=== PATIENT | female | born 1930 | race Caucasian/White ===

== ENCOUNTER → 2016-08-11 | Outpatient (CLI) | payer OTHER ==
--- NOTE | 2016-08-11 11:14 | RAD ---
Examination: CT chest without contrast History: History of chest pain, cough for 3 weeks. Comparison: 08/16/2004 Technique: Axial CT images were performed without contrast. Coronal sagittal reformats performed. PQRS Compliance Statement: One or more of the following individualized dose reduction techniques were utilized for this examination: 1. Automated exposure control 2. Adjustment of the mA and/or kV according to patient size 3. Use of iterative reconstruction technique Findings: The central airways are patent. Trace pericardial effusion identified. Diffuse coronary artery calcifications identified. There is a small 4 mm pulmonary nodule identified in the left upper lobe abutting the pleura. Mild prominent appearing interstitial lung markings identified in the peripheral portion of the bilateral upper lobes and in the lower lobes likely chronic interstitial lung disease. There is mild prominent bronchiectatic changes identified in the right middle lobe, bibasal lungs grossly similar to prior exam. No evidence of pleural effusion or pneumothorax identified. The visualized noncontrasted liver, spleen, adrenals grossly appears unremarkable. Degenerative changes identified in thoracic spine. Impression: 1. Bronchiectatic changes present in the bilateral lungs again identified. Mild prominent appearing bilateral interstitial lung markings in the bilateral lungs likely chronic interstitial changes. 2. 4 mm nodule identified in the left upper lobe of the lung abutting the pleura. Follow-up per Fleischner Society guidelines. 3 Trace pericardial effusion.. 4.Coronary artery calcifications. The Fleischner Society guidelines for followup of an incidentally detected 4 mm or smaller pulmonary nodule are as follows: If the patient is a low risk patient (non-smoker and no known tumor), a 4 mm nodule does not need followup. If the patient has a primary extra thoracic tumor or hematogenous infection, this nodule cannot be ignored as it could represent metastasis or septic embolus. If the patient is a high risk patient (smoker or has an extrathoracic primary), followup chest CT in one year is recommended. If unchanged, no further follow-up is recommended.
== END | disposition home or self-care (01) ==
LOC: CT 10:46
PROVIDERS: ATTEND Physician Assistant Medical
DX: R07.89 Other chest pain (principal); I31.3 Pericardial effusion (noninflammatory); I25.10 Atherosclerotic heart disease of native coronary artery without angina pectoris
CPT/HCPCS: 71250

== ENCOUNTER → 2017-02-06 | Outpatient (CLI) | payer OTHER ==
--- NOTE | 2017-02-06 09:13 | RAD ---
Chest, 2 views, 02/06/2017: History: Chest and back pain, dry cough Comparison is made to a study from 08/08/2016. The heart size is normal. There is calcific plaquing of the aorta. There are prominent interstitial markings in the lungs in an interstitial pattern. There is dominant involvement of the lung bases. The CT study of 08/11/2016 suggests that these findings are due to fibrosis. No new pulmonary infiltrate is seen. There is no evidence of pleural fluid. Moderate spurring is present in the spine. IMPRESSION: 1. Moderate pulmonary fibrosis. 2. No acute cardiopulmonary abnormality is detected.
== END | disposition home or self-care (01) ==
LOC: DXRADRC 08:15
PROVIDERS: ATTEND Physician Assistant Medical
DX: J84.10 Pulmonary fibrosis, unspecified (principal); R07.9 Chest pain, unspecified; I70.0 Atherosclerosis of aorta; M54.9 Dorsalgia, unspecified
CPT/HCPCS: 71020

== ENCOUNTER → 2017-05-02 | Outpatient (CLI) | payer OTHER ==
--- NOTE | 2017-05-02 10:19 | RAD ---
Carotid ultrasound, 05/02/2017: History: Intermittent visual disturbance Duplex evaluation of the carotid arteries in the neck was performed including grayscale, color-flow and spectral Doppler analysis. There is moderate smooth intimal thickening in both common carotid arteries with moderate partially calcified plaque at the left carotid bifurcation. A lesser degree of plaquing is present at the right bifurcation. The peak systolic velocity in the left internal carotid artery is 83 cm/s with an end-diastolic velocity of 18 cm/s. The peak systolic velocity in the right internal carotid artery is 72 cm/s with an end-diastolic velocity of 21 cm/s. The Doppler findings suggest narrowing in the 0-50% diameter range. Anterior grade flow is present in both vertebral arteries in the neck. IMPRESSION: Mild to moderate atherosclerotic plaquing at the carotid bifurcations, left greater than right, with underlying luminal narrowing in the 0-50% diameter range bilaterally. Note: Stenosis calculations for CTA, MRA and conventional angiography are based upon determination of the distal ICA diameter in accordance with the NASCET methodology. Stenosis calculations for Doppler studies are derived from validated velocity criteria which are known to correlate with NASCET methodology of determining stenosis.
== END | disposition home or self-care (01) ==
LOC: US 08:17
PROVIDERS: ATTEND Physician Assistant Medical
DX: H53.9 Unspecified visual disturbance (principal); I65.23 Occlusion and stenosis of bilateral carotid arteries
CPT/HCPCS: 93880

== ENCOUNTER → 2018-07-16 | Outpatient (CLI) | payer OTHER ==
--- NOTE | 2018-07-16 15:46 | RAD ---
Chest, 2 views, 07/16/2018: HISTORY: Cough, acute bronchitis Comparison is made to a study from 02/06/2017. The heart size is within normal limits. There is extensive calcific plaquing of the thoracic aorta. There is moderate interstitial prominence in the lungs with dominant involvement of the lung bases. A similar appearance was present on the previous study. The findings suggest chronic interstitial lung disease/fibrosis. No new pulmonary opacities are seen. There is no evidence of pleural fluid. There is a mild thoracolumbar scoliosis with moderate multilevel degenerative change. IMPRESSION: 1. Unchanged moderate bilateral interstitial opacities most compatible with fibrosis. 2. Extensive aortic atherosclerosis. 3. No new abnormality is detected. Electronically signed by: Angel Acevedo MD (07/16/2018 3:43 PM) [facility]
== END | disposition home or self-care (01) ==
LOC: PMG 11:34
PROVIDERS: ATTEND Family Medicine
DX: J20.9 Acute bronchitis, unspecified (principal); M41.85 Other forms of scoliosis, thoracolumbar region; M47.895 Other spondylosis, thoracolumbar region; I70.0 Atherosclerosis of aorta
CPT/HCPCS: 71046

== ENCOUNTER 2018-08-12 11:04 | Inpatient (IN) | payer OTHER ==
[~2018-08-12] VITALS: Ht 154.9 cm; Wt 51.0 kg
[2018-08-12 11:36] VITALS: BP 132/77
[2018-08-12 12:35] LABS: INFLUENZA A PATIENT NEGATIVE (NEGATIVE); INFLUENZA B PATIENT NEGATIVE (NEGATIVE)
[2018-08-12 13:15] LABS: BASO # 0.1 x10^3/uL (0.0-0.2); BASO % 1 % (0-3); EOS # 0.1 x10^3/uL (0.0-0.7); EOS % 1 % (0-3); HEMATOCRIT 31.3 % (36.0-47.0); HEMOGLOBIN 10.1 g/dL (12.0-15.5); LYMPH # 1.1 x10^3/uL (1.0-4.8); LYMPH % 11 % (24-48); MEAN CORPUSCULAR HEMOGLOBIN 26 pg (25-35); MEAN CORPUSCULAR HGB CONC 32 g/dL (31-37); MEAN CORPUSCULAR VOLUME 79 fL (79-100); MONO # 0.5 x10^3/uL (0.0-1.1); MONO % 5 % (0-9); NEUT # 8.6 x10^3uL (1.8-7.7); NEUT % 83 % (31-73); PLATELET COUNT 489 x10^3/uL (140-400); RED BLOOD COUNT 3.97 x10^6/uL (3.50-5.40); RED CELL DISTRIBUTION WIDTH 17.4 % (11.5-14.5); WHITE BLOOD COUNT 10.4 x10^3/uL (4.0-11.0)
[2018-08-12 13:29] LABS: ALBUMIN 2.4 g/dL (3.4-5.0); ALBUMIN/GLOBULIN RATIO 0.6 (1.0-1.7); CALCIUM 8.7 mg/dL (8.5-10.1); GFR 52.6; POTASSIUM 4.5 mmol/L (3.5-5.1); TOTAL BILIRUBIN 0.4 mg/dL (0.2-1.0); TOTAL PROTEIN 6.5 g/dL (6.4-8.2)
[2018-08-12] MEDS ORDERED: methylPREDNISolone SOD SUCC PF 125 MG/2 ML VIAL. IV ONE (13:30)
[2018-08-12] MEDS: IV NORMAL SALINE 1,000ML 1,000 ML IV SCH (13:54)
[2018-08-12] MEDS ORDERED: IOHEXOL 350 MG/ML 100 ML VIAL. IV ONE (14:00)
[2018-08-12] MEDS ORDERED: CONTRAST GIVEN MC PRN (14:00)
[2018-08-12 15:25] VITALS: BP 99/59
[2018-08-12] MEDS ORDERED: IPRATRPIUM/ALBUTEROL 0.5/2.5MG 3 ML NEBU. NEB SCH ×2 (16:00→20:00)
[2018-08-12] MEDS: IPRATRPIUM/ALBUTEROL 0.5/2.5MG 3 ML NEBU. NEB SCH ×2 (16:14→20:42)
[2018-08-12] MEDS ORDERED: MELO15TA23 PO (17:46)
[2018-08-12] MEDS ORDERED: LEVO50TA5 PO (17:46)
[2018-08-12] MEDS ORDERED: LOSA50TA14 PO (17:46)
[2018-08-12] MEDS ORDERED: CHOL10003 PO (17:46)
[2018-08-12] MEDS ORDERED: PRED5DRO16 EACHEYE (17:46)
[2018-08-12] MEDS ORDERED: HYDR12.58 PO (17:46)
--- NOTE | 2018-08-12 17:48 | RAD ---
Chest CTA History: Shortness of air Technique: After bolus of intravenous contrast, CT imaging was performed of the chest. Multiplanar reconstruction images to include MIP reconstruction images are submitted. Exposure: One or more of the following individualized dose reduction techniques were utilized for this examination: 1. Automated exposure control 2. Adjustment of the mA and/or kV according to patient size 3. Use of iterative reconstruction technique. Comparison: Noncontrast chest CT August 11, 2016 Findings: [ ] There is fairly significant motion degradation especially for the mid to inferior aspect of the exam, significantly limits accurate evaluation for pulmonary embolic disease more inferiorly. No embolism is identified of the main pulmonary arteries or the proximal segmental branches of the upper lobes. There is some scattered atelectasis and reticular density at the lung bases bilaterally, also degree of septal thickening and honeycombing near the lung bases. There is no pneumothorax or pleural pericardial fluid. There is some coronary calcification. Thoracic aortic caliber is within normal limits without intraluminal flap, scattered plaque present. There is probable hepatic steatosis. There is some gas distention of the visualized esophagus. Impression: 1. No central pulmonary embolism is identified although limited evaluation for pulmonary embolic disease as stated especially of the inferior aspects of the pulmonary arteries. There is atelectasis with basilar predominance bilaterally, also degree of reticular density and honeycombing with basilar predominance likely component of interstitial lung disease. 2. There is some coronary calcification. 3. There is probable hepatic steatosis. Electronically signed by: Abhishek Hardin MD (08/12/2018 5:44 PM) [facility]
[2018-08-12] MEDS ORDERED: prednisoLONE ACETATE 1% OPHTH SUSPENSION 5ML BOTTLE. OU PRN (19:00)
--- NOTE | 2018-08-12 19:06 | HP ---
ADMIT DATE: 08/12/2018 An 88-year-old female seen at the [facility], came in with increased shortness of breath, difficulty breathing. The patient was admitted to the hospital for further evaluation and treatment of her acute exacerbation of COPD as well as the possibility of pneumonia as well. The patient is having difficulty with breathing, very short of breath. Denied chest pain, denied any nausea, vomiting, melena, hematochezia, hematemesis. CLARI KENYON MD DR: LUIS ALFREDO/kulwinder JOB#: [id number] / [id number]
[2018-08-12 19:09] VITALS: BP 95/59
[2018-08-12] MEDS: methylPREDNISolone SOD SUCC PF 40 MG/ML VIAL. IV SCH (21:00)
[2018-08-12 23:12] VITALS: BP 95/66
[2018-08-13 05:14] VITALS: BP 113/64
[2018-08-13] MEDS: IPRATRPIUM/ALBUTEROL 0.5/2.5MG 3 ML NEBU. NEB SCH ×4 (05:38→20:32)
[2018-08-13] MEDS: IV NORMAL SALINE 1,000ML 1,000 ML IV SCH ×2 (05:49→16:53)
[2018-08-13] MEDS: LEVOTHYROXINE 50 MCG TABLET PO SCH (05:49)
[2018-08-13 06:39] LABS: BASO % 0 % (0-3); EOS % 0 % (0-3); HEMATOCRIT 30.6 % (36.0-47.0); HEMOGLOBIN 9.9 g/dL (12.0-15.5); LYMPH # 1.3 x10^3/uL (1.0-4.8); LYMPH % 12 % (24-48); MEAN CORPUSCULAR HEMOGLOBIN 26 pg (25-35); MEAN CORPUSCULAR HGB CONC 32 g/dL (31-37); MEAN CORPUSCULAR VOLUME 79 fL (79-100); MONO # 0.1 x10^3/uL (0.0-1.1); MONO % 1 % (0-9); NEUT # 8.9 x10^3uL (1.8-7.7); NEUT % 86 % (31-73); PLATELET COUNT 450 x10^3/uL (140-400); RED BLOOD COUNT 3.88 x10^6/uL (3.50-5.40); RED CELL DISTRIBUTION WIDTH 17.3 % (11.5-14.5); WHITE BLOOD COUNT 10.3 x10^3/uL (4.0-11.0)
[2018-08-13 06:48] LABS: CALCIUM 8.7 mg/dL (8.5-10.1); CREATININE 1.1 mg/dL (0.6-1.0); GFR 47.1; POTASSIUM 4.3 mmol/L (3.5-5.1)
[2018-08-13 07:15] LABS: BACTERIA,URINE 0 /HPF (0-FEW); BILIRUBIN,URINE NEG (NEG); CLARITY,URINE CLEAR; COLOR,URINE YELLOW; GLUCOSE,URINE 250 mg/dL (NEG); NITRITE,URINE NEG (NEG); SQUAMOUS EPITHELIAL CELL,UR OCC /LPF; UROBILINOGEN,URINE 0.2 mg/dL (0.2 mg/dL)
[2018-08-13] MEDS: CHOLECALCIFEROL (VITAMIN D3) 1,000 UNIT TABLET PO SCH (08:47)
[2018-08-13] MEDS: hydroCHLOROthiazide 12.5 MG CAPSULE PO SCH (08:47)
[2018-08-13] MEDS: methylPREDNISolone SOD SUCC PF 40 MG/ML VIAL. IV SCH ×3 (08:47→23:28)
[2018-08-13] MEDS: MELOXICAM 15 MG TABLET. PO SCH (08:47)
[2018-08-13] MEDS: LOSARTAN 50 MG TABLET. PO SCH (08:48)
[2018-08-13 10:46] VITALS: BP 104/63
[2018-08-13] MEDS ORDERED: PIP/TAZO PER PHARMACY MC PRN (15:00)
[2018-08-13 15:30] VITALS: BP 101/53
[2018-08-13] MEDS ORDERED: VANCOMYCIN 1.25 GM in IV NORMAL SALINE 250ML 250 ML IV ONE (16:00)
[2018-08-13] MEDS: VANCOMYCIN PER PHARMACY MC PRN (16:01)
--- NOTE | 2018-08-13 16:19 | HP ---
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 She has also had cough with scanty sputum. She has also had fever and has had lab work, which showed that she has elevated D-dimer. Her influenza A and B were negative and she underwent CT angio of the chest that showed no evidence of pulmonary embolism, but she has atelectasis with basilar predominance bilaterally, also degree of reticular density accompanied with basilar predominance, likely component of interstitial lung disease. There is some coronary calcification and was admitted for probably healthcare-associated pneumonia, possible overlying and underlying pulmonary fibrosis. She was continued on her medication as well as IV antibiotic and IV steroids. PAST MEDICAL HISTORY: Significant for hypertension, hyperlipidemia, hypothyroidism and she has also glaucoma. PAST SURGICAL HISTORY: Significant for left ankle fracture, status post open reduction and internal fixation. ALLERGIES: She has no known drug allergies. MEDICATIONS: She is currently on losartan potassium 50 mg once a day, Meloxicam 15 mg daily, hydrochlorothiazide 12.5 mg daily, prednisolone acetate 1 drop to both eyes 4 times a day, levothyroxine sodium 50 mcg daily, Colecalciferol vitamin D3 1000 International unit once a day. FAMILY HISTORY: She has 2 sisters and 2 brothers, all younger than her. She has one of the sister is a nun, the other one is and has 10 children and both lives in [place]. She has 2 brothers, both lives in [place], one has coronary artery disease and the younger one has diabetes. Her father at age of 90. Mother at age of 69. 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 SOCIAL HISTORY: She does not smoke and does not like alcohol. REVIEW OF SYSTEMS: The patient denied any blurring of vision, cataract, glaucoma or macular degeneration. Denied any earache, tinnitus or sensorineural deafness. Denied any nosebleeds, stuffy nose or postnasal drip. Denied any sore throat, sore tongue, toothache, hoarseness of voice or difficulty swallowing. Denied any nausea, vomiting, diarrhea or constipation. Denied any hematemesis, melena or hematochezia. Denied any dysuria, frequency or hematuria. She did complain of shortness of breath, cough with scanty sputum. PHYSICAL EXAMINATION: GENERAL: On arrival to the Emergency Room, she apparently was slightly tachypneic, pale, but no jaundice, cyanosis, or thyromegaly. No jugular venous distention. No limb edema. VITAL SIGNS: Her heart rate was 120, blood pressure was 132/77, temperature was 97.2, respiratory rate was 20, and oxygen saturation was 99%. HEAD, EYES, EARS, NOSE AND THROAT: Showed normocephalic, atraumatic. NECK: Supple. HEART: Showed normal first and second heart sounds. No gallop or murmur. CHEST: Shows central trachea, equal bilateral expansion, air entry, vesicular breath sounds, with crepitation, mostly on the right side posteriorly. I could not appreciate any crepitation. ABDOMEN: Slightly distended, soft and nontender. NEUROLOGIC: She was awake, alert, responding appropriately. Her cranial nerves are intact. EXTREMITIES: She moves extremities without difficulty. LABORATORY DATA: Her lab work on admission showed a white cell count of 10,400, hemoglobin 10, hematocrit 31, MCV 79 and platelet count of 489,000 with normal manual differential. Her D-dimer was 2.99. Her chemistry showed a serum sodium 134, potassium 4.5, chloride 101, bicarbonate 25, anion gap of 8, BUN 23, creatinine 1, estimated GFR was 52 mL per minute. Her glucose 104, calcium was 8.7, lactic acid was 1.5. Total bilirubin, AST, ALT, alkaline phosphatase were normal. Total protein was 6.5, albumin was 2.4. Her urinalysis was negative for nitrite and leukocyte esterase. There were 3-5 rbc's, 1-4 wbc's, and no bacteria. Her nasal screen for MRSA by PCR was negative and her influenza A and B were negative. She did have a CT angio of the chest, which showed that the patient has no central pulmonary embolism. She has atelectasis with basilar predominance bilaterally, also degree of reticular density accompanied with basilar predominance, likely component of interstitial lung disease, some coronary calcification and probably hepatic steatosis. PLAN: My plan is to continue with all her medication. I will change her IV antibiotic. Increase her steroids to 3 times a day. I will start her on vancomycin and Zosyn and discontinue her ceftriaxone and decide further management accordingly. DYLAN BENÍTEZ MD DR: PURA/kulwinder JOB#: [id number] / [id number]
[2018-08-13 19:30] VITALS: BP 106/65
[2018-08-13] MEDS: PIPERACILLIN/TAZOBACTAM 2.25 GM in IV NORMAL SALINE 50ML 50 ML IV SCH ×2 (19:30→23:28)
[2018-08-13] MEDS: MONTELUKAST 10 MG TABLET. PO SCH (20:14)
[2018-08-13] MEDS: LACTOBACILLUS RHAMNOSUS GG 1 CAPSULE. PO SCH (20:15)
[2018-08-13 22:18] VITALS: BP 116/63
--- NOTE | 2018-08-13 23:57 | PN ---
DATE: 08/13/2018 SUBJECTIVE: The patient is resting slightly propped up in bed, clearly short of breath. She is unable to finish sentence, complaining of cough, shortness of breath. PHYSICAL EXAMINATION: GENERAL: When I examined her, she looked pale, but no jaundice, cyanosis, or thyromegaly. No jugular venous distension. No lower limb edema. VITAL SIGNS: Her heart rate was 105, blood pressure was 104/63, temperature was 98.2, respiratory rate was 18 and oxygen saturation was 98% on room air. HEAD, EYES, EARS, NOSE AND THROAT: Showed normocephalic, atraumatic. NECK: Supple. CARDIAC: Normal first and second heart sounds. No gallop, rub or murmur. CHEST: Showed central trachea, equal bilateral expansion, air entry, vesicular sounds with crepitation mostly on the right side posteriorly. I could not appreciate any rhonchi. ABDOMEN: Scaphoid, soft, nontender. NEUROLOGIC: She is awake, alert, responding appropriately. All cranial nerves are intact. She moves extremities without difficulty. LABORATORY DATA: Her white cell count was 10,000, hemoglobin 10, hematocrit 30, MCV 79 and platelet count of 450,000. Her chemistry showed a serum sodium 136, potassium 4.3, chloride 103, bicarbonate 22, anion gap of 11, BUN 23, creatinine 1.1. Estimated GFR was 47 mL and blood glucose 185, calcium was 8.7. ASSESSMENT: 1. Healthcare-associated pneumonia, questionable underlying interstitial lung disease. 2. Hypertension. 3. Hyperlipidemia. 4. Hypothyroidism. PLAN: To continue with IV antibiotics. I changed her antibiotic to vancomycin and Zosyn. I increased her steroids to be taken every 8 hours. I added Mucinex and Singulair. DYLAN BENÍTEZ MD DR: PURA/kulwinder JOB#: [id number] / [id number]
[2018-08-14] MEDS: IPRATRPIUM/ALBUTEROL 0.5/2.5MG 3 ML NEBU. NEB SCH ×4 (05:20→20:51)
[2018-08-14] MEDS: PIPERACILLIN/TAZOBACTAM 2.25 GM in IV NORMAL SALINE 50ML 50 ML IV SCH ×3 (05:32→19:07)
[2018-08-14] MEDS: LEVOTHYROXINE 50 MCG TABLET PO SCH (05:32)
[2018-08-14] MEDS: IV NORMAL SALINE 1,000ML 1,000 ML IV SCH ×2 (05:37→20:38)
[2018-08-14 05:48] VITALS: BP 117/63
[2018-08-14] MEDS: MELOXICAM 15 MG TABLET. PO SCH ×2 (09:00→09:06)
[2018-08-14] MEDS: CHOLECALCIFEROL (VITAMIN D3) 1,000 UNIT TABLET PO SCH (09:05)
[2018-08-14] MEDS: LOSARTAN 50 MG TABLET. PO SCH (09:05)
[2018-08-14] MEDS: hydroCHLOROthiazide 12.5 MG CAPSULE PO SCH (09:05)
[2018-08-14] MEDS: methylPREDNISolone SOD SUCC PF 40 MG/ML VIAL. IV SCH ×2 (09:05→17:16)
[2018-08-14] MEDS: LACTOBACILLUS RHAMNOSUS GG 1 CAPSULE. PO SCH ×2 (09:05→20:36)
[2018-08-14 10:35] VITALS: BP 124/68
[2018-08-14 15:08] VITALS: BP 97/59
[2018-08-14] MEDS ORDERED: VANCOMYCIN 750 MG in IV NORMAL SALINE 250ML 250 ML IV SCH (16:00)
[2018-08-14 19:03] VITALS: BP 117/60
[2018-08-14] MEDS: MONTELUKAST 10 MG TABLET. PO SCH (20:36)
[2018-08-14] MEDS ORDERED: ACETAMINOPHEN 325 MG TABLET PO PRN (21:15)
--- NOTE | 2018-08-14 21:17 | PN ---
DATE: 08/14/2018 SUBJECTIVE: The patient is sitting comfortably in her chair, in no apparent distress. She has been up and about, walking with a walker, maintaining adequate saturations of 99% on room air. On questioning her, she stated that she is feeling much better, less short of breath. No chest tightness. PHYSICAL EXAMINATION: GENERAL: When I examined her, she looked well and was clearly in no apparent respiratory distress. No pallor, jaundice, cyanosis or thyromegaly. No jugular venous distension. She is pale, no jaundice, cyanosis, or thyromegaly. No jugular venous distension. No lower limb edema. VITAL SIGNS: Her heart rate was 82, blood pressure was ____, temperature was 97.6, respiratory rate was 18 and oxygen saturation was 99% on room air. HEAD, EYES, EARS, NOSE AND THROAT: Showed normocephalic, atraumatic. NECK: Supple. HEART: Showed normal first and second heart sounds with no gallop, rub or murmur. CHEST: Showed central trachea. She has equal bilateral chest expansion, air entry, vesicular breath sounds with crepitation mostly in the right side posteriorly. I could not appreciate any rhonchi. ABDOMEN: Scaphoid, soft, nontender. NEUROLOGIC: She is awake, alert, responding appropriately. All her cranial nerves are intact. She moves extremities without difficulty. She ambulates with a walker. Her intake over the last 24 hours was 900 and output was 400. LABORATORY DATA: As of this morning showed that her serum sodium was 136, potassium 4.3, chloride 103, bicarbonate 22, anion gap 11, BUN 23, creatinine 1.1. Her white cell count was 10,000, hemoglobin 10, hematocrit 30, MCV 79 and platelet count 450,000. ASSESSMENT: 1. Healthcare-associated pneumonia, question of possible underlying interstitial lung disease and responding well to IV antibiotic. 2. Hypertension. 3. Hyperlipidemia. 4. Hypothyroidism. PLAN: To continue with vancomycin and Zosyn. Continue with the Mucinex and Singulair. Continue with oxygen supplementation as needed. Continue with IV steroids and all other medication. I will evaluate her again tomorrow, and if she remains stable, she can be discharged back to continue on oral antibiotic in a tapering course of steroids. DYLAN BENÍTEZ MD DR: PURA/kulwinder JOB#: [id number] / [id number]
[2018-08-14 23:02] VITALS: BP 110/61
[2018-08-15] MEDS: PIPERACILLIN/TAZOBACTAM 2.25 GM in IV NORMAL SALINE 50ML 50 ML IV SCH ×3 (00:25→13:52)
[2018-08-15] MEDS: methylPREDNISolone SOD SUCC PF 40 MG/ML VIAL. IV SCH ×2 (00:26→08:33)
[2018-08-15 05:03] VITALS: BP 130/74
[2018-08-15] MEDS: IPRATRPIUM/ALBUTEROL 0.5/2.5MG 3 ML NEBU. NEB SCH ×2 (05:03→10:45)
[2018-08-15] MEDS: LEVOTHYROXINE 50 MCG TABLET PO SCH (05:45)
[2018-08-15 06:04] LABS: BASO % 0 % (0-3); EOS % 0 % (0-3); HEMATOCRIT 30.2 % (36.0-47.0); HEMOGLOBIN 9.4 g/dL (12.0-15.5); LYMPH # 1.2 x10^3/uL (1.0-4.8); LYMPH % 9 % (24-48); MEAN CORPUSCULAR HEMOGLOBIN 25 pg (25-35); MEAN CORPUSCULAR HGB CONC 31 g/dL (31-37); MEAN CORPUSCULAR VOLUME 80 fL (79-100); MONO # 0.2 x10^3/uL (0.0-1.1); MONO % 2 % (0-9); NEUT # 11.5 x10^3uL (1.8-7.7); NEUT % 89 % (31-73); PLATELET COUNT 425 x10^3/uL (140-400); RED CELL DISTRIBUTION WIDTH 17.6 % (11.5-14.5); WHITE BLOOD COUNT 12.9 x10^3/uL (4.0-11.0)
[2018-08-15 06:15] LABS: CALCIUM 8.7 mg/dL (8.5-10.1); CREATININE 1.1 mg/dL (0.6-1.0); GFR 47.1; POTASSIUM 4.2 mmol/L (3.5-5.1)
[2018-08-15] MEDS: LACTOBACILLUS RHAMNOSUS GG 1 CAPSULE. PO SCH (08:33)
[2018-08-15] MEDS: MELOXICAM 15 MG TABLET. PO SCH ×2 (08:34→08:46)
[2018-08-15] MEDS: LOSARTAN 50 MG TABLET. PO SCH (08:34)
[2018-08-15] MEDS: hydroCHLOROthiazide 12.5 MG CAPSULE PO SCH (08:34)
[2018-08-15] MEDS: CHOLECALCIFEROL (VITAMIN D3) 1,000 UNIT TABLET PO SCH (08:34)
[2018-08-15 10:41] VITALS: BP 113/61
[2018-08-15 14:52] VITALS: BP 113/67
[2018-08-15] MEDS ORDERED: AMOX1TAB58 PO (15:17)
[2018-08-15 15:53] LABS: VANC TR 14.1 mcg/mL (10.0-20.0)
[2018-08-15] MEDS: VANCOMYCIN PER PHARMACY MC PRN (16:25)
--- NOTE | 2018-08-15 16:41 | DS ---
DATE OF DISCHARGE: 08/15/2018 HOSPITAL COURSE: The patient is sitting comfortably in her chair, in no apparent distress. Definitely much better. She is not tachypneic. She is able to finish sentence without difficulty. She is not using any accessory muscles and has been up and about, maintaining her oxygen saturation at 96% on room air. OBJECTIVE: GENERAL: When I examined her this afternoon, she looked well and was clearly in no apparent respiratory distress, pale, but no jaundice, cyanosis, or thyromegaly. No jugular venous distention. No limb edema. VITAL SIGNS: Her heart rate was 78, blood pressure 113/67, temperature was 98.1, respiratory rate 20, and oxygen saturation was 96%. HEAD, EYES, EARS, NOSE AND THROAT: Showed normocephalic, atraumatic. NECK: Supple. HEART: Showed normal first and second heart sounds with no gallop, rub or murmur. CHEST: Showed central trachea, equal bilateral expansion, air entry, vesicular sounds with crepitation mostly in the right side posteriorly. I could not appreciate any rhonchi. ABDOMEN: Distended and nontender. NEUROLOGIC: She is awake, alert, responding appropriately. All cranial nerves are intact. She moves extremities without difficulty. She ambulates with a walker. Her intake was 2200, output was 1125. LABORATORY DATA: Her lab work this morning showed a white cell count 12,900, hemoglobin 9, hematocrit 30, MCV 80 and platelet count of 425,000. Her chemistry showed a serum sodium 141, potassium 4.2, chloride 108, bicarbonate 20, anion gap of 13, BUN 25, creatinine was 1.1. Estimated GFR was 47 mL per minute. Her glucose 184, calcium was 8.7. ASSESSMENT: 1. Healthcare-associated pneumonia with possible underlying interstitial lung disease. The patient is responding very well to the antibiotic. However, her blood culture is so far negative and the patient was switched to Augmentin 500/125 twice a day for most of 7 more days. 2. Hypertension. 3. Hyperlipidemia. 4. Hypothyroidism. 5. Protein-calorie malnutrition with serum albumin is only 2.4 g/dL. The patient also blood sugar was high after we put her on steroids. I recommended that she should follow with her primary care physician to check her blood sugar. DYLAN BENÍTEZ MD DR: PURA/kulwinder JOB#: [id number] / [id number]
[2018-08-16] MEDS ORDERED: predniSONE 20 MG TABLET PO SCH (09:00)
== END 2018-08-15 16:21 | disposition home or self-care (01) | DRG 193 ==
LOC: 1 SOUTH 11:04
PROVIDERS: ADMIT Internal Medicine; ATTEND Internal Medicine
DX: J18.9 Pneumonia, unspecified organism (principal); E43 Unspecified severe protein-calorie malnutrition; J44.1 Chronic obstructive pulmonary disease with (acute) exacerbation; J98.11 Atelectasis; J44.0 Chronic obstructive pulmonary disease with (acute) lower respiratory infection; Y95 Nosocomial condition; I10 Essential (primary) hypertension; E78.5 Hyperlipidemia, unspecified; E03.9 Hypothyroidism, unspecified; H40.9 Unspecified glaucoma; I25.10 Atherosclerotic heart disease of native coronary artery without angina pectoris; Z82.49 Family history of ischemic heart disease and other diseases of the circulatory system; Z83.3 Family history of diabetes mellitus; Z87.81 Personal history of (healed) traumatic fracture; Z68.21 Body mass index [BMI] 21.0-21.9, adult
CPT/HCPCS: 36415; 71275; 80048; 80053; 80202; 81001; 83605; 85025; 85379; 87086; 87641; 87804; 94640; J0696; J2543; J2920; J2930; J3370; J7050; J7620; Q9967; 97110; 97116; 97535; J7030

== ENCOUNTER → 2018-10-10 | Outpatient (CLI) | payer OTHER ==
[~2018-10-10] MED LIST: AMOX1TAB58 PO; CHOL10003 PO; HYDR12.58 PO; LEVO50TA5 PO; LOSA50TA14 PO; MELO15TA23 PO; PRED5DRO16 EACHEYE
--- NOTE | 2018-10-10 11:04 | RAD ---
CT head without contrast dated 10/10/2018. No comparison available. Clinical data indication: Headaches. TECHNIQUE: Contiguous axial imaging the head was performed from skull base to vertex. No contrast administered. One or more of the following individualized dose reduction techniques were utilized for this examination: 1. Automated exposure control 2. Adjustment of the mA and/or kV according to patient size 3. Use of iterative reconstruction technique FINDINGS: Ventricles and sulci are mildly prominent for age. No midline shift or mass effect. Brain parenchyma is of normal attenuation. No hemorrhage or extra-axial collection. There is minimal mucosal thickening of the posterior ethmoid air cells on the left. The visualized paranasal sinuses and mastoid air cells are otherwise clear. No apparent calvarial abnormality. Atherosclerotic calcific patient of the parasellar carotid arteries. IMPRESSION: 1. No evidence of acute intracranial hemorrhage or mass. 2. Mild atrophy for age. Electronically signed by: Serge Perez MD (10/10/2018 11:00 AM) [id number]
== END | disposition home or self-care (01) ==
LOC: CT 10:33
PROVIDERS: ATTEND Physician Assistant Medical
DX: G31.9 Degenerative disease of nervous system, unspecified (principal); I70.8 Atherosclerosis of other arteries
CPT/HCPCS: 70450

== ENCOUNTER → 2018-12-19 | Outpatient (CLI) | payer OTHER ==
[~2018-12-19] MED LIST changes: +AZIT250T6 PO; +DULO30CA2 PO; +FERR325T14 PO; +FURO-69 PO; +HYDR200T5 PO; +IOHEXOL 240 MG/ML 50ML VIAL. ONE
[2018-12-19] MEDS: IOHEXOL 300 MG/ML 75 ML VIAL. IV ONE (09:50)
--- NOTE | 2018-12-19 11:20 | RAD ---
Examination: CT CHEST ABD PELVIS W/CONTRAST History: Weight loss, anemia Comparison/Correlation: CTA of the chest 08/12/2018, CT chest without contrast 08/11/2016, a 22,013 CT abdomen and pelvis with contrast Findings: Axial images of the chest, abdomen, and pelvis were obtained following IV and oral contrast. Sagittal and coronal reformatted images were provided. Axial images of chest, abdomen, and pelvis were obtained following IV contrast. Sagittal and coronal reformatted images were provided. Small nodule involving the anterior left mid thoracic region is unchanged with 08/11/2016. Fibrotic findings with honeycombing of the lung bases bilaterally are present. Few bullae involving lung caal noted. No enlarged thoracic lymph nodes. Atherosclerotic calcific involvement of the thoracic aorta is noted. Central pulmonary arterial vasculature is unremarkable. Calcified granuloma involving the posterior left mid thoracic region. Right humeral head anchor suture is present. Liver, spleen, pancreas, adrenal glands, and kidneys are unremarkable. Moderate quantity of stool is noted within the distal colon. Diverticulosis is present without acute inflammation. No inflammatory findings about the cecum. Gallbladder fossa is unremarkable. No ascites or pelvic free fluid. No enlarged abdominal or pelvic lymph nodes. Calcific involvement of the abdominal aorta is notable. Exaggerated lordosis of lumbar spine noted. Dextroconvex scoliosis of the low thoracic and lumbar spine is evident. Sacralization of L5 noted. Severe disc space narrowing involving the low thoracic spine and from T12 to L2 is present. Retrolisthesis of L1 in relation L2 is mild. Impression: Fibrosis and honeycombing of the lung bases of concern for usual interstitial pneumonia/idiopathic pulmonary fibrosis. No suspicious pulmonary nodule or infiltrate. Diverticulosis. PQRS Compliance Statement: One or more of the following individualized dose reduction techniques were utilized for this examination: 1. Automated exposure control 2. Adjustment of the mA and/or kV according to patient size 3. Use of iterative reconstruction technique Electronically signed by: Sotero Aguilar MD (12/19/2018 11:17 AM) [id number]
== END | disposition home or self-care (01) ==
LOC: CT 08:33
PROVIDERS: ATTEND Internal Medicine Hematology & Oncology
DX: K57.30 Diverticulosis of large intestine without perforation or abscess without bleeding (principal); J84.10 Pulmonary fibrosis, unspecified; M41.85 Other forms of scoliosis, thoracolumbar region; M48.05 Spinal stenosis, thoracolumbar region
CPT/HCPCS: 71260; 74177; Q9967

== ENCOUNTER 2018-12-22 08:05 | Inpatient (IN) | payer OTHER ==
[~2018-12-22] VITALS: Ht 154.9 cm; Wt 46.8 kg
[~2018-12-22 08:05] MED LIST changes: -AZIT250T6 PO; -DULO30CA2 PO; -FERR325T14 PO; -FURO-69 PO; -HYDR200T5 PO; -IOHEXOL 240 MG/ML 50ML VIAL. ONE
--- NOTE | 2018-12-22 08:23 | EKG ---
[address] [address] Test Date: 2018-12-22 Test Time: 08:22:04 Pat Name: JAYE MOROCHO Department: Room: Gender: F Rehab Care Assistant: : [id number] Requested By: SHELLY LIN Order Number: [id number] Reading MD: Measurements Intervals [place] Rate: 94 P: 9 FL: 144 QRS: -13 QRSD: 74 T: 6 QT: 332 QTc: 415 Interpretive Statements SINUS RHYTHM LEFTWARD AXIS NO SPECIFIC ECG ABNORMALITIES RI6.01 No previous ECG available for comparison
--- NOTE | 2018-12-22 08:35 | PHYS DOC ---
Adult General Chief Complaint Chief Complaint: chest pain HPI HPI 88-year-old female presents with chest pain. The patient states that it started last evening and was mild. At this time it has increased significantly. She rates it as moderate to severe. It is worse with deep breathing. Her anterior chest is also tender to palpation. The patient denies any trauma. She feels short of breath, pain is her primary concern. She denies diaphoresis. The patient is being treated by the [facility] for iron deficient anemia. She denies fever or chills. Review of Systems Review of Systems Constitutional: Denies fever or chills [] Eyes: Denies change in visual acuity, redness, or eye pain [] HENT: Denies nasal congestion or sore throat [] Respiratory: Denies cough or shortness of breath [] Cardiovascular: No additional information not addressed in HPI [] GI: Denies abdominal pain, nausea, vomiting, bloody stools or diarrhea [] : Denies dysuria or hematuria [] Musculoskeletal: Denies back pain or joint pain [] Integument: Denies rash or skin lesions [] Neurologic: Denies headache, focal weakness or sensory changes [] Endocrine: Denies polyuria or polydipsia [] All other systems were reviewed and found to be within normal limits, except as documented in this note. Allergies Allergies Allergies Coded Allergies Type Severity Reaction Last Updated Verified No Known Drug Allergies 08/12/18 No Physical Exam Physical Exam Constitutional: Well developed, well nourished, no acute distress, non-toxic appearance. [] HENT: Normocephalic, atraumatic, bilateral external ears normal, oropharynx moist, no oral exudates, nose normal. [] Eyes: PERRLA, EOMI, conjunctiva normal, no discharge. [] Neck: Normal range of motion, no tenderness, supple, no stridor. [] Cardiovascular:Heart rate regular rhythm, no murmur [] Lungs & Thorax: Bilateral breath sounds clear to auscultation. Central chest tender to palpation. [] Abdomen: Bowel sounds normal, soft, no tenderness, no masses, no pulsatile masses. [] Skin: Warm, dry, no erythema, no rash. [] Back: No tenderness, no CVA tenderness. [] Extremities: No tenderness, no cyanosis, no clubbing, ROM intact, no edema. [] Neurologic: Alert and oriented X 3, normal motor function, normal sensory function, no focal deficits noted. [] Psychologic: Affect normal, judgement normal, mood normal. [] EKG EKG Sinus rhythm, rate 94, normal axis, no ST elevations or depressions.[] Radiology/Procedures Radiology/Procedures [] Impressions: AP chest. HISTORY: Chest pain AP view was taken of the chest. Patient's taken a poor inspiration. There is pulmonary fibrosis in the lung bases similar to the prior study. The heart is within normal limits in size. There is atherosclerotic change in the aorta without an aneurysm. There are no confluent infiltrates. There is no pleural effusion. IMPRESSION: 1. Pulmonary fibrosis without change. 2. No new infiltrates. Electronically signed by: Mandeep Pike MD (12/22/2018 8:36 AM) [facility] DICTATED AND SIGNED BY: MANDEEP PIKE MD DATE: 12/22/18 0836 CC: SHELLY LIN DO; JOSUÉ ACUNA MD ~ Course & Med Decision Making Course & Med Decision Making Pertinent Labs and Imaging studies reviewed. (See chart for details) The patient's x-ray continues to show pulmonary fibrosis, but no acute changes. EKG is unremarkable. Troponin is negative. Labs are significant for an elevated proBNP of over 2000. I will give her 20 mg of Lasix IV. Patient also appears to be intravascularly depleted with an elevated creatinine of 1.6. Her history shows a normal of 1.1. I will give her 500 mL bolus of normal saline. I spoke to Dr. Alcala about the patient and he has accepted her for admission. [] Dragon Disclaimer Dragon Disclaimer This electronic medical record was generated, in whole or in part, using a voice recognition dictation system. Departure Departure: Impression: Primary Impression: Chest pain Additional Impressions: CHF (congestive heart failure) Elevated serum creatinine Disposition: ADMITTED INPATIENT Admitting Physician: Gina Alcala Condition: STABLE Referrals: JOSUÉ ACUNA MD (PCP) Problem Qualifiers SHELLY LIN DO Dec 22, 2018 08:35
--- NOTE | 2018-12-22 08:39 | RAD ---
AP chest. HISTORY: Chest pain AP view was taken of the chest. Patient's taken a poor inspiration. There is pulmonary fibrosis in the lung bases similar to the prior study. The heart is within normal limits in size. There is atherosclerotic change in the aorta without an aneurysm. There are no confluent infiltrates. There is no pleural effusion. IMPRESSION: 1. Pulmonary fibrosis without change. 2. No new infiltrates. Electronically signed by: Mandeep Pike MD (12/22/2018 8:36 AM) [facility]
[2018-12-22 09:01] LABS: BASO # 0.1 x10^3/uL (0.0-0.2); BASO % 1 % (0-3); EOS % 0 % (0-3); HEMATOCRIT 29.4 % (36.0-47.0); HEMOGLOBIN 9.1 g/dL (12.0-15.5); LYMPH # 1.2 x10^3/uL (1.0-4.8); LYMPH % 12 % (24-48); MEAN CORPUSCULAR HEMOGLOBIN 24 pg (25-35); MEAN CORPUSCULAR HGB CONC 31 g/dL (31-37); MEAN CORPUSCULAR VOLUME 76 fL (79-100); MONO # 0.9 x10^3/uL (0.0-1.1); MONO % 9 % (0-9); NEUT # 7.6 x10^3uL (1.8-7.7); NEUT % 78 % (31-73); PLATELET COUNT 527 x10^3/uL (140-400); RED BLOOD COUNT 3.88 x10^6/uL (3.50-5.40); WHITE BLOOD COUNT 9.8 x10^3/uL (4.0-11.0)
[2018-12-22 09:19] LABS: ALBUMIN 2.5 g/dL (3.4-5.0); ALBUMIN/GLOBULIN RATIO 0.6 (1.0-1.7); CALCIUM 8.6 mg/dL (8.5-10.1); CREATININE 1.6 mg/dL (0.6-1.0); GFR 30.6; POTASSIUM 4.4 mmol/L (3.5-5.1); TOTAL BILIRUBIN 0.4 mg/dL (0.2-1.0); TOTAL PROTEIN 6.7 g/dL (6.4-8.2)
[2018-12-22] MEDS ORDERED: AZIT250T6 PO (09:30)
[2018-12-22] MEDS ORDERED: DULO30CA2 PO (09:30)
[2018-12-22] MEDS ORDERED: FERR325T14 PO (09:30)
[2018-12-22] MEDS ORDERED: HYDR200T5 PO (09:30)
[2018-12-22] MEDS ORDERED: FUROSEMIDE 40 MG/4 ML VIAL IVP ONE (09:30)
[2018-12-22] MEDS ORDERED: ONDANSETRON PF 4 MG/2 ML VIAL. IV PRN (09:45)
[2018-12-22] MEDS ORDERED: IV NORMAL SALINE 500ML 500 ML IV ONE (09:45)
[2018-12-22] MEDS ORDERED: FURO-69 PO (10:31)
--- NOTE | 2018-12-22 10:58 | NUR ---
PATIENT ARRIVED TO UNIT VIA EMS. PATIENT IS ACCOMPANIED BY [facility] AND FAMILY. PATIENT IS ORIENTED TO UNIT. PATIENT IS OFFERED BATHROOM. PATIENTS VS OBTAINED AND ARE STABLE. PATIENT IS VISITING IN ROOM WITH FAMILY AT THIS TIME.
[2018-12-22 11:03] VITALS: BP 113/69
[2018-12-22] MEDS ORDERED: prednisoLONE ACETATE 1% OPHTH SUSPENSION 5ML BOTTLE. OU PRN (12:15)
[2018-12-22] MEDS: IV NORMAL SALINE 1,000ML 1,000 ML IV SCH (12:15)
--- NOTE | 2018-12-22 13:31 | NUR ---
DR BENÍTEZ NOTIFIED OF ELEVATED D-DIMER. NO NEW ORDERS RECEIVED.
[2018-12-22 15:23] VITALS: BP 93/57
--- NOTE | 2018-12-22 15:53 | HP ---
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 Apparently, she was awakened because of that. She rates her pain as about 8/10 in severity and made worse by movement and taking a deep breath. She denied any fall or trauma, denied any nausea or vomiting, denied any diaphoresis. Did complain shortness of breath. The pain is easily reducible. She has marked tenderness of her sternum, none on the either side of the sternum. She apparently has had a CT scan of the chest with oral and IV contrast recently done and ordered by Dr. Grider ____ for anemia and weight loss. At that time, the CT scan showed that the patient has fibrosis and honeycombing of the lung bases with concern for usual interstitial pneumonitis, idiopathic pulmonary fibrosis. This was done on 12/19/2018 using both oral and IV contrast. At that time, her GFR was 41. Unfortunately, her kidney function has worsened and her creatinine has risen from 1 to 1.6, likely due to contrast-induced nephropathy. The patient was investigated in the Emergency Room, was found to have that her first set of cardiac enzyme was normal, less than 0.017. Her BNP was elevated at 2332. She apparently was treated with 20 mg of IV Lasix and was given 500 mL of normal saline and was admitted for further evaluation and treatment. PAST MEDICAL HISTORY: Significant for hypertension, hyperlipidemia, hypothyroidism. She also is known to have glaucoma and idiopathic pulmonary fibrosis. PAST SURGICAL HISTORY: Significant for left ankle fracture, status post open reduction and internal fixation in 2014. ALLERGIES: She has no known drug allergies. MEDICATIONS: She is currently on following medications: She is on hydroxychloroquine sulfate 200 mg daily, ferrous sulfate 325 mg twice a day, losartan potassium 50 mg daily, meloxicam 15 mg tablet once a day, duloxetine 30 mg daily, furosemide 20 mg twice a day, prednisolone acetate 1 drop to both eyes 4 times a day and levothyroxine sodium 50 mcg daily and cholecalciferol 1000 International Units once a day. FAMILY HISTORY: She has 2 sisters and 2 brothers, all younger than her. One of her sisters is a nun, the other one is and has ____ both live in [place]. She has 2 brothers, both live in [place]; one has coronary artery disease and the younger one has diabetes. Her father at age of 90. Mother at the age of 69. 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 SOCIAL HISTORY: Does not smoke and does not like alcohol. REVIEW OF SYSTEMS: The patient denied any blurring of vision, cataract, glaucoma or macular degeneration. Denied any earache, tinnitus or sensorineural deafness. Denied any nosebleeds, stuffy nose or postnasal drip. Denied any sore throat, sore tongue, toothache, hoarseness of voice or difficulty swallowing. Denied any nausea, vomiting, diarrhea or constipation. Denied any hematemesis, melena or hematochezia. Denied any dysuria, frequency or hematuria. Did complain of chest pain, mostly central, reproducible by palpating the sternum. She also complained of shortness of breath and apparently she has rapid shallow breathing. Taking a deep breath aggravates her chest pain, which is also aggravated by movement. PHYSICAL EXAMINATION: GENERAL: When I examined her this morning, she was resting, slightly propped up in bed, in no apparent respiratory distress. She was pale, somewhat cachectic, but no jaundice, cyanosis or thyromegaly. No jugular venous distension. No limb edema. VITAL SIGNS: Her heart rate was 98, blood pressure was 100/51, temperature was 98, respiratory rate was 18 and oxygen saturation was 96% on room air. HEAD, EYES, EARS, NOSE AND THROAT: Showed normocephalic, atraumatic. NECK: Supple. HEART: Showed normal first and second heart sounds with no gallop, rub or murmur. CHEST: Clear to auscultation. No crepitation or rhonchi. ABDOMEN: There is marked tenderness on palpating her sternum. Abdomen was scaphoid, soft, nontender. No guarding or rigidity. No organomegaly. All hernial orifices intact. Bowel sounds normal. NEUROLOGIC: She was awake, alert, responding appropriately. All cranial nerves intact. EXTREMITIES: She moves extremities without difficulty. LABORATORY DATA: Showed serum sodium 135, potassium 4.4, chloride 98, bicarbonate 27, anion gap of 10, BUN 33, creatinine was 1.6, estimated GFR was 30 mL per minute. Her glucose 125, calcium was 8.6. Total bilirubin, AST, ALT, alkaline phosphatase were normal. Troponin was less than 0.017. Her beta natriuretic peptide was 2332. Total protein was 6.7, albumin 2.5. Her white cell count was 9800, hemoglobin 9.1, hematocrit 29, MCV 76 and platelet count of 527,000 with normal manual differential. She has had an EKG, which showed that she was in sinus rhythm with a heart rate of 94 with normal axis, no ST segment elevation or depression. Her chest x-ray showed pulmonary fibrosis without change. No new infiltrate. ASSESSMENT AND PLAN: The patient was basically admitted with chest pain that is localized to the sternum, reproducible by palpating the sternum; I am not sure about, she has probably acute on chronic kidney injury. Her creatinine was 1.11 and GFR of 41 mL on December 19. At that time, she had received oral and IV contrast. Today's creatinine is up to 1.6. She is also on multiple nephrotoxic medications that she continues to take including her losartan as well as meloxicam and furosemide. My plan is to hold these medications for now. I will start her on IV fluid. I am not convinced that this is cardiac, seem to be musculoskeletal and ____ it is readily reproducible. I will do 2 more sets of cardiac enzyme. We have already consulted the chief school finance officer. I will start her also on IV fluid. I think she is dehydrated and start her also on something for pain and also add perhaps Lidoderm patches to assist with pain in her sternum. DYLAN BENÍTEZ MD DR: PURA/kulwinder JOB#: [id number] / [id number]
[2018-12-22 20:12] VITALS: BP 96/59
[2018-12-22] MEDS: PATCH REMOVAL. MC SCH (21:00)
[2018-12-22] MEDS: DULoxetine HCL 30 MG CAPSULE.DR PO SCH (21:11)
[2018-12-22] MEDS: FERROUS SULFATE 325 MG TABLET. PO SCH (21:11)
[2018-12-22 23:00] VITALS: BP 88/49
[2018-12-23] VITALS (16 sets, daily range): BP systolic 73–105; BP diastolic 40–54
[2018-12-23] MEDS ORDERED: dilTIAZem 25 MG/5 ML VIAL IVP ONE ×2 (00:39→01:30)
[2018-12-23] MEDS ORDERED: DIGOXIN IV 500 MCG/2 ML AMPUL. ONE (01:10)
--- NOTE | 2018-12-23 01:15 | NUR ---
Pt HR increased to 120s to 170s. Dr. Alcala notified. Orders given for Cardizem 5mg bolus followed by drip. Blood pressure 88/47. 5mg [address] given. Dr. Alcala ordered Digitalis 500 mg; given as ordered. Pt bed positioned in Trendelenburg. Blood pressure increased to 97/53. Will continue to monitor. Pt will be transferred to ICU.
[2018-12-23 01:19] LABS: COLOR,URINE YELLOW
[2018-12-23 01:20] LABS: BACTERIA,URINE MOD /HPF (0-FEW); BILIRUBIN,URINE NEG (NEG); CLARITY,URINE HAZY; GLUCOSE,URINE NEG (NEG); NITRITE,URINE NEG (NEG); UROBILINOGEN,URINE 0.2 mg/dL (0.2 mg/dL)
[2018-12-23 01:21] LABS: AMORPHOUS SEDIMENT,UR PRESENT /HPF; GRANULAR CASTS,URINE FEW /HPF; HYALINE CASTS, URINE FEW /HPF; SQUAMOUS EPITHELIAL CELL,UR MOD /LPF
[2018-12-23 01:22] LABS: WAXY CASTS,URINE OCC /HPF
[2018-12-23] MEDS ORDERED: DIGOXIN IV 500 MCG/2 ML AMPUL. IV ONE (01:30)
[2018-12-23] MEDS ORDERED: dilTIAZem VIAL 125 MG in IV DEXTROSE 5% 100 ML IV PRN (01:30)
[2018-12-23] MEDS: IV NORMAL SALINE 1,000ML 1,000 ML IV SCH ×3 (01:35→21:54)
--- NOTE | 2018-12-23 01:35 | NUR ---
Pt received from [facility] at this time. Tele monitor shows Afib with a rate varying in the 110's-130's. BP 87/54 at this time. Pt received Cardizem 5mg IVP and Digoxin 500mcg IVP prior to arrival to the unit. prior to medications, Heart rate was initially ranging from 140's-170s, improved since medication administration. Holding initiation of cardizem gtt at this time due to low BPS. Pt denies any pain at this time. Positioned to comfort in bed. Will monitor pt closely.
--- NOTE | 2018-12-23 04:00 | NUR ---
At approx 0330 pt converted to NSR/ST, HR-100's. Pts BP remains low see vital records, but pt asymptomatic and states she is feeling better. Will monitor pt closely.
[2018-12-23] MEDS: LEVOTHYROXINE 50 MCG TABLET PO SCH (06:00)
[2018-12-23 06:33] LABS: HEMATOCRIT 28.2 % (36.0-47.0); HEMOGLOBIN 8.8 g/dL (12.0-15.5); RED BLOOD COUNT 3.69 x10^6/uL (3.50-5.40); RED CELL DISTRIBUTION WIDTH 17.9 % (11.5-14.5); WHITE BLOOD COUNT 9.9 x10^3/uL (4.0-11.0)
[2018-12-23 06:43] LABS: ALBUMIN 1.9 g/dL (3.4-5.0); ALBUMIN/GLOBULIN RATIO 0.4 (1.0-1.7); CALCIUM 8.1 mg/dL (8.5-10.1); CREATININE 1.2 mg/dL (0.6-1.0); GFR 42.6; POTASSIUM 3.9 mmol/L (3.5-5.1); TOTAL BILIRUBIN 0.3 mg/dL (0.2-1.0); TOTAL PROTEIN 6.2 g/dL (6.4-8.2)
[2018-12-23] MEDS: LIDOCAINE (700MG/PATCH) PATCH. TD SCH (08:35)
[2018-12-23] MEDS: CHOLECALCIFEROL (VITAMIN D3) 1,000 UNIT TABLET PO SCH (08:35)
[2018-12-23] MEDS: FERROUS SULFATE 325 MG TABLET. PO SCH ×2 (08:35→13:16)
--- NOTE | 2018-12-23 08:43 | NUR ---
NURSING NOTE CONSULT CARDIOLOGY CONSULT CALLED TO ROSA MARIA PRUETT AT 0840. MYRIAM MUSA
[2018-12-23] MEDS: HYDROXYCHLOROQUINE 200 MG TABLET PO SCH (09:00)
[2018-12-23] MEDS ORDERED: IRON SUCROSE COMPLEX 200 MG in IV NORMAL SALINE 100ML 100 ML IV ONE ×2 (12:00→21:00)
--- NOTE | 2018-12-23 15:42 | CARD ---
MR#: [id number] Date of Study: 12/23/2018 Ordering Physician: DYLAN BENÍTEZ, Referring Physician: Yvette ESPINOSA: Valerie Evans RDCS APPROVED REPORT EXAM: Two-dimensional and M-mode echocardiogram with Doppler and color Doppler. Other Information Quality : Good INDICATION Atrial Fibrillation with RVR 2D DIMENSIONS RVDd2.5 (2.9-3.5cm)Left Atrium(2D)3.0 (1.6-4.0cm) IVSd0.7 (0.7-1.1cm)Aortic Root(2D)2.4 (2.0-3.7cm) LVDd3.5 (3.9-5.9cm)PWd0.7 (0.7-1.1cm) LVDs2.1 (2.5-4.0cm)FS (%) 30.0 % SV36.8 mlLVEF(%)60.0 (>50%) Aortic Valve AoV Peak Abhijeet.127.3cm/sAoV VTI21.4cm AO Peak GR.6.5mmHgAO Mean GR.4mmHg AMBER (VTI)1.80cm2 Mitral Valve MV E Ndwrjibs570.7cm/sMV DECEL MQES301wu MV A Cprcwmow27.4cm/sE/A Ratio1.1 Tricuspid Valve TR P. Xansirrh273ly/sRAP [id number] TR Peak Gr.14ceZzVXJC01iaNi LEFT VENTRICLE The left ventricle is normal size. There is normal left ventricular wall thickness. The left ventricu lar systolic function is normal and the ejection fraction is within normal range. The Ejection Fracti on is 55-60%. There is normal LV segmental wall motion. Transmitral Doppler flow pattern is Grade I-a bnormal relaxation pattern. RIGHT VENTRICLE The right ventricle is normal size. The right ventricular systolic function is normal. ATRIA The left atrium size is normal. The right atrium size is normal. The interatrial septum is intact wit h no evidence for an atrial septal defect or patent foramen ovale as noted on 2-D or Doppler imaging. AORTIC VALVE The aortic valve is calcified but opens well. Doppler and Color Flow revealed trace aortic regurgitat ion. There is no significant aortic valvular stenosis. MITRAL VALVE The mitral valve is calcified but opens well. Mitral annular calcification is mild to moderate. There is no evidence of mitral valve prolapse. There is no mitral valve stenosis. Doppler and Color-flow r evealed trace to mild mitral regurgitation. TRICUSPID VALVE The tricuspid valve is normal in structure and function. Doppler and Color Flow revealed mild tricusp id regurgitation. The PA pressure was estimated at 35 mmHg. There is no tricuspid valve stenosis. PULMONIC VALVE The pulmonic valve is not well visualized. Doppler and Color Flow revealed no pulmonic valvular regur gitation. There is no pulmonic valvular stenosis. GREAT VESSELS The aortic root is normal in size. The ascending aorta is normal in size. The IVC is normal in size a nd collapses >50% with inspiration. PERICARDIAL EFFUSION There is no evidence of significant pericardial effusion. Critical Notification Critical Value: No <Conclusion> The left ventricle is normal size. The left ventricular systolic function is normal and the ejection fraction is within normal range. The Ejection Fraction is 55-60%. There is no significant aortic valvular stenosis. Doppler and Color Flow revealed trace aortic regurgitation. Doppler and Color-flow revealed trace to mild mitral regurgitation. Doppler and Color Flow revealed mild tricuspid regurgitation. The PA pressure was estimated at 35 mmHg. Signed by : Hakan Hanley MD Electronically Approved : 12/23/2018 15:42:20
--- NOTE | 2018-12-23 15:57 | NUR ---
Patient doing well today, denies having chest pain so far this shift. States she is feeling much better but is still very tired and weak. PT/OT ordered. Dr Alcala here to see patient, order for 250cc bolus due to bp being on the lower side. Also on Venofer but will be started tonight and will have Iron pill held. Awaiting for cardiology to see patient, echo pending.
--- NOTE | 2018-12-23 17:30 | PDOC2 ---
CONSULT Date of Admission DATE: 12/23/18 TIME: 17:24 Reason for Consult: Chest pain Referring Physician: Dr. Alcala Chief Complaint Chest pain Source: Chart review, Patient Problem List Problems Medical Problems: (1) Chest pain Status: Acute (2) CHF (congestive heart failure) Status: Acute (3) Elevated serum creatinine Status: Acute History of Present Illness The patient is an 88-year-old female who presented to the emergency room with e pisodes of chest discomfort. The patient's discomfort increased with deep inspiration. It is also reproducible by palpation of the chest. The patient has a history of idiopathic pulmonary fibrosis. EKG showed no significant changes. However overnight the patient went into atrial fibrillation. She was originally treated with cardizem which dropped her BP. She was then treated with 0.5 mg of IV digoxin and converted to sinus several hours after that. Chest x-ray showed no significant changes. An echocardiogram today shows an ejection fraction of 55-60% with mild mitral regurgitation and mild tricuspid regurgitation with a PA by mouth 35 mmHg. The patient's history is significant for hypertension and hyperlipidemia. She is followed for anemia through [facility]. BNP is elevated at 2332. Cardiovascular: HTN, hyperipidemia Pulmonary: Other Heme/Onc: Other (aggressive anemia) Past Surgical History: Other (left ankle fracture repair) Family History: Coronary Artery Disease, Diabetes Smoke: No ALCOHOL: none Current Medications Current Medications Furosemide (Lasix) 20 mg 1X ONCE IVP Last administered on 12/22/18at 09:41; Start 12/22/18 at 09:30; Stop 12/22/18 at 09:31; Status DC Sodium Chloride 500 ml @ 0 mls/hr 1X ONCE IV Last administered on 12/22/18at 09:39; Start 12/22/18 at 09:45; Stop 12/22/18 at 09:46; Status DC Ondansetron HCl (Zofran) 4 mg PRN Q4HRS PRN IV NAUSEA/VOMITING; Start 12/22/18 at 09:45; Stop 12/23/18 at 09:44; Status DC Fentanyl Citrate (Fentanyl 2ml Vial) 50 mcg PRN Q2HR PRN IV PAIN; Start 12/22/18 at 09:45; Stop 12/23/18 at 09:44; Status DC Vitamin D (Vitamin D3) 1,000 unit DAILY PO Last administered on 12/23/18at 08:35; Start 12/23/18 at 09:00 Ferrous Sulfate (Feosol) 325 mg BID PO Last administered on 12/23/18 08:35; Start 12/22/18 at 21:00 Prednisolone Acetate (Pred Forte) 1 drop PRN QID PRN OU DRY EYE; Start 12/22/18 at 12:15 Duloxetine HCl (Cymbalta) 30 mg QHS PO Last administered on 12/22/18at 21:11; Start 12/22/18 at 21:00 Hydroxychloroquine Sulfate (Plaquenil) 200 mg DAILY PO ; Start 12/23/18 at 09:00 Levothyroxine Sodium (Synthroid) 50 mcg DAILY06 PO Last administered on 12/23/18at 06:00; Start 12/23/18 at 06:00 Sodium Chloride 1,000 ml @ 75 mls/hr [id number] IV Last administered on 12/22/18at 12:15; Start 12/22/18 at 12:15 Lidocaine (Lidoderm) 1 patch DAILY TD Last administered on 12/23/18 08:35; Start 12/23/18 at 09:00 Miscellaneous (Lidoderm Patch Removal) 1 ea QHS MC Last administered on 12/22/18 21:00; Start 12/22/18 at 21:00 Diltiazem HCl (Cardizem Iv Push) 25 mg STK-MED ONCE IVP ; Start 12/23/18 at 00:39; Stop 12/23/18 at 00:40; Status DC Digoxin (Lanoxin) 500 mcg STK-MED ONCE .ROUTE ; Start 12/23/18 at 01:10; Stop 12/23/18 at 01:11; Status DC Digoxin (Lanoxin) 500 mcg 1X ONCE IV Last administered on 12/23/18at 01:24; Start 12/23/18 at 01:30; Stop 12/23/18 at 01:31; Status DC Diltiazem HCl (Cardizem Iv Push) 5 mg 1X ONCE IVP Last administered on 12/23/18at 01:25; Start 12/23/18 at 01:30; Stop 12/23/18 at 01:31; Status DC Diltiazem HCl 125 mg/Dextrose 125 ml @ 5 mls/hr CONT PRN IV SEE I/O RECORD; Start 12/23/18 at 01:30 Iron Sucrose 200 mg/Sodium Chloride 110 ml @ 110 mls/hr 1X ONCE IV ; Start 12/23/18 at 12:00; Stop 12/23/18 at 12:59; Status DC Iron Sucrose 200 mg/Sodium Chloride 110 ml @ 110 mls/hr 1X ONCE IV ; Start 12/23/18 at 21:00; Stop 12/23/18 at 21:59 Active Scripts Active Reported Lasix (Furosemide) 20 Mg Tablet 20 Mg PO BID Cymbalta (Duloxetine Hcl) 30 Mg Capsule.dr 1 Cap PO HS Ferrous Sulfate 325 Mg Tablet 1 Tab PO BID Hydroxychloroquine Sulfate 200 Mg Tablet 1 Tab PO DAILY Vitamin D3 (Cholecalciferol (Vitamin D3)) 1,000 Unit Tablet 1 Tab PO DAILY Prednisolone Acetate 5 Ml Drops.susp 1 Drop EACHEYE QID PRN Losartan Potassium 50 Mg Tablet 50 Mg PO DAILY Meloxicam 15 Mg Tablet 15 Mg PO DAILY Levothyroxine Sodium 50 Mcg Tablet 1 Tab PO DAILY06 Allergies: Coded Allergies: No Known Drug Allergies (Unverified , 08/12/18) Respiratory: YES: SOB with excertion Cardiovascular: yes: Chest Pain General: mild distress HEENT: Atraumatic Lungs: Other (highly decreased breath sounds) Heart: Regular rate Abdomen: Normal bowel sounds VITALS Vital Signs Date Time Temp Pulse Resp B/P (MAP) Pulse Ox O2 Delivery O2 Flow Rate FiO2 12/23/18 15:55 96 21 97/42 (60) 95 Room Air 12/23/18 11:32 97.2 12/23/18 05:36 2.0 Labs Laboratory Tests Test 12/22/18 08:41 12/22/18 12:35 12/22/18 15:38 12/22/18 23:55 White Blood Count 9.8 x10^3/uL (4.0-11.0) Red Blood Count 3.88 x10^6/uL (3.50-5.40) Hemoglobin 9.1 g/dL (12.0-15.5) Hematocrit 29.4 % (36.0-47.0) Mean Corpuscular Volume 76 fL (79-100) Mean Corpuscular Hemoglobin 24 pg (25-35) Mean Corpuscular Hemoglobin Concent 31 g/dL (31-37) Red Cell Distribution Width 18.0 % (11.5-14.5) Platelet Count 527 x10^3/uL (140-400) Neutrophils (%) (Auto) 78 % (31-73) Lymphocytes (%) (Auto) 12 % (24-48) Monocytes (%) (Auto) 9 % (0-9) Eosinophils (%) (Auto) 0 % (0-3) Basophils (%) (Auto) 1 % (0-3) Neutrophils # (Auto) 7.6 x10^3uL (1.8-7.7) Lymphocytes # (Auto) 1.2 x10^3/uL (1.0-4.8) Monocytes # (Auto) 0.9 x10^3/uL (0.0-1.1) Eosinophils # (Auto) 0.0 x10^3/uL (0.0-0.7) Basophils # (Auto) 0.1 x10^3/uL (0.0-0.2) Sodium Level 135 mmol/L (136-145) Potassium Level 4.4 mmol/L (3.5-5.1) Chloride Level 98 mmol/L (98-107) Carbon Dioxide Level 27 mmol/L (21-32) Anion Gap 10 (6-14) Blood Urea Nitrogen 33 mg/dL (7-20) Creatinine 1.6 mg/dL (0.6-1.0) Estimated GFR (Cockcroft-Gault) 30.6 BUN/Creatinine Ratio 21 (6-20) Glucose Level 125 mg/dL (70-99) Calcium Level 8.6 mg/dL (8.5-10.1) Total Bilirubin 0.4 mg/dL (0.2-1.0) Aspartate Amino Transf (AST/SGOT) 14 U/L (15-37) Alanine Aminotransferase (ALT/SGPT) 9 U/L (14-59) Alkaline Phosphatase 98 U/L (46-116) Troponin I Quantitative < 0.017 ng/mL (0-0.055) < 0.017 ng/mL (0-0.055) < 0.017 ng/mL (0-0.055) YY-[id number]-Type Natriuretic Peptide 2332 pg/mL (0-449) Total Protein 6.7 g/dL (6.4-8.2) Albumin 2.5 g/dL (3.4-5.0) Albumin/Globulin Ratio 0.6 (1.0-1.7) D-Dimer (Leatha) 2.43 mg/L (0.00-0.50) Urine Collection Type Unknown Urine Color Yellow Urine Clarity Hazy Urine pH 7.0 Urine Specific [place] 1.010 Urine Protein 30 mg/dl (NEG-TRACE) Urine Glucose (UA) Neg mg/dL (NEG) Urine Ketones (Stick) Neg mg/dL (NEG) Urine Blood Small (NEG) Urine Nitrite Neg (NEG) Urine Bilirubin Neg (NEG) Urine Urobilinogen Dipstick 0.2 mg/dL (0.2 mg/dL) Urine Leukocyte Esterase Neg (NEG) Urine RBC 11-20 /HPF (0-2) Urine WBC 11-20 /HPF (0-4) Urine Squamous Epithelial Cells Mod /LPF Urine Amorphous Sediment Present /HPF Urine Bacteria Mod /HPF (0-FEW) Urine Hyaline Casts Few /HPF Urine Granular Casts Few /HPF Urine Waxy Casts Occ /HPF Test 12/23/18 05:35 White Blood Count 9.9 x10^3/uL (4.0-11.0) Red Blood Count 3.69 x10^6/uL (3.50-5.40) Hemoglobin 8.8 g/dL (12.0-15.5) Hematocrit 28.2 % (36.0-47.0) Mean Corpuscular Volume 76 fL (79-100) Mean Corpuscular Hemoglobin 24 pg (25-35) Mean Corpuscular Hemoglobin Concent 31 g/dL (31-37) Red Cell Distribution Width 17.9 % (11.5-14.5) Platelet Count 520 x10^3/uL (140-400) Sodium Level 138 mmol/L (136-145) Potassium Level 3.9 mmol/L (3.5-5.1) Chloride Level 104 mmol/L (98-107) Carbon Dioxide Level 27 mmol/L (21-32) Anion Gap 7 (6-14) Blood Urea Nitrogen 23 mg/dL (7-20) Creatinine 1.2 mg/dL (0.6-1.0) Estimated GFR (Cockcroft-Gault) 42.6 BUN/Creatinine Ratio 19 (6-20) Glucose Level 104 mg/dL (70-99) Calcium Level 8.1 mg/dL (8.5-10.1) Iron Level 50 ug/dL (50-170) Total Iron Binding Capacity 173 ug/dL (250-450) Iron Saturation 29 % (15-34) Ferritin 931 ng/mL (8-252) Total Bilirubin 0.3 mg/dL (0.2-1.0) Aspartate Amino Transf (AST/SGOT) 13 U/L (15-37) Alanine Aminotransferase (ALT/SGPT) 8 U/L (14-59) Alkaline Phosphatase 79 U/L (46-116) Total Protein 6.2 g/dL (6.4-8.2) Albumin 1.9 g/dL (3.4-5.0) Albumin/Globulin Ratio 0.4 (1.0-1.7) Images Chest x-ray shows pulmonary fibrosis. No acute changes Assessment/Plan 1. Chest pain. As noted above pain is reproducible. EKG shows no ischemic changes. Troponins are normal. Echocardiogram shows normal LV systolic function. We'll continue medical treatment. 2. Diastolic heart failure. Normal LV systolic function but elevated BNP at 2332. Would continue mild diuresis. Continue to monitor elevated creatinine. 3. Atrial fibrillation. Treatment as above and has converted to sinus. Would continue present treatment. Due to renal insufficiency and IPF she is a borderline candidate for digoxin and beta blockers. We may need to start cardizem po tomorrow but will initially monitor overnight. Not a good candidate for long-term anticoagulation at this time due to ongoing work up for anemia. 4. Anemia. Hemoglobin and hematocrit of 8.8 and 28.2. Followed by [facility] hematology. 5. Chronic renal insufficiency. Monitoring creatinine. Thank you for allowing us to participate in the care of your patient. LEANNE RAYMOND MD Dec 23, 2018 17:30
[2018-12-23] MEDS: PATCH REMOVAL. MC SCH (21:00)
[2018-12-23] MEDS: DULoxetine HCL 30 MG CAPSULE.DR PO SCH (21:54)
[2018-12-24 03:00] VITALS: BP 109/50
--- NOTE | 2018-12-24 04:22 | PN ---
DATE: 12/23/2018 SUBJECTIVE: The patient is resting, slightly propped up in bed, in no apparent distress. Her chest pain is much improved. Unfortunately, she went into atrial fibrillation with rapid ventricular response, started on Cardizem drip that caused marked hypertension. She did receive IV fluid and we treated her with IV digoxin and she is converted to sinus rhythm and she is now resting slightly propped up in bed, in no apparent distress, pale, but no jaundice, cyanosis, or thyromegaly. No jugular venous distension. No limb edema. OBJECTIVE: VITAL SIGNS: Her heart rate is 100, blood pressure was 83/54, temperature was 98, respiratory rate was 22 and oxygen saturation was 95% on room air. HEAD, EYES, EARS, NOSE AND THROAT: Normocephalic, atraumatic. NECK: Supple. HEART: Showed normal first and second heart sounds with no gallop, rub or murmur. CHEST: Clear to auscultation. No crepitation or rhonchi. ABDOMEN: Scaphoid, soft, nontender. NEUROLOGIC: She is awake, alert, responding appropriately. All cranial nerves intact. She moves extremities without difficulty. She ambulates without assistance or assistive devices. Her intake over the last 24 hours was incompletely recorded. LABORATORY DATA: Her lab work this morning showed a white cell count 9900, hemoglobin 8.8, hematocrit 28, MCV 76 and platelet count of 120,000. Her chemistry showed a serum sodium 138, potassium 3.9, chloride 104, bicarbonate 27, anion gap of 7, BUN 23, creatinine 1.2, estimated GFR was 42 mL per minute. Her glucose was 104, calcium was 8.1. Total protein was 6.2, albumin was 1.9. ASSESSMENT: 1. Chest pain. She has 3 sets of cardiac enzymes that ruled out myocardial infarction. There is marked tenderness of her sternum for which we started her on Lidoderm patch. 2. Acute on chronic kidney injury. Her creatinine has risen from 1 to 1.6, probably multifactorial including contrast-induced nephropathy. She has had CT scan of the chest with oral and IV contrast. On 12/19/2018, she was continued also on losartan, meloxicam and Lasix. Kidney function is improving, in fact that her creatinine down to 1.2. 3. New onset atrial fibrillation with rapid ventricular response. She has received Cardizem that caused marked hypotension; however, she was given IV bolus fluid and 500 mcg digoxin IV and that has controlled her heart rate. In fact, she has converted to sinus rhythm this morning. Other medical problems include hypertension, hyperlipidemia, hypothyroidism, glaucoma and ____ pulmonary fibrosis. We have consulted the Cardiology team and an echocardiogram was ordered. Her blood pressure continues to be on the low side, we will give her a bolus of 250 mL normal saline. PLAN: Continue with IV fluid and we will repeat all her lab work. Her MCV was low at 76 indicating she probably has iron deficiency anemia. She is already on meloxicam that might be the reason, I will check her serum iron, TIBC, and serum ferritin. DYLAN BENÍTEZ MD DR: PURA/kulwinder JOB#: [id number] / [id number]
[2018-12-24] MEDS: LEVOTHYROXINE 50 MCG TABLET PO SCH (05:31)
[2018-12-24 06:00] VITALS: BP 96/47
[2018-12-24 06:16] LABS: HEMATOCRIT 28.1 % (36.0-47.0); HEMOGLOBIN 8.8 g/dL (12.0-15.5); RED BLOOD COUNT 3.66 x10^6/uL (3.50-5.40); RED CELL DISTRIBUTION WIDTH 18.3 % (11.5-14.5); WHITE BLOOD COUNT 11.4 x10^3/uL (4.0-11.0)
[2018-12-24 06:21] LABS: CALCIUM 8.3 mg/dL (8.5-10.1); GFR 52.6; POTASSIUM 3.7 mmol/L (3.5-5.1)
[2018-12-24] MEDS: HYDROXYCHLOROQUINE 200 MG TABLET PO SCH (07:46)
[2018-12-24] MEDS: FERROUS SULFATE 325 MG TABLET. PO SCH ×2 (07:46→20:36)
[2018-12-24] MEDS: LIDOCAINE (700MG/PATCH) PATCH. TD SCH (07:47)
[2018-12-24] MEDS: CHOLECALCIFEROL (VITAMIN D3) 1,000 UNIT TABLET PO SCH (07:48)
[2018-12-24 11:19] VITALS: BP 95/61
[2018-12-24] MEDS ORDERED: IRON SUCROSE COMPLEX 500 MG in IV NORMAL SALINE 250ML 250 ML IV ONE (14:00)
[2018-12-24 15:45] VITALS: BP 98/61
[2018-12-24] MEDS: DRONABINOL 2.5 MG CAPSULE PO SCH (16:37)
[2018-12-24] MEDS: IV NORMAL SALINE 1,000ML 1,000 ML IV SCH (17:35)
[2018-12-24 19:10] VITALS: BP 104/58
[2018-12-24] MEDS: PATCH REMOVAL. MC SCH (20:36)
[2018-12-24] MEDS: DULoxetine HCL 30 MG CAPSULE.DR PO SCH (20:36)
[2018-12-24 23:25] VITALS: BP 98/61
--- NOTE | 2018-12-25 04:28 | PN ---
DATE: PROGRESS NOTE SUBJECTIVE: The patient is resting slightly propped up in bed, in no apparent respiratory distress. She continued to complain of chest pain. She also complained of anorexia and poor appetite. She remained in sinus rhythm; however, Cardizem has caused marked hypertension and apparently she is a borderline candidate for digoxin and beta-blockers. She is not obviously a candidate for anticoagulation given the investigation of anemia. The physical therapist said that she was able to walk, but is unsteady and recommended more physical therapy. So, the patient will be kept for another 24 hours. PHYSICAL EXAMINATION: GENERAL: When I examined her this afternoon, she looked pale, seemed cachectic, but no jaundice, cyanosis, or thyromegaly. No jugular venous distension. No limb edema. VITAL SIGNS: Her heart rate was 97, blood pressure was 95/61, temperature was 97.8, respiratory rate was 17, and oxygen saturation was 96%. HEAD, EYES, EARS, NOSE AND THROAT: Normocephalic, atraumatic. NECK: Supple. HEART: Showed normal first and second heart sounds with no gallop, rub or murmur. CHEST: Clear to auscultation. No crepitation or rhonchi. ABDOMEN: Scaphoid, soft, nontender. NEUROLOGIC: She was awake, alert, responding appropriately. All cranial nerves intact. She moves extremities without difficulty. She is able to walk, but somewhat unsteady. Her intake was 650 and output was 200. LABORATORY DATA: Her lab work this morning showed a white cell count of 11,400, hemoglobin 8.8, hematocrit 28, MCV 77 and platelet count of 526,000. Her chemistry showed a serum sodium 137, potassium 3.7, chloride 105, bicarbonate 25, anion gap of 7, BUN 16, creatinine 1. Estimated GFR was 52 mL per minute. She had a glucose of 115, calcium was 8.3. Serum iron 50, TIBC was low at 173, iron saturation was 29, serum ferritin was 931 mcg/mL. ASSESSMENT AND PLAN: 1. Chest pain for which she had 3 sets of cardiac enzymes that ruled out myocardial infarction. Chest pain is reproducible. EKG showed no ischemic changes and echocardiogram showed that she has normal left ventricular systolic function, diastolic congestive heart failure. The patient has normal left ventricular systolic function, but elevated BNP. 2. Atrial fibrillation. The patient was converted to sinus rhythm. 3. Anemia. The hemoglobin is 8.8, hematocrit 28. 4. Chronic renal insufficiency, stable. In fact, she has probably contrast-induced nephropathy that has resolved. 5. Anorexia and poor oral intake for which we started her on Marinol. I will continue with IV Venofer. Meanwhile, continue with PT, OT and hopefully discharge her back home tomorrow. DYLAN BENÍTZE MD DR: PURA/kulwinder JOB#: [id number] / [id number]
[2018-12-25] MEDS: IV NORMAL SALINE 1,000ML 1,000 ML IV SCH (05:55)
[2018-12-25] MEDS: LEVOTHYROXINE 50 MCG TABLET PO SCH (05:55)
[2018-12-25 06:10] VITALS: BP 116/71
[2018-12-25 06:35] LABS: CALCIUM 8.4 mg/dL (8.5-10.1); CREATININE 0.9 mg/dL (0.6-1.0); GFR 59.4; POTASSIUM 3.9 mmol/L (3.5-5.1)
--- NOTE | 2018-12-25 08:30 | PDOC ---
SEBLE CHRISTIE [employer]ER 12/25/18 0830: CARDIO Progress Notes Date & Time Date of Service DATE: 12/25/18 TIME: 08:28 Time of Evaluation 08:28 Subjective Notes feeling better. 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 Intake and Output 12/25/18 06:59 Intake Total 1997 ml Output Total 300 ml Balance 1697 ml Intake Oral 1200 ml IV Total 797 ml Output Urine Total 300 ml # Voids 2 Laboratory Labs Laboratory Tests Test 12/23/18 09:00 12/24/18 05:35 12/25/18 05:59 Nasal Screen MRSA (PCR) Negative (Negative) White Blood Count 11.4 x10^3/uL (4.0-11.0) Red Blood Count 3.66 x10^6/uL (3.50-5.40) Hemoglobin 8.8 g/dL (12.0-15.5) Hematocrit 28.1 % (36.0-47.0) Mean Corpuscular Volume 77 fL (79-100) Mean Corpuscular Hemoglobin 24 pg (25-35) Mean Corpuscular Hemoglobin Concent 31 g/dL (31-37) Red Cell Distribution Width 18.3 % (11.5-14.5) Platelet Count 526 x10^3/uL (140-400) Sodium Level 137 mmol/L (136-145) 135 mmol/L (136-145) Potassium Level 3.7 mmol/L (3.5-5.1) 3.9 mmol/L (3.5-5.1) Chloride Level 105 mmol/L (98-107) 102 mmol/L (98-107) Carbon Dioxide Level 25 mmol/L (21-32) 26 mmol/L (21-32) Anion Gap 7 (6-14) 7 (6-14) Blood Urea Nitrogen 16 mg/dL (7-20) 12 mg/dL (7-20) Creatinine 1.0 mg/dL (0.6-1.0) 0.9 mg/dL (0.6-1.0) Estimated GFR (Cockcroft-Gault) 52.6 59.4 Glucose Level 115 mg/dL (70-99) 112 mg/dL (70-99) Calcium Level 8.3 mg/dL (8.5-10.1) 8.4 mg/dL (8.5-10.1) Physical Exams HEENT: Neck Supple W Full Motion Chest: Symmetric Lungs: Clear to Auscultation Heart: S1S2, RRR Abdomen: Soft N/T Extremities: No Edema Neurology: alert, follow commands Assessment Assessment 1. Chest pain, atypical. AMI ruled out. EKG without acute changes. Reproducible. Echo with preserved with LV systolic function 2. Mild acute on chronic diastolic HF; clinically compensated 3. AFIB; converted back to SR and has been maintaining Cardizem gtt initiated, but held due to hypotension following Cardizem IVP. Poor candidate for OAC due to anemia. 4. Anemia; hgb stable at 8.8 5. KIMBERLY on CKDl improved. Recommendations Will add low-dose metoprolol for rate control Add ASA for stroke prevention TSH level Consider outpatient event monitor LINDA MOTLEY MD 12/25/18 1541: CARDIO Progress Notes Plan Plan Pt. seen and examined. Agree with above LAY OUT TECHNICIAN note. SEBLE CHRISTIE APRN Dec 25, 2018 08:30 LINDA MOTLEY MD Dec 25, 2018 15:41
[2018-12-25] MEDS ORDERED: ASPIRIN ENTERIC COATED 81 MG TABLET.DR. PO SCH (09:00)
[2018-12-25] MEDS: METOPROLOL TART IMMED RELEASE 25 MG TABLET PO SCH ×2 (09:37→20:00)
[2018-12-25] MEDS: CHOLECALCIFEROL (VITAMIN D3) 1,000 UNIT TABLET PO SCH (09:37)
[2018-12-25] MEDS: FERROUS SULFATE 325 MG TABLET. PO SCH ×2 (09:37→20:00)
[2018-12-25] MEDS: HYDROXYCHLOROQUINE 200 MG TABLET PO SCH (09:37)
[2018-12-25] MEDS: BENZONATATE PO SCH ×2 (10:38→20:01)
[2018-12-25] MEDS ORDERED: BENZ-8 PO (10:40)
[2018-12-25 11:50] VITALS: BP 96/57
[2018-12-25] MEDS ORDERED: IRON SUCROSE COMPLEX 200 MG in IV NORMAL SALINE 100ML 100 ML IV ONE (12:00)
[2018-12-25] MEDS: LIDOCAINE (700MG/PATCH) PATCH. TD SCH (12:00)
[2018-12-25] MEDS: DRONABINOL 2.5 MG CAPSULE PO SCH ×2 (12:35→16:46)
[2018-12-25 15:28] VITALS: BP 93/52
[2018-12-25 19:39] VITALS: BP 117/66
[2018-12-25] MEDS: PATCH REMOVAL. MC SCH (19:40)
--- NOTE | 2018-12-25 19:58 | PN ---
DATE: SUBJECTIVE: The patient is sitting in her chair comfortably in no apparent distress. On questioning her, she continued to complain of being weak, tired. She did not feel that she is ready to go home today and she was seen by the credit representative and was started on a low dose metoprolol 12.5 mg twice a day, although her blood pressure is very soft. PHYSICAL EXAMINATION: GENERAL: When I examined her this morning, she was pale. No jaundice, cyanosis or thyromegaly. No jugular venous distention. No limb edema. VITAL SIGNS: Her heart rate was 104, blood pressure was 99/60, temperature was 97.5, respiratory rate was 20 and oxygen saturation was 96% on room air. HEAD, EYES, EARS, NOSE AND THROAT: Showed normocephalic, atraumatic. NECK: Supple. HEART: Showed normal first and second heart sounds with no gallop, rub or murmur. CHEST: Clear to auscultation. No crepitation or rhonchi. ABDOMEN: Scaphoid, soft, nontender. NEUROLOGIC: She is awake, alert, responding appropriately. All cranial nerves intact. She moves extremities without difficulty. She ambulates with a walker. Her intake over the last 24 hours was 810, output was incompletely recorded. LABORATORY DATA: As of yesterday, her white cell count was 11,400, hemoglobin 8.8, hematocrit 28, MCV 77, platelet count 526,000. Her chemistry showed a serum sodium 135, potassium 3.9, chloride 102, bicarbonate 26, anion gap of 7, BUN 12, creatinine was 0.9, estimated GFR was 59 mL per minute. Her glucose was 112, calcium was 8.4. ASSESSMENT AND PLAN: 1. Chest pain for which she had 3 sets of cardiac enzymes that ruled out myocardial infarction, chest pain is reproducible. EKG showed no ischemic changes. An echocardiogram showed she has normal left ventricular systolic function. 2. Diastolic congestive heart failure. The patient has normal left ventricular systolic function, but elevated BNP. 3. Atrial fibrillation, rate controlled. 4. Anemia with hemoglobin of 8.8, hematocrit 28. She has microcytic hypochromic anemia. 5. Acute kidney injury, likely due to contrast-induced nephropathy, has resolved. In fact, her serum creatinine came down from 1.6-0.9. The patient was seen by the Cardiology team and was started on a low dose metoprolol to control the heart rate. She is not a candidate for anticoagulation. 6. She has anorexia and poor oral intake for which we started her on Marinol. 7. Generalized debility and weakness for which we will continue with PT/OT. I am hoping to discharge her back home tomorrow. DYLAN BENÍTEZ MD DR: PURA/kulwinder JOB#: [id number] / [id number]
[2018-12-25] MEDS: DULoxetine HCL 30 MG CAPSULE.DR PO SCH (20:00)
[2018-12-25] MEDS ORDERED: ACETAMINOPHEN 325 MG TABLET PO ONE (22:28)
[2018-12-25] MEDS ORDERED: ACETAMINOPHEN 325 MG TABLET PO PRN (22:30)
[2018-12-25 22:38] VITALS: BP 95/57
[2018-12-26] MEDS: LEVOTHYROXINE 50 MCG TABLET PO SCH (05:00)
[2018-12-26 05:22] VITALS: BP 90/54
[2018-12-26 06:17] LABS: CALCIUM 8.2 mg/dL (8.5-10.1); CREATININE 1.1 mg/dL (0.6-1.0); GFR 47.1; POTASSIUM 3.7 mmol/L (3.5-5.1)
[2018-12-26 06:52] LABS: HEMATOCRIT 31.4 % (36.0-47.0); HEMOGLOBIN 9.6 g/dL (12.0-15.5); RED BLOOD COUNT 3.91 x10^6/uL (3.50-5.40); RED CELL DISTRIBUTION WIDTH 18.9 % (11.5-14.5); WHITE BLOOD COUNT 15.4 x10^3/uL (4.0-11.0)
[2018-12-26 07:00] VITALS: BP 117/66
[2018-12-26] MEDS: METOPROLOL TART IMMED RELEASE 25 MG TABLET PO SCH (09:00)
[2018-12-26] MEDS: LIDOCAINE (700MG/PATCH) PATCH. TD SCH (09:00)
[2018-12-26] MEDS: BENZONATATE PO SCH (09:04)
[2018-12-26] MEDS: FERROUS SULFATE 325 MG TABLET. PO SCH (09:05)
[2018-12-26] MEDS: CHOLECALCIFEROL (VITAMIN D3) 1,000 UNIT TABLET PO SCH (09:05)
[2018-12-26] MEDS: HYDROXYCHLOROQUINE 200 MG TABLET PO SCH (09:05)
[2018-12-26 09:10] VITALS: BP 95/58
--- NOTE | 2018-12-26 11:18 | RAD ---
CHEST PA LATERAL History: Cough Comparison: December 22, 2018; older exam 07/16/2018 Findings: 2 views of the chest are submitted. There is interstitial opacity at lung bases bilaterally as seen on older exam. There is some interspersed patchy airspace opacity at lung bases bilaterally somewhat greater than previous exams. There is no pneumothorax. There is no significant dependent pleural fluid. Cardiac silhouette is stable. There is atherosclerotic calcification of the somewhat tortuous thoracic aorta. There is multilevel thoracic and lumbar degenerative disc disease. Impression: 1. There is degree of chronic interstitial lung disease as seen on previous exam although somewhat increased bibasilar opacity likely superimposed atelectasis and/or infiltrate. Electronically signed by: Abhishek Hardin MD (12/26/2018 11:15 AM) [id number]
[2018-12-26 11:22] VITALS: BP 94/57
[2018-12-26] MEDS: DRONABINOL 2.5 MG CAPSULE PO SCH ×2 (12:08→16:58)
--- NOTE | 2018-12-26 13:30 | NUR ---
Dr. Alcala rounded on pt, ordered Digoxin 500mcg IVP to replace PO Metoprolol which will be dc'd d/t pt's BPs. Dr. Alcala also ordered 6 minute walk to determine whether pt has need for O2 after discharge. WCTM. Libby Kimbrough RN
[2018-12-26] MEDS ORDERED: DIGOXIN IV 500 MCG/2 ML AMPUL. IV ONE (13:45)
[2018-12-26 14:03] VITALS: BP 91/51
[2018-12-26] MEDS ORDERED: DIGO125T17 PO (16:21)
[2018-12-26 17:08] VITALS: BP 105/64
--- NOTE | 2018-12-26 17:28 | NUR ---
Pt discharged to home to be followed by home health services. PIV removed and all belongings verified with pt, to include clothing and Tessalon Perles in the med room. Pt not in pain at discharge, 6 minute walk completed and RT determined no need for supplemental oxygen, VSS. Dr. Alcala wrote orders for Digoxin 0.125mcg PO ONCE daily and Marinol 2.5mg PO BID. Prescriptions given to pt, cardiac diet and high iron diet reviewed with pt, instructions provided in Maldivian and Yakut. This RN escorted pt to [facility] driven by fellow taty in a WC. Libby Kimbrough RN
--- NOTE | 2018-12-27 02:00 | DS ---
DATE OF DISCHARGE: 12/26/2018 HISTORY OF PRESENT ILLNESS: The patient is an 88-year-old female patient who was admitted with a complaint of chest pain that is atypical, reproducible, mostly central, marked tenderness in her sternum. She has had 3 sets of cardiac enzymes that ruled out myocardial infarction. She did have an echocardiogram done, which showed that her left ventricular size is normal. Left ventricular systolic function is normal, ejection fraction is within normal range. Ejection fraction is 55-60%. There is no significant aortic valvular stenosis. Doppler and color flow showed trace aortic regurgitation, trace to mild mitral regurgitation, mild tricuspid regurgitation and her pulmonary artery pressure was estimated at 35 mmHg. While in the hospital, she went into atrial fibrillation with rapid ventricular response for which we tried initially Cardizem drip but the patient became markedly hypotensive and required multiple boluses of IV fluid. We tried also metoprolol 25 mg twice a day, however, the patient continued to be hypotensive. In fact, her metoprolol was cut down to 12.5 mg twice a day and the patient continued to be hypotensive with borderline blood pressure and therefore she was given a loading dose of digoxin and was discharged back home on a small dose of digoxin 125 mcg once a day. She also has marked anorexia and poor appetite. We started her on Marinol 2.5 mg twice a day and was discharged home to continue to follow up with her primary care physician and we did also a 6-minute walk as she is known to have idiopathic pulmonary fibrosis and she did not require any oxygen. PHYSICAL EXAMINATION: GENERAL: On examining her, before on the day of discharge, she was pale, somewhat cachectic, but no jaundice, cyanosis or thyromegaly. No jugular venous distention. No limb edema. VITAL SIGNS: Her heart rate was 100, blood pressure was 91/51, temperature was 98, respiratory rate was 16, and oxygen saturation was 96%. HEAD, EYES, EARS, NOSE AND THROAT: Showed normocephalic, atraumatic. NECK: Supple. HEART: Showed normal first and second heart sounds with no gallop, rub or murmur. CHEST: Clear to auscultation. No crepitation or rhonchi. ABDOMEN: Distended, soft, nontender. No guarding or rigidity. No organomegaly. All hernial orifice intact. Bowel sounds normal. NEUROLOGIC: She was awake, alert, responding appropriately. She was able to ambulate with a walker. LABORATORY DATA: Her lab work this morning showed a serum sodium 134, potassium 3.7, chloride 100, bicarbonate 27, anion gap of 7, BUN 16, creatinine 1.1, estimated GFR was 47 mL per minute. Her glucose was 100, calcium was 8.2. Her TSH was 4.44. She has microcytic hypochromic anemia and she has received a total of 1000 mg of Venofer intravenously. DISCHARGE MEDICATIONS: She was discharged back home to continue on Tylenol 650 mg every 4 hours as needed, ergocalciferol 1000 international unit once a day, dronabinol 2.5 mg twice a day, duloxetine for Cymbalta 30 mg at bedtime, ferrous sulfate 325 mg twice a day, hydroxychloroquine 200 mg daily. She was discharged also on levothyroxine 50 mcg once a day. Lidoderm patch 1 applied topically once a day on for 12 hours and off for 12 hours. She was also discharged on digoxin 125 mcg once a day. FINAL DISCHARGE DIAGNOSES: 1. Chest pain, atypical. She has 3 sets of cardiac enzymes that ruled out myocardial infarction. The pain is musculoskeletal as it is easily reducible. Her echocardiogram showed that has normal left ventricular systolic function. 2. Atrial fibrillation, rate controlled, not a candidate for anticoagulation given anemia with hemoglobin of 8.8, hematocrit 28 for which she received a total of 1000 mg of iron in the form of Venofer. 3. Acute kidney injury, likely due to contrast-induced nephropathy has resolved. Her creatinine came down from 1.6 to 0.9. 4. Anorexia and poor oral intake for which we started her on Marinol. 5. Generalized debility and weakness for which she will be discharged home with home health to continue with physical and occupational therapy. DYLAN BENÍTEZ MD DR: PURA/kulwinder JOB#: [id number] / [id number]
== END 2018-12-26 17:30 | disposition home or self-care (01) | DRG 682 ==
LOC: ER 08:05 → UNDOADMIN 09:33 → ICU 09:33 → 1 SOUTH 10:21 → ICU 12-23 01:36 → 1 SOUTH 12-24 07:19
PROVIDERS: ADMIT Internal Medicine; ATTEND Internal Medicine
DX: N17.9 Acute kidney failure, unspecified (principal); I50.33 Acute on chronic diastolic (congestive) heart failure; I13.0 Hypertensive heart and chronic kidney disease with heart failure and stage 1 through stage 4 chronic kidney disease, or unspecified chronic kidney disease; R07.89 Other chest pain; M94.0 Chondrocostal junction syndrome [Tietze]; D64.9 Anemia, unspecified; I48.91 Unspecified atrial fibrillation; N18.9 Chronic kidney disease, unspecified; J84.112 Idiopathic pulmonary fibrosis; H40.9 Unspecified glaucoma; I95.9 Hypotension, unspecified; D50.9 Iron deficiency anemia, unspecified; N14.1 Nephropathy induced by other drugs, medicaments and biological substances; T50.8X5A Adverse effect of diagnostic agents, initial encounter; E78.5 Hyperlipidemia, unspecified; Z83.3 Family history of diabetes mellitus; Z82.49 Family history of ischemic heart disease and other diseases of the circulatory system
CPT/HCPCS: 36415; 71045; 71046; 71260; 74177; 80048; 80053; 81001; 82728; 83540; 83550; 83880; 84443; 84484; 85025; 85027; 85379; 87086; 87641; 93005; 93306; 94618; 96361; 96374; J1160; J1756; J1940; J3490; J7040; J7050; Q0167; Q9967; 97110; 97116; 97535; 99285-25; J7030

== ENCOUNTER → 2019-11-12 | Outpatient (CLI) | payer OTHER ==
[~2019-11-12] MED LIST changes: +AZIT250T6 PO; +BENZ-8 PO; +CEVI30CA11 PO; +DIGO125T17 PO; +DULO30CA2 PO; +FERR325T14 PO; +FURO-69 PO; +HYDR200T5 PO
== END | disposition home or self-care (01) ==
LOC: LAB 09:15
PROVIDERS: ATTEND Registered Nurse
DX: Z11.59 Encounter for screening for other viral diseases (principal)
CPT/HCPCS: C9803; U0003; 87426

== ENCOUNTER → 2019-11-14 | Day surgery (SDC) | payer OTHER ==
[~2019-11-14] MED LIST changes: +IPRATRPIUM/ALBUTEROL 0.5/2.5MG 3 ML NEBU. NEB PRN; +IV RINGERS SOLUTION,LACTATED 1,000 ML IV SCH; +PROPOFOL 10,000 MCG/ML (20ML) VIAL IV ONE
[2019-11-14 13:10] VITALS: BP 144/64
--- NOTE | 2019-11-18 15:07 | PATHOLOGY ---
[facility] Accession Number: [id number] . 01 Material submitted: . PART A: stomach - BX ANTRUM-GASTRITIS PART B: colon - BX ASCENDING COLON POLYP. Modifiers: ascending . 01 Clinical history: . None provided . 02 Diagnosis: A. Gastric biopsies, antrum: - Mild chronic and focal slight acute gastritis. . B. Colon biopsies, ascending colon polyps: - Tubular adenomas. - Hyperplastic mucosal-associated lymphoid aggregate. (JPM:[facility] 11/18/2019) [facility] 11/18/2019 0843 Local . 02 Comment: Sections of the gastric antral biopsy show congestion, and mild chronic and focal slight acute inflammation. A properly controlled immunoperoxidase stain for Helicobacter is negative for Helicobacter organisms. . Sections of the ascending colon biopsy reveal tubular adenomas and a hyperplastic mucosal-associated lymphoid aggregate. There is no high-grade dysplasia or evidence of malignancy. (JPM:[facility] 11/18/2019) . Special stain performed: Immunoperoxidase for Helicobacter on A1. . 02 Electronically signed: . Jose Alfredo Rader MD, Pathologist NPI- [id number] . 01 Gross description: . A. The specimen is received in formalin, labeled "Yulia Olmas, antrum gastritis". Received are two segments of pale yee soft tissue ranging in size from 0.3 to 0.4 cm in maximum dimensions. The specimen is submitted entirely in cassette A1. . B. The specimen is received in formalin, labeled "Yulia Olmas, ascending polyp". Received are three segments of pale yee soft tissue ranging in size from 0.3 to 0.4 cm in maximum dimensions. The specimen is submitted entirely in cassette B1. (CAA; 11/17/2019) QAC/QAC 11/17/2019 1615 Local . 02 Pathologist provided ICD-10: K29.00, K29.50, D12.2 . 02 CPT . 786977, 839407, Q25274 Specimen Comment: A courtesy copy of this report has been sent to [phone], [phone] Specimen Comment: [id number] Specimen Comment: Report sent to / DR ACUNA Specimen Comment: A duplicate report has been generated due to demographic updates. Performed at: 01 [facility] [address] [facility] [address], [place] [id number] MD Lenard Bardales MD Phone: [phone] Performed at: 02 [facility] [address] [place], [place] [id number] MD Jose Alfredo Rader MD Phone: [phone]
== END | disposition home or self-care (01) ==
LOC: SURG 10:34
PROVIDERS: ATTEND Internal Medicine Gastroenterology
DX: D50.0 Iron deficiency anemia secondary to blood loss (chronic) (principal); K64.0 First degree hemorrhoids; K29.50 Unspecified chronic gastritis without bleeding; D12.2 Benign neoplasm of ascending colon; K57.30 Diverticulosis of large intestine without perforation or abscess without bleeding; K21.0 Gastro-esophageal reflux disease with esophagitis; K31.811 Angiodysplasia of stomach and duodenum with bleeding; E03.9 Hypothyroidism, unspecified; R63.0 Anorexia; Z79.899 Other long term (current) drug therapy; Z98.890 Other specified postprocedural states; Z72.0 Tobacco use
CPT/HCPCS: 43239; 45380; J2704; J7120

== ENCOUNTER 2019-12-05 14:09 | Emergency (ER) | payer OTHER ==
[~2019-12-05] VITALS: Ht 154.9 cm; Wt 49.9 kg
[~2019-12-05 14:09] MED LIST changes: -IPRATRPIUM/ALBUTEROL 0.5/2.5MG 3 ML NEBU. NEB PRN; -IV RINGERS SOLUTION,LACTATED 1,000 ML IV SCH; -PROPOFOL 10,000 MCG/ML (20ML) VIAL IV ONE
--- NOTE | 2019-12-05 14:25 | EKG ---
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
[2019-12-05] MEDS ORDERED: IOHEXOL 240 MG/ML 50ML VIAL. ONE (14:30)
[2019-12-05] MEDS ORDERED: IOHEXOL 300 MG/ML 75 ML VIAL. IV ONE (14:30)
[2019-12-05] MEDS ORDERED: IOHEXOL 240 MG/ML 50ML VIAL. PO ONE (14:30)
[2019-12-05 15:00] LABS: CALCIUM 9.3 mg/dL (8.5-10.1); CREATININE 2.7 mg/dL (0.6-1.0); GFR 16.7; POTASSIUM 5.1 mmol/L (3.5-5.1)
[2019-12-05 15:03] LABS: BASO % 1 % (0-3); EOS # 0.1 x10^3/uL (0.0-0.7); EOS % 1 % (0-3); HEMATOCRIT 32.8 % (36.0-47.0); HEMOGLOBIN 11.1 g/dL (12.0-15.5); LYMPH # 1.4 x10^3/uL (1.0-4.8); LYMPH % 17 % (24-48); MEAN CORPUSCULAR HEMOGLOBIN 32 pg (25-35); MEAN CORPUSCULAR HGB CONC 34 g/dL (31-37); MEAN CORPUSCULAR VOLUME 93 fL (79-100); MONO # 0.5 x10^3/uL (0.0-1.1); MONO % 6 % (0-9); NEUT # 6.5 x10^3uL (1.8-7.7); NEUT % 77 % (31-73); PLATELET COUNT 294 x10^3/uL (140-400); RED BLOOD COUNT 3.51 x10^6/uL (3.50-5.40); RED CELL DISTRIBUTION WIDTH 14.8 % (11.5-14.5); WHITE BLOOD COUNT 8.5 x10^3/uL (4.0-11.0)
[2019-12-05 15:06] LABS: ALBUMIN 3.3 g/dL (3.4-5.0); ALBUMIN/GLOBULIN RATIO 0.8 (1.0-1.7); TOTAL BILIRUBIN 0.3 mg/dL (0.2-1.0); TOTAL PROTEIN 7.6 g/dL (6.4-8.2)
--- NOTE | 2019-12-05 15:10 | RAD ---
EXAM: CHEST ONE VIEW. HISTORY: Epigastric pain. COMPARISON: 12/26/2018. FINDINGS: A frontal view of the chest is obtained. Interstitial opacities in both lung bases are chronic, consistent with interstitial lung disease. Lung volumes are relatively small. No superimposed infiltrate is seen. There is no pneumothorax or clear pleural effusion. The heart is not enlarged. There are atherosclerotic calcifications of the aorta. Changes of right rotator cuff repair are noted. IMPRESSION: 1. Stable appearing interstitial lung disease with fibrosis in the bases. Electronically signed by: Jennifer Farmer MD (12/05/2019 3:07 PM) [id number]
[2019-12-05] MEDS ORDERED: IV NORMAL SALINE 1,000ML 1,000 ML IV ONE (15:30)
--- NOTE | 2019-12-05 16:25 | RAD ---
CT abdomen and pelvis with oral contrast only History: Abdominal pain Technique: CT imaging was performed of the abdomen and pelvis. No intravenous contrast was given. Oral contrast was given. Multiplanar images are reviewed. Exposure: One or more of the following individualized dose reduction techniques were utilized for this examination: 1. Automated exposure control 2. Adjustment of the mA and/or kV according to patient size 3. Use of iterative reconstruction technique. Comparison: December 19, 2018 Findings: There is severe coronary calcification. There is emphysema and fibrotic change with areas of honeycombing of the visualized lung bases. A few right upper lobe lung nodules are similar. Accurate evaluation of the abdominal visceral organs is limited without intravenous contrast, no new obvious abnormality of the liver, spleen, or pancreas. Gallbladder is present without obvious intraluminal abnormality by CT. 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 Stomach is somewhat distended, difficult to entirely exclude degree of wall thickening near gastroduodenal junction although not as well distended during exam. Segments of the small bowel are dilated up to about 3.3 cm, also some fluid in the dilated segments of small bowel. There is apparently degraded transition of the caliber of the small bowel in the central abdomen such as seen on images 71 through 280 series 2 and there is some rotational appearance of the mesenteric vasculature and fat in the central and right abdomen and pelvis. The entirety of the small bowel is not dilated with sparing of the more distal small bowel. No free air is identified. There is mild free fluid in the dependent right pelvis. Colon is not dilated. Appendix is not confidently identified. There is severe diverticulosis of the sigmoid colon and to lesser degree of the descending colon. There is multilevel lumbar degenerative disc disease. There is multilevel mild abnormal alignment of the lumbar spine, multilevel lumbar facet degenerative change. There is moderate lumbar dextroscoliosis. There is multilevel variable lateral recess stenosis. There is multilevel neural foramina compromise greatest bilaterally at L2-3 and on the right at L3-4 and L4-5 and on the left at L1-2. There is likely hemangioma of the L5 vertebral body. Impression: 1. There is evidence of small bowel obstruction, transition of caliber in the more central abdominal region, also somewhat rotational appearance of the mesentery and vessels which could be indicative of volvulus component. There is minimal free fluid in the pelvis. 2. There is colonic diverticulosis greatest of the sigmoid colon. 3. There is severe coronary calcification. 4. There is emphysema and fibrotic change/honeycombing of the visualized lung bases. 5. There is multilevel lumbar degenerative disc disease and facet degenerative change. There is variable lateral recess stenosis and multilevel neural foramina compromise. 6. 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 Electronically signed by: Abhishek Hardin MD (12/05/2019 4:22 PM) [facility]
[2019-12-05] MEDS ORDERED: ONDANSETRON PF 4 MG/2 ML VIAL. IVP ONE (17:00)
[2019-12-05] MEDS ORDERED: ONDANSETRON PF 4 MG/2 ML VIAL. ONE (17:05)
[2019-12-05] MEDS ORDERED: BENZOCAINE ONE 20% MUCOSAL SPRAY. (17:06)
[2019-12-05 20:55] VITALS: BP 113/53
--- NOTE | 2019-12-05 21:13 | PHYS DOC ---
Past History Past Medical History: Glaucoma, High Cholesterol, Hypertension, Hypothyroid Past Surgical History: No Surgical History Alcohol Use: None Drug Use: None General Adult EDM: Chief Complaint: ABDOMINAL PAIN HPI: HPI: Patient is a 89 year old female who presents with abdomen pain. Review of Systems: Review of Systems: See Dr. Richardson notes GI: Complailns of abdominal pain, nausea, vomiting, Heart Score: Risk Factors: Risk Factors: DM, Current or recent (<one month) smoker, HTN, HLP, family history of CAD, obesity. Risk Scores: Score 0 - 3: 2.5% MACE over next 6 weeks - Discharge Home Score 4 - 6: 20.3% MACE over next 6 weeks - Admit for Clinical Observation Score 7 - 10: 72.7% MACE over next 6 weeks - Early Invasive Strategies Family History: Family History: Non contributory Current Medications: Current Meds: See Nursing for home meds. Current Medications Medications (Trade) Dose Ordered Sig/Allen Start Time Stop Time Status Last Admin Dose Admin Benzocaine (Hurricaine One) 1 spray STK-MED ONCE 12/05/19 17:06 12/05/19 17:06 DC Iohexol (Omnipaque 240 Mg/ml) 30 ml 1X ONCE 12/05/19 14:30 12/05/19 14:40 DC Iohexol (Omnipaque 300 Mg/ml) 75 ml 1X ONCE 12/05/19 14:30 12/05/19 14:40 DC Ondansetron HCl (Zofran) 4 mg 1X ONCE 12/05/19 17:00 12/05/19 17:29 DC 12/05/19 17:00 4 MG Sodium Chloride 1,000 ml @ 1,000 mls/hr 1X ONCE 12/05/19 15:30 12/05/19 16:29 DC 12/05/19 16:10 1,000 MLS/HR Allergies: Allergies: Allergies Coded Allergies Type Severity Reaction Last Updated Verified No Known Drug Allergies 11/14/19 No Physical Exam: PE: See Dr. Richardson notes Current Patient Data: Labs: Laboratory Tests Test 12/05/19 14:30 White Blood Count 8.5 x10^3/uL (4.0-11.0) Red Blood Count 3.51 x10^6/uL (3.50-5.40) Hemoglobin 11.1 g/dL (12.0-15.5) L Hematocrit 32.8 % (36.0-47.0) L Mean Corpuscular Volume 93 fL (79-100) Mean Corpuscular Hemoglobin 32 pg (25-35) Mean Corpuscular Hemoglobin Concent 34 g/dL (31-37) Red Cell Distribution Width 14.8 % (11.5-14.5) H Platelet Count 294 x10^3/uL (140-400) Neutrophils (%) (Auto) 77 % (31-73) H Lymphocytes (%) (Auto) 17 % (24-48) L Monocytes (%) (Auto) 6 % (0-9) Eosinophils (%) (Auto) 1 % (0-3) Basophils (%) (Auto) 1 % (0-3) Neutrophils # (Auto) 6.5 x10^3uL (1.8-7.7) Lymphocytes # (Auto) 1.4 x10^3/uL (1.0-4.8) Monocytes # (Auto) 0.5 x10^3/uL (0.0-1.1) Eosinophils # (Auto) 0.1 x10^3/uL (0.0-0.7) Basophils # (Auto) 0.0 x10^3/uL (0.0-0.2) Sodium Level 136 mmol/L (136-145) Potassium Level 5.1 mmol/L (3.5-5.1) Chloride Level 101 mmol/L (98-107) Carbon Dioxide Level 25 mmol/L (21-32) Anion Gap 10 (6-14) Blood Urea Nitrogen 50 mg/dL (7-20) H Creatinine 2.7 mg/dL (0.6-1.0) H Estimated GFR (Cockcroft-Gault) 16.7 BUN/Creatinine Ratio 19 (6-20) Glucose Level 133 mg/dL (70-99) H Calcium Level 9.3 mg/dL (8.5-10.1) Total Bilirubin 0.3 mg/dL (0.2-1.0) Aspartate Amino Transferase (AST) 19 U/L (15-37) Alanine Aminotransferase (ALT) 13 U/L (14-59) L Alkaline Phosphatase 107 U/L (46-116) Troponin I Quantitative < 0.017 ng/mL (0-0.055) Total Protein 7.6 g/dL (6.4-8.2) Albumin 3.3 g/dL (3.4-5.0) L Albumin/Globulin Ratio 0.8 (1.0-1.7) L Lipase 93 U/L (73-393) Vital Signs: Vital Signs Date Time Temp Pulse Resp B/P (MAP) Pulse Ox O2 Delivery O2 Flow Rate FiO2 12/05/19 20:55 74 16 113/53 (73) 97 12/05/19 18:30 Room Air 12/05/19 14:19 98.7 EKG: EKG: [] Radiology/Procedures: Radiology/Procedures: [[address] [address] IMAGING REPORT Signed PATIENT: JAYE MOROCHO ACCOUNT: [id number] : 1930 LOCATION: ER AGE: 89 SEX: F EXAM STATUS: REG ER ORD. PHYSICIAN: LUCERO RICHARDSON MD REASON: epigastric pain PROCEDURE: CHEST AP ONLY EXAM: CHEST ONE VIEW. HISTORY: Epigastric pain. COMPARISON: 12/26/2018. FINDINGS: A frontal view of the chest is obtained. Interstitial opacities in both lung bases are chronic, consistent with interstitial lung disease. Lung volumes are relatively small. No superimposed infiltrate is seen. There is no pneumothorax or clear pleural effusion. The heart is not enlarged. There are atherosclerotic calcifications of the aorta. Changes of right rotator cuff repair are noted. IMPRESSION: 1. Stable appearing interstitial lung disease with fibrosis in the bases. Electronically signed by: Jennifer Farmer MD (12/05/2019 3:07 PM) [id number] DICTATED AND SIGNED BY: ARIANNA FARMER MD DATE: 12/05/19 1507 CC: LUCERO RICHARDSON MD; JOSUÉ ACUNA MD ~ ][address] [address] IMAGING REPORT Signed PATIENT: JAYE MOROCHO ACCOUNT: [id number] : 1930 LOCATION: ER AGE: 89 SEX: F EXAM STATUS: REG ER ORD. PHYSICIAN: LUCERO RICHARDSON MD REASON: abd pain PROCEDURE: CT ABD PEL W/ORAL CONTRST ONLY CT abdomen and pelvis with oral contrast only History: Abdominal pain Technique: CT imaging was performed of the abdomen and pelvis. No intravenous contrast was given. Oral contrast was given. Multiplanar images are reviewed. Exposure: One or more of the following individualized dose reduction techniques were utilized for this examination: 1. Automated exposure control 2. Adjustment of the mA and/or kV according to patient size 3. Use of iterative reconstruction technique. Comparison: December 19, 2018 Findings: There is severe coronary calcification. There is emphysema and fibrotic change with areas of honeycombing of the visualized lung bases. A few right upper lobe lung nodules are similar. Accurate evaluation of the abdominal visceral organs is limited without intravenous contrast, no new obvious abnormality of the liver, spleen, or pancreas. Gallbladder is present without obvious intraluminal abnormality by CT. 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 Stomach is somewhat distended, difficult to entirely exclude degree of wall thickening near gastroduodenal junction although not as well distended during exam. Segments of the small bowel are dilated up to about 3.3 cm, also some fluid in the dilated segments of small bowel. There is apparently degraded transition of the caliber of the small bowel in the central abdomen such as seen on images 71 through 280 series 2 and there is some rotational appearance of the mesenteric vasculature and fat in the central and right abdomen and pelvis. The entirety of the small bowel is not dilated with sparing of the more distal small bowel. No free air is identified. There is mild free fluid in the dependent right pelvis. Colon is not dilated. Appendix is not confidently identified. There is severe diverticulosis of the sigmoid colon and to lesser degree of the descending colon. There is multilevel lumbar degenerative disc disease. There is multilevel mild abnormal alignment of the lumbar spine, multilevel lumbar facet degenerative change. There is moderate lumbar dextroscoliosis. There is multilevel variable lateral recess stenosis. There is multilevel neural foramina compromise greatest bilaterally at L2-3 and on the right at L3-4 and L4-5 and on the left at L1-2. There is likely hemangioma of the L5 vertebral body. Impression: 1. There is evidence of small bowel obstruction, transition of caliber in the more central abdominal region, also somewhat rotational appearance of the mesentery and vessels which could be indicative of volvulus component. There is minimal free fluid in the pelvis. 2. There is colonic diverticulosis greatest of the sigmoid colon. 3. There is severe coronary calcification. 4. There is emphysema and fibrotic change/honeycombing of the visualized lung bases. 5. There is multilevel lumbar degenerative disc disease and facet degenerative change. There is variable lateral recess stenosis and multilevel neural foramina compromise. 6. 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 Electronically signed by: Andressa Ambrocio MD (12/05/2019 4:22 PM) [facility] DICTATED AND SIGNED BY: ANDRESSA AMBROCIO MD DATE: 12/05/191621 CC: LUCERO RICHARDSON MD; JOSUÉ ACUNA MD ~ Course & Med Decision Making: Course & Med Decision Making Pertinent Labs and Imaging studies reviewed. (See chart for details) See Dr. Richardson notes for details. Still awaiting transfer to [facility]. 21`00 Hrs. Pt. left ED at 2144 hrs. Impression: 1. Abdomen Pain 2. Small bowel ileus-CT suggestive of volvulus 3. Anemia Hgb 11.1 4. Elevated BUN/Creat. 50/2.7 5. Elevated Glucose 133 [] Dragon Disclaimer: Karl Disclaimer: This electronic medical record was generated, in whole or in part, using a voice recognition dictation system. Departure Departure: Disposition: XFER SHT-TRM HOSP Condition: GUARDED Referrals: JOSUÉ ACUNA MD (PCP) Justification of Admission: Justification of Admission: Justification of Admission Dx: Yes Comments: Evidence of Volvulus- small bowel ileus- transfer to [facility]. JODY SILVERIO MD Dec 05, 2019 21:13
== END 2019-12-05 21:44 | disposition short-term general hospital (02) ==
LOC: ER 14:09
DX: K56.7 Ileus, unspecified (principal); D64.9 Anemia, unspecified; R94.4 Abnormal results of kidney function studies; R73.9 Hyperglycemia, unspecified; R11.2 Nausea with vomiting, unspecified; E78.00 Pure hypercholesterolemia, unspecified; I10 Essential (primary) hypertension; E03.9 Hypothyroidism, unspecified
CPT/HCPCS: 36415; 71045; 74176; 80053; 83690; 84484; 85025; 93005; 96361; 96374; 99285; J2405; J7030

== ENCOUNTER 2020-03-17 15:37 | Inpatient (IN) | payer OTHER ==
[~2020-03-17] VITALS: Ht 142.2 cm; Wt 40.1 kg
[2020-03-17] MEDS ORDERED: ONDANSETRON PF 4 MG/2 ML VIAL. IVP PRN (16:30)
[2020-03-17] MEDS ORDERED: ACETAMINOPHEN 325 MG TABLET PO PRN (16:30)
[2020-03-17 16:36] LABS: BASO # 0.1 x10^3/uL (0.0-0.2); BASO % 1 % (0-3); EOS # 0.2 x10^3/uL (0.0-0.7); EOS % 3 % (0-3); HEMATOCRIT 23.3 % (36.0-47.0); HEMOGLOBIN 7.4 g/dL (12.0-15.5); LYMPH # 1.5 x10^3/uL (1.0-4.8); LYMPH % 23 % (24-48); MEAN CORPUSCULAR HEMOGLOBIN 30 pg (25-35); MEAN CORPUSCULAR HGB CONC 32 g/dL (31-37); MEAN CORPUSCULAR VOLUME 95 fL (79-100); MONO # 0.4 x10^3/uL (0.0-1.1); MONO % 6 % (0-9); NEUT # 4.3 x10^3uL (1.8-7.7); NEUT % 67 % (31-73); PLATELET COUNT 347 x10^3/uL (140-400); RED BLOOD COUNT 2.44 x10^6/uL (3.50-5.40); WHITE BLOOD COUNT 6.4 x10^3/uL (4.0-11.0)
[2020-03-17 16:50] LABS: ALBUMIN 3.2 g/dL (3.4-5.0); ALBUMIN/GLOBULIN RATIO 0.7 (1.0-1.7); CALCIUM 8.9 mg/dL (8.5-10.1); CREATININE 3.3 mg/dL (0.6-1.0); GFR 13.2; POTASSIUM 5.8 mmol/L (3.5-5.1); TOTAL BILIRUBIN 0.1 mg/dL (0.2-1.0); TOTAL PROTEIN 7.5 g/dL (6.4-8.2)
[2020-03-17 16:51] VITALS: BP 128/69
[2020-03-17] MEDS ORDERED: ACET325T9 PO (16:58)
[2020-03-17] MEDS ORDERED: IBUP200T58 PO (16:58)
--- NOTE | 2020-03-17 17:11 | NUR ---
PT admitted to ICU 4. Sister did accompany her into hospital to help with communication. Pt does speak some stateless. Lives in a house with other sisters, however, we will still swab for covid due to cold symptoms. PT was found to be anemic and op labs. Was directly admitted from [facility] in [place]. Pt is able to verbalize understanding of admission to unit and poc. Labs redrawn and sent to lab. Dr Alcala present on unit during admit. PT did have dark stools a few days ago per pt. She has been taking tylenol and advil for hand pain. Klaudia Walton APRN
[2020-03-17] MEDS: IV NORMAL SALINE 1,000ML 1,000 ML IV SCH (17:15)
[2020-03-17] MEDS ORDERED: CHOL400T36 PO (17:35)
[2020-03-17] MEDS ORDERED: ESCITALOPRAM OX10 MG PO (17:35)
--- NOTE | 2020-03-17 18:09 | HP ---
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 Her hemoglobin is down to 6.7, hematocrit 21; however, her platelet and white cell count were normal. She also has acute renal failure according to her primary care physician, although looking back at her most recent admission she does have chronic renal failure. At that time, her creatinine was 2.7. Questioning the patient, she has had no nausea or vomiting or hematemesis, but she stated that she has black tarry stool for the last 3 days. We are not sure whether she has been taking Advil for her pain in her hands and when she arrived to the ICU here she was hemodynamically stable. We did repeat all her lab work and in fact, her hemoglobin was 7.4, hematocrit 23.3 with normal white cell count and platelets. Her chemistry was still pending at the time of this dictation. PAST MEDICAL HISTORY: Significant for hypertension, hyperlipidemia, hypothyroidism. She is also known to have glaucoma and idiopathic pulmonary fibrosis. PAST SURGICAL HISTORY: Significant for left ankle fracture, status post open reduction and internal fixation in 2015. ALLERGIES: She has no known drug allergies based on her most recent admission. MEDICATIONS: The patient was on hydroxychloroquine sulfate 200 mg daily, ferrous sulfate 325 mg twice a day, losartan potassium 50 mg daily, meloxicam 50 mg tablet once a day, duloxetine 30 mg daily, furosemide 20 mg twice a day, prednisolone acetate 1 drop to both eyes 4 times a day, and levothyroxine sodium 50 mcg daily as well as cholecalciferol 1000 international units once a day. FAMILY HISTORY: She has 2 sisters and 2 brothers, all younger than her, one of her sisters is nun, the others are . She has 2 brothers, both live in [place], one has coronary artery disease, the younger one has diabetes. Her father at the age of 90. Mother at the age of 69. 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 SOCIAL HISTORY: She does not smoke, drink alcohol or use any recreational drugs. PHYSICAL EXAMINATION: GENERAL: When I examined her this afternoon, she was pale, no jaundice, cyanosis or thyromegaly. No jugular venous distention. No lower limb edema. VITAL SIGNS: Her heart rate was 99, blood pressure was 128/69, temperature was 98, respiratory rate 22, and oxygen saturation was 99% on room air. HEAD, EYES, EARS, NOSE AND THROAT: Showed normocephalic, atraumatic. NECK: Supple. HEART: Showed normal first and second heart sounds. No gallop or murmur. CHEST: Showed central trachea, equal bilateral chest expansion, air entry, vesicular sounds with early coarse crepitation on both sides posteriorly. I could not appreciate any rhonchi. ABDOMEN: Distended, soft, nontender. NEUROLOGIC: She is hard of hearing, but otherwise all her cranial nerves intact. EXTREMITIES: She moves extremities spontaneously. LABORATORY DATA: His lab work on arrival to the ICU showed a white cell count of 6400, hemoglobin 7.4, hematocrit 23.3, MCV 95, and platelet count of 347,000. His most recent lab work when she was admitted on 12/22/2018 showed that her serum sodium was 135, potassium 4.4, chloride 98, bicarbonate 27, anion gap of 10, BUN 33, creatinine was 1.6, estimated GFR was 30 mL per minute. Her glucose was 125 and calcium was 8.6. Her total bilirubin, AST, ALT, alkaline phosphatase at that time were normal. Her hemoglobin at that time was 9.1 and hematocrit was 29, MCV was 76; however, her white cell count and platelets were both normal. ASSESSMENT AND PLAN: This is an 89-year-old female patient who was admitted with probably acute blood loss anemia and she also has probably acute on chronic kidney injury, at least from the list of her medications she was on before. She was on meloxicam and she was also on losartan potassium. We will definitely discontinue all the nonsteroidals and also the angiotensin receptor rios. We will monitor her H and H and transfuse as needed. We will start her on some IV fluid and monitor her kidney function accordingly. DYLAN BENÍTEZ MD DR: PURA/kulwinder JOB#: [id number] / [id number]
--- NOTE | 2020-03-17 18:20 | NUR ---
PT refuses flu vaccine at this time until she starts to feel better. Masha MIGUEL
[2020-03-17 19:15] VITALS: BP 136/61
[2020-03-17 19:42] VITALS: BP 125/51
[2020-03-17 20:42] VITALS: BP 128/60
[2020-03-17 20:57] LABS: BILIRUBIN,URINE NEG (NEG); CLARITY,URINE CLEAR; COLOR,URINE YELLOW; GLUCOSE,URINE NEG (NEG)
[2020-03-17 20:58] LABS: NITRITE,URINE NEG (NEG); RBC,URINE >40 /HPF (0-2); UROBILINOGEN,URINE 0.2 mg/dL (0.2 mg/dL); WBC,URINE OCC /HPF (0-4)
[2020-03-17 20:59] LABS: BACTERIA,URINE 0 /HPF (0-FEW); SQUAMOUS EPITHELIAL CELL,UR OCC /LPF
[2020-03-17] MEDS: PANTOPRAZOLE IV 40 MG VIAL. IVP SCH (21:08)
[2020-03-17 21:35] VITALS: BP 106/45
[2020-03-17 22:11] LABS: HEMATOCRIT 23.7 % (36.0-47.0); HEMOGLOBIN 7.6 g/dL (12.0-15.5)
--- NOTE | 2020-03-17 22:30 | NUR ---
Hemoglobin after infusion is 7.6. Per Dr. Alcala, only transfuse another unit if 7.0 or less. Labs to be drawn in am.
[2020-03-17 22:35] VITALS: BP 103/43
[2020-03-18] MEDS: IV NORMAL SALINE 1,000ML 1,000 ML IV SCH ×3 (04:46→22:29)
[2020-03-18 06:34] LABS: HEMOGLOBIN 7.7 g/dL (12.0-15.5); RED BLOOD COUNT 2.61 x10^6/uL (3.50-5.40); RED CELL DISTRIBUTION WIDTH 17.5 % (11.5-14.5); WHITE BLOOD COUNT 6.3 x10^3/uL (4.0-11.0)
[2020-03-18 07:00] VITALS: BP 125/81
[2020-03-18 07:07] LABS: ALBUMIN 2.5 g/dL (3.4-5.0); ALBUMIN/GLOBULIN RATIO 0.7 (1.0-1.7); CALCIUM 8.5 mg/dL (8.5-10.1); CREATININE 2.8 mg/dL (0.6-1.0); GFR 15.9; POTASSIUM 5.4 mmol/L (3.5-5.1); TOTAL BILIRUBIN 0.2 mg/dL (0.2-1.0)
[2020-03-18] MEDS: PANTOPRAZOLE IV 40 MG VIAL. IVP SCH ×2 (09:25→20:04)
[2020-03-18 11:00] VITALS: BP 109/51
[2020-03-18] MEDS: SODIUM BICARBONATE 650 MG TABLET PO SCH ×2 (15:30→20:05)
[2020-03-18] MEDS: CITALOPRAM 20 MG TABLET. PO SCH (17:30)
--- NOTE | 2020-03-18 17:37 | NUR ---
Pt stable throughout day, bowel movement x2 with no evidence of blood in stool. Home medications restarted, pt refused afternoon medication stating, "no no no, too late." while pointing at her watch. Tolerated breakfast, lunch and dinner. Pt called Sister Karo to let her know Dr. Alcala said he will be discharging her tomorrow.
[2020-03-18 19:29] LABS: HEMATOCRIT 25.1 % (36.0-47.0); HEMOGLOBIN 8.1 g/dL (12.0-15.5)
[2020-03-18 19:30] VITALS: BP 111/47
[2020-03-18] MEDS: CEVIMELINE HCL PO SCH (20:05)
--- NOTE | 2020-03-18 22:18 | PN ---
DATE: 03/18/2020 SUBJECTIVE: The patient almost resting, slightly propped up in bed, no apparent distress. She is awake, alert, has had no nausea or vomiting, no hematemesis. She had multiple bowel movements and according to nursing staff, there is no blood. She did complain of pain when she ate her breakfast this morning, but she tolerated lunch without any difficulty. She has been up and about with standby assist without any difficulty. She did receive 1 unit of packed RBCs yesterday. PHYSICAL EXAMINATION: GENERAL: When I examined her today, she looked pale, cachectic, but no jaundice, cyanosis or thyromegaly. No jugular venous distention. No limb edema. VITAL SIGNS: Her heart rate was 86, blood pressure was 109/51, temperature was 97.9, respiratory rate was 12 and oxygen saturation was 96%. HEENT: Showed normocephalic, atraumatic. NECK: Supple. HEART: Showed normal first and second heart sounds. No gallop, rub or murmur. CHEST: Clear to auscultation. No crepitation or rhonchi. ABDOMEN: Scaphoid, soft, nontender. NEUROLOGIC: She is hard of hearing, but otherwise all her cranial nerves are intact. She moves extremities without difficulty. She ambulates without assistance or assistive devices. Her intake over the last done was 1050, output was 950. LABORATORY DATA: As of this morning showed a white cell count of 6300, hemoglobin 7.7, hematocrit 24, MCV was 92, and platelet count of 276,000. Her chemistry showed a serum sodium 143, potassium 5.4, chloride 114, bicarbonate was 18 and anion gap of 11, BUN 50-51, creatinine was 2.8, estimated GFR was 16 mL per minute. Her glucose was 90, calcium was 8.5. Total bilirubin, AST, ALT, alkaline phosphatase were normal. Total protein 6, albumin was 2.5. Her urinalysis showed that she has large amount of blood, but was negative for bacteria. ASSESSMENT: 1. In summary, this is an 89-year-old female patient who was admitted with acute blood loss anemia. 2. Acute on chronic kidney injury. 3. She has multiple other medical problems including: A. Hypertension. B. Hyperlipidemia. C. Hypothyroidism. D. Glaucoma. E. Idiopathic pulmonary fibrosis. PLAN: To continue with IV fluid. We will repeat her H and H this evening and again her CBC and BMP tomorrow morning. If she remains stable, we will discharge her back to her home. We will make sure that she should not be on any nonsteroidal, as last time she was on meloxicam and this time she was on ibuprofen. DYLAN BENÍTEZ MD DR: PURA/kulwinder JOB#: [id number] / [id number]
[2020-03-18 23:00] VITALS: BP 116/47
--- NOTE | 2020-03-19 05:58 | NUR ---
Shift Note: pt is a/o x4, HO-CHUNK and speaks little [place]an however understands more, VSS, no c/o n/v at this time, pt does have chronic arthritic pain (tylenol administered as ordered), IV fluids infusing as ordered, labs drawn this am, last hemiglobin was 8.1
[2020-03-19] MEDS ORDERED: LEVOTHYROXINE 50 MCG TABLET PO SCH (06:00)
[2020-03-19 06:01] VITALS: BP 133/60
[2020-03-19 06:22] LABS: HEMATOCRIT 25.6 % (36.0-47.0); HEMOGLOBIN 8.3 g/dL (12.0-15.5); RED BLOOD COUNT 2.78 x10^6/uL (3.50-5.40); RED CELL DISTRIBUTION WIDTH 17.5 % (11.5-14.5)
[2020-03-19 06:31] LABS: CALCIUM 8.3 mg/dL (8.5-10.1); CREATININE 2.6 mg/dL (0.6-1.0); GFR 17.4; POTASSIUM 4.9 mmol/L (3.5-5.1)
[2020-03-19] MEDS: CEVIMELINE HCL PO SCH (09:00)
[2020-03-19] MEDS ORDERED: DIGOXIN 125 MCG TABLET PO SCH (09:00)
--- NOTE | 2020-03-19 09:15 | NUR ---
0915 Spoke with sister Karo regarding discharge time, explained Dr Alcala will see pt first and then deside on discharge. She agreed and would like a call when pt discharges, sister Karo will orange picking supervisor patient.
[2020-03-19] MEDS: CITALOPRAM 20 MG TABLET. PO SCH (09:19)
[2020-03-19] MEDS: SODIUM BICARBONATE 650 MG TABLET PO SCH (09:20)
[2020-03-19] MEDS: PANTOPRAZOLE IV 40 MG VIAL. IVP SCH (09:20)
[2020-03-19 11:40] VITALS: BP 138/60
[2020-03-19] MEDS ORDERED: PANT40TA3 PO (13:24)
[2020-03-19] MEDS ORDERED: ASCO500C9 PO (13:33)
[2020-03-19] MEDS ORDERED: FERR325T14 PO (13:33)
--- NOTE | 2020-03-19 14:00 | NUR ---
Karo called to sisal picker Sister Yulia for discharge.
--- NOTE | 2020-03-19 15:08 | NUR ---
Discharge note-[employer] phone used to interpret discharge. Do not take-medication list printed out for pt to use for reference. Pt verbalized understanding to nurse and [employer] experimental mechanic spacecraft. Medications called to [facility] pharmacy. All questions answered. A/Ox4, stable on feet, vitals stable.
[2020-03-25] MEDS ORDERED: CHOLECALCIFEROL 10000 UNIT PO SCH (09:00)
== END 2020-03-19 15:08 | disposition home or self-care (01) | DRG 811 ==
LOC: ICU 15:37
PROVIDERS: ADMIT Internal Medicine; ATTEND Internal Medicine
PROC: 30233N1 Transfusion of Nonautologous Red Blood Cells into Peripheral Vein, Percutaneous Approach (ICD-10-PCS; principal; 2020-03-17)
DX: D62 Acute posthemorrhagic anemia (principal); N17.0 Acute kidney failure with tubular necrosis; E43 Unspecified severe protein-calorie malnutrition; Z68.1 Body mass index [BMI] 19.9 or less, adult; E03.9 Hypothyroidism, unspecified; E78.5 Hyperlipidemia, unspecified; H40.9 Unspecified glaucoma; I12.9 Hypertensive chronic kidney disease with stage 1 through stage 4 chronic kidney disease, or unspecified chronic kidney disease; J84.112 Idiopathic pulmonary fibrosis; N18.9 Chronic kidney disease, unspecified; Z82.49 Family history of ischemic heart disease and other diseases of the circulatory system; Z83.3 Family history of diabetes mellitus; Z20.828 Contact with and (suspected) exposure to other viral communicable diseases; M79.641 Pain in right hand; M79.642 Pain in left hand
CPT/HCPCS: 36415; 80048; 80053; 81001; 85014; 85018; 85025; 85027; 86850; 86900; 86901; 86920; C9113; P9016; U0003; J7030

== ENCOUNTER 2020-04-13 11:12 | Emergency (ER) | payer OTHER ==
[~2020-04-13] VITALS: Ht 142.2 cm; Wt 40.1 kg
[~2020-04-13 11:12] MED LIST changes: +ACET325T9 PO; +ASCO500C9 PO; +CHOL400T36 PO; +ESCITALOPRAM OX10 MG PO; +IBUP200T58 PO; +PANT40TA3 PO
--- NOTE | 2020-04-13 11:44 | PHYS DOC ---
Past History Past Medical History: Glaucoma, High Cholesterol, Hypertension, Hypothyroid Past Surgical History: No Surgical History Alcohol Use: None Drug Use: None General Adult EDM: Chief Complaint: BLOODY STOOL HPI: HPI: Patient is a 89-year-old female presents with a 2-month history of generalized weakness. Patient was seen for her doctor at [facility] within the last week for generalized weakness and was told to come to the ER for renal failure. Patient denies any pain or dizziness or difficulty breathing. Patient had a mild cough but her primary complaint is generalized weakness. Patient has also had some blood in her stools. Patient was worked up for the anemia and I cannot find out where her blood loss is coming from. Review of Systems: Review of Systems: Constitutional: Denies fever or chills Eyes: Denies change in visual acuity HENT: Denies nasal congestion or sore throat Respiratory: Has had a mild cough but no shortness of breath Cardiovascular: Denies chest pain or edema GI: Denies abdominal pain, nausea, vomiting, bloody stools or diarrhea : Denies dysuria Musculoskeletal: Denies back pain or joint pain Integument: Denies rash Neurologic: Denies headache, focal weakness or sensory changes Endocrine: Denies polyuria or polydipsia Lymphatic: Denies swollen glands Psychiatric: Denies depression or anxiety Allergies: Allergies: Allergies Coded Allergies Type Severity Reaction Last Updated Verified No Known Drug Allergies 11/14/19 No Physical Exam: PE: Constitutional: Well developed, well nourished, no acute distress, non-toxic appearance. [] HENT: Normocephalic, atraumatic, bilateral external ears normal, no trismus nose normal. [] Eyes: PERRLA, EOMI, pale conjunctiva , no discharge. [] Neck: Normal range of motion, no tenderness, supple, no stridor. [] No meningeal signs Cardiovascular:Heart rate regular rhythm, no murmur [] cap refill less than 3 seconds Lungs & Thorax: Bilateral breath sounds clear, no respiratory distress Abdomen soft, no tenderness, no masses, no pulsatile masses. [] Skin: Warm, dry, no erythema, no rash. [] Pale Back: No tenderness, no CVA tenderness. [] Extremities: No tenderness, no cyanosis, no clubbing, ROM intact, no edema. [] Neurologic: Alert and oriented X 3, normal motor function, normal sensory function, no focal deficits noted. [] Psychologic: Affect normal, judgement normal, mood normal. [] Current Patient Data: Labs: Laboratory Tests Test 04/13/20 12:08 White Blood Count 7.7 x10^3/uL Red Blood Count 2.28 x10^6/uL Hemoglobin 6.6 g/dL Hematocrit 20.9 % Mean Corpuscular Volume 92 fL Mean Corpuscular Hemoglobin 29 pg Mean Corpuscular Hemoglobin Concent 32 g/dL Red Cell Distribution Width 16.7 % Platelet Count 324 x10^3/uL Neutrophils (%) (Auto) 69 % Lymphocytes (%) (Auto) 21 % Monocytes (%) (Auto) 6 % Eosinophils (%) (Auto) 3 % Basophils (%) (Auto) 1 % Neutrophils # (Auto) 5.3 x10^3uL Lymphocytes # (Auto) 1.6 x10^3/uL Monocytes # (Auto) 0.5 x10^3/uL Eosinophils # (Auto) 0.2 x10^3/uL Basophils # (Auto) 0.1 x10^3/uL Prothrombin Time 9.9 SEC Prothromb Time International Ratio 1.0 Sodium Level 138 mmol/L Potassium Level 6.4 mmol/L Chloride Level 106 mmol/L Carbon Dioxide Level 21 mmol/L Anion Gap 11 Blood Urea Nitrogen 65 mg/dL Creatinine 3.4 mg/dL Estimated GFR (Cockcroft-Gault) 12.7 BUN/Creatinine Ratio 19 Glucose Level 92 mg/dL Calcium Level 8.8 mg/dL Total Bilirubin 0.1 mg/dL Aspartate Amino Transf (AST/SGOT) 16 U/L Alanine Aminotransferase (ALT/SGPT) 12 U/L Alkaline Phosphatase 94 U/L Troponin I Quantitative < 0.017 ng/mL Total Protein 7.3 g/dL Albumin 3.0 g/dL Albumin/Globulin Ratio 0.7 Current Medications Medications (Trade) Dose Ordered Sig/Allen Route PRN Reason Start Time Stop Time Status Last Admin Dose Admin Calcium Gluconate (Calcium Gluconate) 1,000 mg 1X ONCE IV 04/13/20 13:00 04/13/20 13:02 DC 04/13/20 13:14 Insulin Human Regular (HumuLIN R VIAL) 10 unit 1X ONCE IV 04/13/20 13:00 04/13/20 13:02 DC 04/13/20 13:14 Dextrose (Dextrose 50%-Water Syringe) 50 gm 1X ONCE IV 04/13/20 13:00 04/13/20 13:02 DC 04/13/20 13:17 Vital Signs: Vital Signs Date Time Temp Pulse Resp B/P (MAP) Pulse Ox O2 Delivery O2 Flow Rate FiO2 04/13/20 11:28 97.8 89 16 156/84 (108) 98 Room Air EKG: EKG: EKG interpreted by me normal sinus rhythm with rate 87 left axis deviation, n ormal ST segments, normal QRS, normal intervals Radiology/Procedures: Radiology/Procedures: [][address] [address] IMAGING REPORT Signed PATIENT: JAYE MOROCHO ACCOUNT: [id number] : 1930 LOCATION: ER AGE: 89 SEX: F EXAM STATUS: REG ER ORD. PHYSICIAN: MALATHI DONALD MD REASON: WEAKNESS PROCEDURE: PORTABLE CHEST 1V AP chest. HISTORY: Weakness AP view was taken of the chest. Heart is normal in size. There is atherosclerotic change in the aorta. There are chronic interstitial infiltrates or fibrosis in the lung bases similar to the study from December 04. A new confluent pneumonia is not identified. There is mild scoliosis. IMPRESSION: 1. Chronic interstitial lung disease. 2. No acute infiltrates. Electronically signed by: Mandeep Pike MD (04/13/2020 12:15 PM) [id number] DICTATED AND SIGNED BY: MANDEEP PIKE MD DATE: 04/13/20 1215 CC: MALATHI DONALD MD; BRADLEY YATES ~ Heart Score: Risk Factors: Risk Factors: DM, Current or recent (<one month) smoker, HTN, HLP, family history of CAD, obesity. Risk Scores: Score 0 - 3: 2.5% MACE over next 6 weeks - Discharge Home Score 4 - 6: 20.3% MACE over next 6 weeks - Admit for Clinical Observation Score 7 - 10: 72.7% MACE over next 6 weeks - Early Invasive Strategies Course & Med Decision Making: Course & Med Decision Making Pertinent Labs and Imaging studies reviewed. (See chart for details) [] 89-year-old female presents with generalized weakness. Patient found to have profound anemia. Patient will need a blood transfusion patient also has acute on chronic renal failure patient will need to have her hyperkalemia treated which she has been given insulin, calcium and D50. Patient need to be transferred to [facility], Dr. Mueller will be admitting. Patient has been placed with renal as well (dr. felix) Critical care time was [35] minutes exclusive of procedures. Critical condition: Profound anemia, acute on chronic renal failure with hyperkalemia Critical interventions: Blood transfusion, treatment for hyperkalemia, transfer to [place] with renal consult. Dragon Disclaimer: Dragon Disclaimer: This electronic medical record was generated, in whole or in part, using a voice recognition dictation system. Departure Departure: Impression: Primary Impression: Acute kidney injury superimposed on CKD Additional Impressions: Profound anemia Generalized weakness Disposition: 02 DC/TRF OTHER SHORT TERM HOS ([place]) Condition: GUARDED Referrals: BRADLEY YATES (PCP) MALATHI DONALD MD Apr 13, 2020 11:44
--- NOTE | 2020-04-13 12:18 | RAD ---
AP chest. HISTORY: Weakness AP view was taken of the chest. Heart is normal in size. There is atherosclerotic change in the aorta. There are chronic interstitial infiltrates or fibrosis in the lung bases similar to the study from December 04. A new confluent pneumonia is not identified. There is mild scoliosis. IMPRESSION: 1. Chronic interstitial lung disease. 2. No acute infiltrates. Electronically signed by: Mandeep Pike MD (04/13/2020 12:15 PM) [id number]
[2020-04-13 12:42] LABS: BASO # 0.1 x10^3/uL (0.0-0.2); BASO % 1 % (0-3); EOS # 0.2 x10^3/uL (0.0-0.7); EOS % 3 % (0-3); HEMATOCRIT 20.9 % (36.0-47.0); LYMPH # 1.6 x10^3/uL (1.0-4.8); LYMPH % 21 % (24-48); MEAN CORPUSCULAR HEMOGLOBIN 29 pg (25-35); MEAN CORPUSCULAR HGB CONC 32 g/dL (31-37); MEAN CORPUSCULAR VOLUME 92 fL (79-100); MONO # 0.5 x10^3/uL (0.0-1.1); MONO % 6 % (0-9); NEUT # 5.3 x10^3uL (1.8-7.7); NEUT % 69 % (31-73); PLATELET COUNT 324 x10^3/uL (140-400); RED BLOOD COUNT 2.28 x10^6/uL (3.50-5.40); RED CELL DISTRIBUTION WIDTH 16.7 % (11.5-14.5); WHITE BLOOD COUNT 7.7 x10^3/uL (4.0-11.0)
[2020-04-13 12:45] LABS: HEMOGLOBIN 6.6 g/dL (12.0-15.5)
[2020-04-13 12:53] LABS: ALBUMIN/GLOBULIN RATIO 0.7 (1.0-1.7); CALCIUM 8.8 mg/dL (8.5-10.1); CREATININE 3.4 mg/dL (0.6-1.0); GFR 12.7; TOTAL BILIRUBIN 0.1 mg/dL (0.2-1.0); TOTAL PROTEIN 7.3 g/dL (6.4-8.2)
[2020-04-13 12:57] LABS: POTASSIUM 6.4 mmol/L (3.5-5.1)
[2020-04-13] MEDS ORDERED: INSULIN REGULAR 100 UNIT/ML 3ML VIAL. IV ONE (13:00)
[2020-04-13] MEDS ORDERED: DEXTROSE 50% 25 GM / 50ML DISP.SYRIN. IV ONE (13:00)
[2020-04-13] MEDS ORDERED: CALCIUM GLUCONATE 1,000 MG/10 ML VIAL IV ONE (13:00)
--- NOTE | 2020-04-13 14:14 | EKG ---
[address] [address] Test Date: 2020-04-13 Test Time: 11:55:54 Pat Name: JAYE MOROCHO Department: Room: Gender: F [employer] Vendor: [employer] : [id number] Requested By: MALATHI DONALD Order Number: [id number] Reading MD: Measurements Intervals [place] Rate: 87 P: 36 SD: 150 QRS: -4 QRSD: 78 T: 20 QT: 342 QTc: 412 Interpretive Statements SINUS RHYTHM LEFTWARD AXIS OTHERWISE NORMAL ECG RI6.02 No previous ECG available for comparison
[2020-04-13 15:28] VITALS: BP 125/54
[2020-04-13 15:53] VITALS: BP 108/43
[2020-04-13 16:08] VITALS: BP 108/45
[2020-04-13 16:23] VITALS: BP 120/51
== END 2020-04-13 16:34 | disposition short-term general hospital (02) ==
LOC: ER 11:12
DX: N17.9 Acute kidney failure, unspecified (principal); D64.9 Anemia, unspecified; R53.1 Weakness; E78.00 Pure hypercholesterolemia, unspecified; I10 Essential (primary) hypertension; E03.9 Hypothyroidism, unspecified
CPT/HCPCS: 36415; 36430; 71045; 80053; 84484; 85025; 85610; 86850; 86900; 86901; 86920; 93005; 96374; 96375; 99291; J0610; J1815; P9016

== ENCOUNTER 2020-05-19 14:26 | Emergency (ER) | payer OTHER ==
[~2020-05-19] VITALS: Ht 154.9 cm; Wt 43.2 kg
--- NOTE | 2020-05-19 14:46 | PHYS DOC ---
Past History Past Medical History: Glaucoma, High Cholesterol, Hypertension, Hypothyroid, Renal Failure Past Surgical History: No Surgical History Alcohol Use: None Drug Use: None Adult General Chief Complaint Chief Complaint: ABNORMAL LABS [facility] HPI Patient is a 89-year-old female who is Nepali-speaking only presenting for hyperkalemia. She is here with friend who is serving as primary set up mechanic crown assembly machine. Patient has known history of renal failure and was recently discharged from [facility] for acute on chronic renal failure. While there, " she had a few medication changes, I am not sure what she is on now but I do remember that she takes lisinopril". Reports that she had laboratory analysis drawn 05/17/2020 and had results of high creatinine (2.99) and potassium (6.7) levels and was urged to report immediately to her local ER. Given that patient was Nepali-speaking, she did not entirely understand results communicated to her. It was not until today when her friend discussed phone call with patient that they realize the emergent need to present for urgent evaluation and treatment as indicated. Patient ambulatory on arrival and asymptomatic otherwise. Friend presents with outpatient laboratory analysis paperwork but no other paperwork, it is unknown what her home medication regimen is besides reported lisinopril. Per our EMR, patient has history of taking digoxin. Per questioning, patient and friend cannot recall any other potential medications being taken that could cause hyperkalemia. Review of Systems Review of Systems Fourteen body systems of review of systems have been reviewed. See HPI for pertinent positives and negative responses, other canas all other systems are negative, non-pertinent or non-contributory Allergies Allergies Allergies Coded Allergies Type Severity Reaction Last Updated Verified No Known Drug Allergies 11/14/19 No Physical Exam Physical Exam Constitutional: Well developed, well nourished, no acute distress, non-toxic appearance. HENT: Normocephalic, atraumatic, bilateral external ears normal, oropharynx moist, no oral exudates, nose normal. Eyes: PERRLA, EOMI, conjunctiva normal, no discharge. Neck: Normal range of motion, no tenderness, supple, no stridor. Cardiovascular: Heart rate regular, sinus rhythm, no murmurs rubs or gallops Lungs & Thorax: Bilateral breath sounds clear to auscultation Abdomen: Bowel sounds normal, soft, no tenderness, no masses, no pulsatile masses. Nonsurgical abdomen, no peritoneal signs Skin: Warm, dry, no erythema, no rash. Back: No tenderness, no CVA tenderness. Extremities: No tenderness, no cyanosis, no clubbing, ROM intact, no edema. Neurologic: Alert and oriented X 3, grossly normal motor & sensory function, no focal deficits noted. Psychologic: Affect normal, judgement normal, mood normal. Current Patient Data Vital Signs Vital Signs Date Time Temp Pulse Resp B/P (MAP) Pulse Ox O2 Delivery O2 Flow Rate FiO2 05/19/20 15:00 80 16 150/72 (98) 96 Lab Results Laboratory Tests Test 05/19/20 14:32 05/19/20 14:47 05/19/20 14:48 Bedside Hemoglobin 8.8 gm/dL Bedside Hematocrit 26 % Bedside Sodium 137 mmol/L (135-145) Bedside Potassium 5.4 mmol/L (3.5-5.0) Bedside Chloride 111 mmol/L (98-110) Bedside Total CO2 16 mmol/L (23-32) Anion Gap 16 mmol/L (6-14) Bedside Blood Urea Nitrogen 72 mg/dL (8-26) Bedside Creatinine 3.2 mg/dL (0.5-1.4) Glucose Level 102 mg/dL (60-99) Bedside Ionized Calcium (Vandana) 1.14 mmol/L (1.13-1.32) Bedside Troponin I < 0.08 ng/ml (<0.08) White Blood Count 6.5 x10^3/uL (4.0-11.0) Red Blood Count 2.89 x10^6/uL (3.50-5.40) Hemoglobin 8.8 g/dL (12.0-15.5) Hematocrit 28.0 % (36.0-47.0) Mean Corpuscular Volume 97 fL (79-100) Mean Corpuscular Hemoglobin 31 pg (25-35) Mean Corpuscular Hemoglobin Concent 32 g/dL (31-37) Red Cell Distribution Width 20.5 % (11.5-14.5) Platelet Count 308 x10^3/uL (140-400) Neutrophils (%) (Auto) 69 % (31-73) Lymphocytes (%) (Auto) 20 % (24-48) Monocytes (%) (Auto) 7 % (0-9) Eosinophils (%) (Auto) 3 % (0-3) Basophils (%) (Auto) 1 % (0-3) Neutrophils # (Auto) 4.4 x10^3uL (1.8-7.7) Lymphocytes # (Auto) 1.3 x10^3/uL (1.0-4.8) Monocytes # (Auto) 0.5 x10^3/uL (0.0-1.1) Eosinophils # (Auto) 0.2 x10^3/uL (0.0-0.7) Basophils # (Auto) 0.1 x10^3/uL (0.0-0.2) Platelet Estimate Adequate (ADEQUATE) Platelet Clumps, EDTA Present Poikilocytosis Slight Anisocytosis Mod Phosphorus Level 4.7 mg/dL (2.6-4.7) Magnesium Level 2.5 mg/dL (1.8-2.4) EKG EKG EKG ordered and interpreted by myself at 1448 hrs. as sinus rhythm at 75 bpm, unremarkable intervals, left axis deviation, no obvious ischemic findings, no obvious peaked T waves, no STEMI Radiology/Procedures Radiology/Procedures [] Heart Score HEART Score for Chest Pain: HEART Score for Chest Pain Response (Comments) Value History Slighlty/Non-Suspicious 0 Age > 65 2 Risk Factors >3 Risk Factors or Hx CAD 2 Total 4 Risk Factors: Risk Factors: DM, Current or recent (<one month) smoker, HTN, HLP, family history of CAD, obesity. Risk Scores: Risk Factors: DM, Current or recent (<one month) smoker, HTN, HLP, family hist ory of CAD, obesity. Course & Med Decision Making Course & Med Decision Making Discussed with the patient all findings and diagnostic testing. I discussed most likely diagnosis of hyperkalemia and known renal failure. I called patient's nephrology office at [facility] and discussed case as history was limited due to Nepali-speaking only and accompanying individual did not know entirety of patient's past medical history. Nonetheless, nephrology advised that I treat patients mild hyperkalemia today with Kayexalate and advised her to discontinue home lisinopril blood pressure medication. Patient is to call nephrology office first thing Sunday morning to come in for repeat evaluation and laboratory draw to monitor kidney function and potassium level. I stressed need for close outpatient follow-up to review today's ER visit with patient in Nepali but reiterated importance of this with patient's sister who is Mauritanian speaking and able to fully translate. Strict return precautions were also discussed at length with good understanding by patient and family member. Patient and family member voiced understanding and agreement with the plan. Patient and family member knows to come back for repeat evaluation if concerning signs or symptoms present prior to outpatient follow-up. Hemodynamically stable, ambulatory and well-appearing at time of disposition. Dragon Disclaimer Dragon Disclaimer This electronic medical record was generated, in whole or in part, using a voice recognition dictation system. Departure Departure: Impression: Primary Impression: Hyperkalemia Additional Impression: Chronic renal failure Disposition: 01 DC HOME SELF CARE/HOMELESS Condition: STABLE Referrals: BRDALEY YATES (PCP) Patient Instructions: Hyperkalemia Additional Instructions: As discussed prior to ER departure, please stop your lisinopril medication which is for blood pressure. I would advise you to keep a blood pressure log daily in the meantime. You are to call your computer programmer analyst based out of [facility] ([address] [place] [phone], ) first thing Sunday morning to schedule same-day evaluation and lab draw to monitor your potassium and overall kidney function. Any concerning signs or symptoms present prior to outpatient follow-up please do not hesitate to come back to the ER for repeat evaluation as we understand outpatient follow- up will be difficult with the upcoming holiday. It was a pleasure to take care of you and I wish you the best going forward Problem Qualifiers MACKENZIE HARVEY DO May 19, 2020 14:46
--- NOTE | 2020-05-19 14:50 | EKG ---
[address] [address] Test Date: 2020-05-19 Test Time: 14:43:58 Pat Name: JAYE HENDERSON Department: Room: Gender: F House Superintendent: CELSO : [id number] Requested By: MACKENZIE HARVEY Order Number: [id number] Reading MD: Measurements Intervals [place] Rate: 75 P: 36 FL: 154 QRS: -9 QRSD: 72 T: 2 QT: 374 QTc: 420 Interpretive Statements SINUS RHYTHM LEFTWARD AXIS QRS(T) CONTOUR ABNORMALITY CONSIDER INFERIOR MYOCARDIAL DAMAGE POSSIBLY ABNORMAL ECG RI6.02 No previous ECG available for comparison
[2020-05-19 15:00] VITALS: BP 150/72
[2020-05-19 15:04] LABS: BASO # 0.1 x10^3/uL (0.0-0.2); BASO % 1 % (0-3); EOS # 0.2 x10^3/uL (0.0-0.7); EOS % 3 % (0-3); HEMOGLOBIN 8.8 g/dL (12.0-15.5); LYMPH # 1.3 x10^3/uL (1.0-4.8); LYMPH % 20 % (24-48); MEAN CORPUSCULAR HEMOGLOBIN 31 pg (25-35); MEAN CORPUSCULAR HGB CONC 32 g/dL (31-37); MEAN CORPUSCULAR VOLUME 97 fL (79-100); MONO # 0.5 x10^3/uL (0.0-1.1); MONO % 7 % (0-9); NEUT # 4.4 x10^3uL (1.8-7.7); NEUT % 69 % (31-73); PLATELET COUNT 308 x10^3/uL (140-400); RED BLOOD COUNT 2.89 x10^6/uL (3.50-5.40); RED CELL DISTRIBUTION WIDTH 20.5 % (11.5-14.5); WHITE BLOOD COUNT 6.5 x10^3/uL (4.0-11.0)
[2020-05-19 15:32] LABS: HEMOGLOBIN ISTAT 8.8 gm/dL; POTASSIUM ISTAT 5.4 mmol/L (3.5-5.0)
[2020-05-19] MEDS ORDERED: SODIUM POLYSTYRENE SULFONATE 15 GM/60 ML ORAL.SUSP. PO ONE (16:45)
[2020-05-19 17:01] LABS: MAGNESIUM 2.5 mg/dL (1.8-2.4); PHOSPHORUS 4.7 mg/dL (2.6-4.7)
[2020-05-19 22:06] LABS: ANISOCYTOSIS MOD; PLT ESTIMATE ADEQUATE (ADEQUATE); POIKILOCYTOSIS SLIGHT
[2020-05-19 22:07] LABS: PLATELET CLUMP PRESENT
== END 2020-05-19 17:04 | disposition home or self-care (01) ==
LOC: ER 14:26
DX: E87.5 Hyperkalemia (principal); I12.9 Hypertensive chronic kidney disease with stage 1 through stage 4 chronic kidney disease, or unspecified chronic kidney disease; N18.9 Chronic kidney disease, unspecified; E78.00 Pure hypercholesterolemia, unspecified; E03.9 Hypothyroidism, unspecified
CPT/HCPCS: 36415; 80047; 83735; 84100; 84484; 85025; 93005; 99284

== ENCOUNTER 2020-06-15 11:32 | Inpatient (IN) | payer OTHER ==
[2020-06-15] VITALS (11 sets, daily range): BP systolic 100–148; BP diastolic 58–75
[~2020-06-15] VITALS: Ht 149.9 cm; Wt 38.5 kg
[~2020-06-15 11:32] MED LIST changes: -FURO20TA3 PO; -PRED5DRO20 OP
[2020-06-15] MEDS ORDERED: PRED5DRO20 OP (12:20)
[2020-06-15] MEDS ORDERED: FURO20TA3 PO (12:20)
[2020-06-15] MEDS ORDERED: SODIUM BICARBONATE IVF 150 MEQ in IV DEXTROSE 5% 1,000 ML IV SCH (14:00)
--- NOTE | 2020-06-15 14:05 | RAD ---
AP portable chest radiograph 06/15/2020 Clinical History: Worsening shortness of breath. An AP erect portable digital radiograph of the chest was obtained. Comparison study is dated 04/13/2020. The cardiac silhouette is borderline enlarged. The thoracic aorta is tortuous. Atherosclerotic calcif ication of the thoracic aorta is seen. Areas of honeycombing are again seen involving both lower lobe s. A peripheral opacity which likely represents a focal infiltrate is seen involving the lateral aspe ct of the left mid lung. This measures approximately 9.5 cm in size. No pneumothorax or pleural effus ion is seen. The osseous structures are unchanged. A small threaded screw is seen within the right hu meral head. IMPRESSION: Left midlung infiltrate. Electronically signed by: Abdirahman Rg MD (06/15/2020 2:02 PM) [id number]
[2020-06-15] MEDS ORDERED: VANCOMYCIN PER PHARMACY MC PRN (14:45)
[2020-06-15] MEDS ORDERED: ACETAMINOPHEN 325 MG TABLET PO PRN (14:45)
--- NOTE | 2020-06-15 14:53 | HP ---
ADMIT DATE: 06/15/2020 HISTORY OF PRESENT ILLNESS: The patient is an 89-year-old female patient who lives in a house with another 4 sisters who was admitted directly from her primary care physician clinic on account of increasing shortness of breath and marked anemia. Her H and H was 5.5 and 17.8; however, her white cell count and platelets were normal. She also complained of shortness of breath that started about 2 days ago. Denied any chest pain. She had had cough, which is mostly dry. Initial evaluation showed that she has hyperkalemia and acute on chronic kidney injury. Her creatinine was 3.1 and her BUN was 64. She has also marked metabolic acidosis with a bicarbonate of only 15. Her chest x-ray showed the cardiac silhouette is borderline enlarged, the thoracic aorta is tortuous. She has atherosclerotic calcification of thoracic aorta is seen areas of honeycombing or again seen involving both lower lobes, peripheral opacity, which likely represents a focal infiltrate is seen involving the lateral aspect of the left mid lung. This measures approximately 9.5 cm in size, no pneumothorax or pleural effusion is seen. The osseous structures are unchanged. A small threaded screw is seen within the right humeral head. The patient was admitted with acute blood loss anemia, acute on chronic kidney injury with marked metabolic acidosis and healthcare-associated pneumonia. We did start her on a bicarbonate drip. We have typed and crossed and we will transfuse 2 units of packed RBCs and would start her also on IV antibiotic in the form of Zosyn and vancomycin for healthcare-associated pneumonia. PAST MEDICAL HISTORY: Significant for hypertension, hyperlipidemia, hypothyroidism. She is also known to have glaucoma and idiopathic pulmonary fibrosis. She has also known to have atrial fibrillation, rate controlled, but she is not a candidate for anticoagulation given the anemia and had had an episode of blood loss anemia before. PAST SURGICAL HISTORY: Significant for left ankle fracture, status post open reduction and internal fixation in 2015. ALLERGIES: She has no known drug allergies. FAMILY HISTORY: She has 2 sisters and 2 brothers, all younger than her, one of her sisters is nun, the others are . She has 2 brothers, both live in [place], one has coronary artery disease, the younger one has diabetes. Her father at the age of 90. Mother at age of 69. 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 SOCIAL HISTORY: She does not smoke, drink alcohol or use any recreational drugs. PHYSICAL EXAMINATION: GENERAL: When I examined her this afternoon on arrival, she was clearly pale, cachectic, tachypneic, but there is no jaundice, cyanosis or thyromegaly. No jugular venous distention. No limb edema. VITAL SIGNS: Her heart rate was 108, blood pressure was 148/62, temperature was 97.7, respiratory rate 24 and oxygen saturation was 96% on 2 liters of oxygen. HEAD, EYES, EARS, NOSE AND THROAT: Showed normocephalic and atraumatic. NECK: Supple. HEART: Normal first and second heart sounds. No gallop or murmur. CHEST: Clear to auscultation. No crepitation or rhonchi. ABDOMEN: Distended, soft, nontender. NEUROLOGIC: She was awake, alert, responding appropriately. All cranial nerves intact. EXTREMITIES: She moves extremities without difficulty. She has marked muscle wasting and weakness. LABORATORY DATA: Showed a white cell count of 6900, hemoglobin 5.5, hematocrit 17.8, MCV 107 and platelet count 319,000 with a manual differential showed 86% polymorphs, 6% lymphocytes, 7% monocytes. Her chemistry showed a serum sodium 135, potassium 5.1, chloride 105, bicarbonate 15, anion gap of 15, BUN 64, creatinine 3.1, estimated GFR was 14 mL per minute. Her glucose was 153, calcium was 7.8. Total bilirubin, AST, ALT, alkaline phosphatase were normal. Total protein 6.8, albumin was 2.3. Her chest x-ray showed the patient has areas of honeycombing are seen involving both lower lobes of peripheral opacity, likely represents a focal infiltrate is seen involving the lateral aspect of the left mid lung. This measures approximately 9.5 cm in size, no pneumothorax or pleural effusion is seen. The osseous structures are unchanged. A small threaded screws seen within the right humeral head. 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 She was found to be anemic with hemoglobin and hematocrit of 5.5 and 17.8. She has also acute on chronic kidney injury and marked metabolic acidosis. Her chest x-ray showed that she has pulmonary fibrosis as well as left lung infiltrate. The patient will type and cross and transfuse 2 units of packed RBCs. We will start her on IV antibiotic for healthcare-associated pneumonia. I did start her also on bicarbonate drip given that she was probably acidotic and has Kussmaul breathing. I will also check all her hematinics including serum iron, TIBC, serum ferritin and B12, we will check also stool for occult blood. DYLAN BENÍTEZ MD DR: PURA/kulwinder JOB#: [id number] / [id number]
[2020-06-15] MEDS: DIGOXIN 125 MCG TABLET PO SCH (15:00)
[2020-06-15] MEDS ORDERED: VANCOMYCIN 500 MG in IV NORMAL SALINE 100ML 100 ML IV ONE (15:00)
[2020-06-15] MEDS: prednisoLONE ACETATE 1% OPHTH SUSPENSION 5ML BOTTLE. OU SCH ×2 (17:00→20:58)
[2020-06-15] MEDS: PIPERACILLIN/TAZOBACTAM 2.25 GM in IV NORMAL SALINE 50ML 50 ML IV SCH (19:50)
[2020-06-15] MEDS: FERROUS SULFATE 325 MG TABLET. PO SCH (20:58)
[2020-06-15] MEDS: CEVIMELINE HCL PO SCH ×2 (20:58→21:13)
[2020-06-15] MEDS: ASCORBIC ACID 500 MG TABLET PO SCH (20:58)
[2020-06-16] MEDS: PIPERACILLIN/TAZOBACTAM 2.25 GM in IV NORMAL SALINE 50ML 50 ML IV SCH ×5 (00:35→23:54)
[2020-06-16 05:02] VITALS: BP 108/65
[2020-06-16] MEDS: LEVOTHYROXINE 50 MCG TABLET PO SCH (05:40)
[2020-06-16 06:21] LABS: HEMATOCRIT 24.7 % (36.0-47.0); HEMOGLOBIN 8.3 g/dL (12.0-15.5); RED BLOOD COUNT 2.68 x10^6/uL (3.50-5.40); WHITE BLOOD COUNT 4.9 x10^3/uL (4.0-11.0)
[2020-06-16 06:31] LABS: ALBUMIN 1.8 g/dL (3.4-5.0); ALBUMIN/GLOBULIN RATIO 0.5 (1.0-1.7); CALCIUM 7.2 mg/dL (8.5-10.1); CREATININE 2.6 mg/dL (0.6-1.0); GFR 17.4; POTASSIUM 3.5 mmol/L (3.5-5.1); TOTAL BILIRUBIN 0.6 mg/dL (0.2-1.0); TOTAL PROTEIN 5.5 g/dL (6.4-8.2)
[2020-06-16] MEDS: PANTOPRAZOLE 40 MG TABLET. PO SCH (08:08)
--- NOTE | 2020-06-16 08:08 | PN ---
DATE: 06/16/2020 ATTENDING PHYSICIANS: Dr. Alcala and Dr. Singh. SUBJECTIVE: The patient is calm. She is alert. She denied any distress. Her weakness is better after transfusion. OBJECTIVE FINDINGS: VITAL SIGNS: Blood pressure today is 108/65, pulse is 81 and regular, temperature 98.2 degrees Fahrenheit, oxygen saturation 98% on 2 liters of nasal cannula. HEENT: Head is without trauma. Pupils are reactive. Sclerae nonicteric. Oropharynx clear. NECK: Supple, no bruits. LUNGS: Minimal crackles at the left base. CARDIOVASCULAR: Showed regular heart tones. No gallops. ABDOMEN: Soft. EXTREMITIES: Without edema. NEUROLOGIC: Focally intact. She still is somewhat weak. I did not assess her gait. LABORATORY DATA: Hemoglobin this morning is improved and up to 8.3 g/dL, the white count is 4900. Chemistry panel: Potassium is now back to 3.5 mEq per liter, gap is 12, creatinine is down to 2.6 mg percent, BUN is 52 mg/dL. ASSESSMENT: 1. 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 2. Chronic kidney disease stage 4. Creatinine is slightly better. 3. Anemia of chronic disease. 4. Metabolic acidosis, resolved. 5. Incidental finding of infiltrate in the left mid lung field consistent with community-acquired pneumonia. PLAN: 1. Continue intravenous Zosyn as ordered. 2. We can discontinue her vancomycin, I do not think this is necessary. 3. We can discontinue her bicarbonate drip. 4. Serial chemistries and CBC. 5. Continue iron therapy. 6. Diet as tolerated. 7. I shall ascertain her code status from the ____. MELLO SINGH MD DR: MISSY/kulwinder JOB#: [id number] / [id number]
[2020-06-16] MEDS: DIGOXIN 125 MCG TABLET PO SCH (08:09)
[2020-06-16] MEDS: prednisoLONE ACETATE 1% OPHTH SUSPENSION 5ML BOTTLE. OU SCH ×4 (08:09→20:36)
[2020-06-16] MEDS: CEVIMELINE HCL PO SCH ×3 (08:09→20:36)
[2020-06-16] MEDS: ASCORBIC ACID 500 MG TABLET PO SCH ×2 (08:09→20:36)
[2020-06-16] MEDS: FERROUS SULFATE 325 MG TABLET. PO SCH ×2 (08:09→20:36)
[2020-06-16] MEDS ORDERED: CITALOPRAM 20 MG TABLET. PO SCH (09:00)
[2020-06-16 10:43] VITALS: BP 102/49
[2020-06-16 15:00] VITALS: BP 115/63
[2020-06-16 19:47] VITALS: BP 108/61
[2020-06-16] MEDS ORDERED: ONDANSETRON PF 4 MG/2 ML VIAL. IVP PRN (22:15)
[2020-06-16] MEDS ORDERED: ONDANSETRON ODT 4 MG TAB.RAPDIS PO PRN (22:15)
[2020-06-16 23:06] VITALS: BP 145/75
[2020-06-17 05:59] VITALS: BP 101/60
[2020-06-17] MEDS: PIPERACILLIN/TAZOBACTAM 2.25 GM in IV NORMAL SALINE 50ML 50 ML IV SCH (06:05)
[2020-06-17] MEDS: LEVOTHYROXINE 50 MCG TABLET PO SCH (06:05)
[2020-06-17] MEDS: FERROUS SULFATE 325 MG TABLET. PO SCH (08:04)
[2020-06-17] MEDS: PANTOPRAZOLE 40 MG TABLET. PO SCH (08:04)
[2020-06-17] MEDS: DIGOXIN 125 MCG TABLET PO SCH (08:04)
[2020-06-17] MEDS: CEVIMELINE HCL PO SCH (08:05)
[2020-06-17] MEDS: prednisoLONE ACETATE 1% OPHTH SUSPENSION 5ML BOTTLE. OU SCH (08:05)
[2020-06-17] MEDS: ASCORBIC ACID 500 MG TABLET PO SCH (08:05)
--- NOTE | 2020-06-17 09:14 | DS ---
DATE OF DISCHARGE: 06/17/2020 ATTENDING PHYSICIANS: Dr. Alcala and Dr. Singh. FINAL DISCHARGE DIAGNOSES: 1. Symptomatic anemia. 2. Transfusion of 2 units of red blood cells and increase oxygen carrying capacity in this symptomatic patient. 3. Infiltrate on x-ray suggestive of community-acquired pneumonia. 4. Essential hypertension. 5. Glaucoma. 6. Idiopathic pulmonary fibrosis. 7. Paroxysmal atrial fibrillation. 8. Generalized debilitation. 9. History of ankle fracture. 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 She was found to have a hemoglobin of 5.5 g/dL, hematocrit of 17%, white count and platelets were normal. There is no active bleeding site. She also has chronic kidney disease. Admission creatinine was 3.1 mg percent. PHYSICAL EXAMINATION: Please see the dictated note. PERTINENT LABORATORY AND X-RAY STUDIES: After 2 units of packed red cells were infused, her followup hemoglobin next day came up to 8.3 g/dL. She felt better. Her chemistry panel showed an improvement in her creatinine, it came down to 2.6 mg percent with a BUN of 52. Electrolytes are within normal range. Her iron studies were low. She will continue supplemental iron. Serum iron was 13, TIBC ____, iron saturation was 7, ferritin level is high due to ferritin being an acute phase reactant and does not reflect on the iron stores. COURSE IN THE HOSPITAL: The patient was admitted. She was started on empiric antibiotics in addition to her iron therapy. She did fairly well. Followup hemoglobin was improved. I reviewed the chest x-ray, there is ever small amount of infiltrate in the left lateral lung. On the third hospital day, her vital signs are stable. She had a normal temperature of 98.3 degrees Fahrenheit. Her blood pressure was fluctuating between 101-145 mmHg systolic and her oxygen saturations were 93% on room air. She did well. Her lungs were actually clear with good air movement. At this time, she is ready for discharge home. I recommended 7 more days of Augmentin 875/125 b.i.d. for 7 more days. In addition, she will continue her digoxin, cholecalciferol, Lexapro, ferrous sulfate and vitamin C, 20 mg of Lasix, Synthroid, and Protonix dose unchanged along with her prednisolone acetate eyedrops. She does have paroxysmal atrial fibrillation. She was deemed not to be a candidate for anticoagulation due to her chronic anemia, I certainly agree with this plan. Her prognosis is guarded. The patient was then discharged from our hospital in stable condition with followup visit and recheck chemistry at the scheduled time. Total discharge time spent 39 minutes. MELLO SINGH MD DR: MISSY/kulwinder JOB#: [id number] / [id number] BRADLEY Cheek
[2020-06-17 10:43] VITALS: BP 144/75
[2020-06-17] MEDS ORDERED: VANCOMYCIN RANDOM LEVEL. MC ONE (15:00)
[2020-06-17] MEDS ORDERED: LACTOBACILLUS RHAMNOSUS GG 1 CAPSULE. PO SCH (21:00)
[2020-06-22] MEDS ORDERED: CHOLECALCIFEROL 10000 UNIT PO SCH (09:00)
== END 2020-06-17 11:44 | disposition home or self-care (01) | DRG 811 ==
LOC: 1 SOUTH 11:51
PROVIDERS: ADMIT Internal Medicine; ATTEND Internal Medicine
PROC: 30233N1 Transfusion of Nonautologous Red Blood Cells into Peripheral Vein, Percutaneous Approach (ICD-10-PCS; principal; 2020-06-15)
DX: D62 Acute posthemorrhagic anemia (principal); J18.9 Pneumonia, unspecified organism; N17.9 Acute kidney failure, unspecified; E87.2 Acidosis; N18.4 Chronic kidney disease, stage 4 (severe); Z20.822 Contact with and (suspected) exposure to COVID-19; E78.5 Hyperlipidemia, unspecified; E03.9 Hypothyroidism, unspecified; I12.9 Hypertensive chronic kidney disease with stage 1 through stage 4 chronic kidney disease, or unspecified chronic kidney disease; H40.9 Unspecified glaucoma; Y95 Nosocomial condition; D63.8 Anemia in other chronic diseases classified elsewhere; I48.0 Paroxysmal atrial fibrillation; R53.81 Other malaise; J84.112 Idiopathic pulmonary fibrosis; E87.5 Hyperkalemia; Z83.3 Family history of diabetes mellitus; Z82.49 Family history of ischemic heart disease and other diseases of the circulatory system
CPT/HCPCS: 36415; 71045; 80053; 82607; 82728; 83540; 83550; 85027; 86850; 86900; 86901; 86920; 87426; J2543; J3370; P9016; U0003

== ENCOUNTER → 2020-06-15 | Outpatient (CLI) | payer OTHER ==
[2020-05-19 15:00] VITALS: BP 150/72
[~2020-06-15] MED LIST changes: +FURO20TA3 PO; +PRED5DRO20 OP
[2020-06-15 12:09] LABS: BASO % 1 % (0-3); EOS % 0 % (0-3); LYMPH # 0.4 x10^3/uL (1.0-4.8); LYMPH % 6 % (24-48); MEAN CORPUSCULAR HEMOGLOBIN 33 pg (25-35); MEAN CORPUSCULAR HGB CONC 31 g/dL (31-37); MEAN CORPUSCULAR VOLUME 107 fL (79-100); MONO # 0.5 x10^3/uL (0.0-1.1); MONO % 7 % (0-9); NEUT # 5.9 x10^3uL (1.8-7.7); NEUT % 86 % (31-73); PLATELET COUNT 319 x10^3/uL (140-400); RED BLOOD COUNT 1.66 x10^6/uL (3.50-5.40); WHITE BLOOD COUNT 6.9 x10^3/uL (4.0-11.0)
[2020-06-15 12:16] LABS: HEMATOCRIT 17.8 % (36.0-47.0); HEMOGLOBIN 5.5 g/dL (12.0-15.5)
[2020-06-15 12:37] LABS: ALBUMIN 2.3 g/dL (3.4-5.0); ALBUMIN/GLOBULIN RATIO 0.5 (1.0-1.7); CALCIUM 7.8 mg/dL (8.5-10.1); CREATININE 3.1 mg/dL (0.6-1.0); GFR 14.2; POTASSIUM 5.1 mmol/L (3.5-5.1); TOTAL BILIRUBIN 0.1 mg/dL (0.2-1.0); TOTAL PROTEIN 6.8 g/dL (6.4-8.2)
== END ==
LOC: PMG 11:12
PROVIDERS: ATTEND Physician Assistant Medical
DX: D64.9 Anemia, unspecified (principal)
CPT/HCPCS: 36415; 80053; 85025

== ENCOUNTER → 2020-07-29 | Outpatient (CLI) | payer OTHER ==
[~2020-07-29] MED LIST changes: +ERGO800010 PO; +FURO20TA3 PO; +LOSA50TA3 PO; +PRED5DRO20 OP
[2020-07-29 17:04] LABS: ALBUMIN 2.4 g/dL (3.4-5.0); ALBUMIN/GLOBULIN RATIO 0.5 (1.0-1.7); CALCIUM 8.1 mg/dL (8.5-10.1); CREATININE 2.4 mg/dL (0.6-1.0); GFR 19.1; POTASSIUM 5.1 mmol/L (3.5-5.1); TOTAL BILIRUBIN 0.1 mg/dL (0.2-1.0); TOTAL PROTEIN 7.1 g/dL (6.4-8.2)
--- NOTE | 2020-07-29 17:51 | RAD ---
Chest, One View: History: Chronic cough. Technique: AP view of the chest was obtained Comparison: 06/15/2020. Findings/ impression: Technique accentuates heart size and pulmonary vascularity. Moderate prominent appearing bilateral in terstitial lung markings likely chronic interstitial changes with mild bibasilar lung atelectasis or infiltrates. Electronically signed by: Franky Irwin MD (07/29/2020 5:49 PM) [id number]
[2020-07-30 13:48] LABS: FREE T4 1.07 ng/dL (0.76-1.46); THYROID STIM HORMONE (TSH) 5.019 uIU/mL (0.358-3.740)
== END ==
LOC: PMG 15:49
PROVIDERS: ATTEND Physician Assistant
DX: R05 Cough (principal); I12.9 Hypertensive chronic kidney disease with stage 1 through stage 4 chronic kidney disease, or unspecified chronic kidney disease; R60.0 Localized edema; N18.30 Chronic kidney disease, stage 3 unspecified; E03.9 Hypothyroidism, unspecified; D50.0 Iron deficiency anemia secondary to blood loss (chronic)
CPT/HCPCS: 36415; 71046; 80053; 80061; 83880; 84439; 84443

== ENCOUNTER 2020-07-30 16:20 | Observation (INO) | payer OTHER ==
[2020-07-30] VITALS (8 sets, daily range): BP systolic 109–161; BP diastolic 52–67
[~2020-07-30] VITALS: Ht 154.9 cm; Wt 42.2 kg
[~2020-07-30 16:20] MED LIST changes: -ERGO800010 PO; -LOSA50TA3 PO
[2020-07-30] MEDS ORDERED: diphenhydrAMINE ORAL ELIXIR 12.5 MG/5 ML ML PO PRN (17:00)
[2020-07-30] MEDS ORDERED: ACETAMINOPHEN 325 MG TABLET PO PRN (17:00)
--- NOTE | 2020-07-30 17:41 | NUR ---
PATIENT IS A 89 Y O FEMALE , DIRECT ADMIT BY DR. SINGH FROM CLINIC FOR BLOOD TRANSFUSION. PATIENT IS CALM AND PLEASANT UPON ASSESSMENT, A/O X3 , SOA, C/O TENDERNESS AND MILD PAIN IN HER LOWER EXTREMITIES. PATIENT IS CURRENTLY IN A BED EATING DINNER. PATIENT WAS ORIENTED TO ROOM AND HOSPITAL POLICIES, PATIENT VERBALIZED UNDERSTANDING.
[2020-07-30] MEDS ORDERED: CEVI30CA11 PO (18:19)
[2020-07-30] MEDS ORDERED: LEVO50TA5 PO (18:20)
[2020-07-30 18:32] LABS: BASO # 0.1 x10^3/uL (0.0-0.2); BASO % 1 % (0-3); EOS # 0.3 x10^3/uL (0.0-0.7); EOS % 4 % (0-3); LYMPH # 1.5 x10^3/uL (1.0-4.8); LYMPH % 19 % (24-48); MEAN CORPUSCULAR HEMOGLOBIN 30 pg (25-35); MEAN CORPUSCULAR HGB CONC 30 g/dL (31-37); MEAN CORPUSCULAR VOLUME 100 fL (79-100); MONO # 0.5 x10^3/uL (0.0-1.1); MONO % 7 % (0-9); NEUT # 5.4 x10^3uL (1.8-7.7); NEUT % 69 % (31-73); PLATELET COUNT 435 x10^3/uL (140-400); RED BLOOD COUNT 1.81 x10^6/uL (3.50-5.40); RED CELL DISTRIBUTION WIDTH 17.9 % (11.5-14.5); WHITE BLOOD COUNT 7.7 x10^3/uL (4.0-11.0)
[2020-07-30 18:38] LABS: HEMOGLOBIN 5.4 g/dL (12.0-15.5)
[2020-07-30 18:39] LABS: HEMATOCRIT 18.1 % (36.0-47.0)
[2020-07-30] MEDS ORDERED: FUROSEMIDE 40 MG/4 ML VIAL IVP ONE (20:30)
--- NOTE | 2020-07-30 21:09 | NUR ---
Nursing note: Blood transfusion started at 2003. Tubing primed with normal saline and then primed with blood. Transfusion started at 60mL, patient monitored closely x15 min. Reaction noted, R lung crackles and increased cough. VS as noted. Called Dr. Scales, who ordered 60mg lasix now x1 and restart blood. IVP lasix given, this RN stayed with pt for additional 15min, lungs at baseline and cough decreased to pt baseline. Will continue to monitor.
[2020-07-30] MEDS ORDERED: LOSA50TA3 PO (21:31)
[2020-07-30] MEDS ORDERED: ERGO800010 PO (21:31)
[2020-07-30] MEDS ORDERED: DULO30CA2 PO (21:31)
[2020-07-30] MEDS ORDERED: HYDR200T5 PO (21:31)
[2020-07-30] MEDS ORDERED: DULoxetine HCL 30 MG CAPSULE.DR PO SCH (21:45)
--- NOTE | 2020-07-31 00:03 | NUR ---
Nursing note: Blood transfusion started at 2344. Tubing primed with normal saline and then primed with blood. Transfusion started at 60mL/hr, patient monitored closely x15min. No reaction noted, transfusion increased to 100mL/hr. VSS, will continue to monitor.
[2020-07-31 00:55] VITALS: BP 116/61
[2020-07-31 01:55] VITALS: BP 118/66
[2020-07-31 02:30] VITALS: BP 130/66
[2020-07-31 03:10] LABS: HEMATOCRIT 26.1 % (36.0-47.0); HEMOGLOBIN 8.4 g/dL (12.0-15.5)
[2020-07-31 03:32] VITALS: BP 117/63
--- NOTE | 2020-07-31 03:38 | NUR ---
Nursing note: Pt second blood transfusion stopped at 0230. VS and assessment charted. Pt UOP as recorded, resting comfortably in bed at this time. Hgb resulted at 8.4.
[2020-07-31] MEDS ORDERED: LEVOTHYROXINE 50 MCG TABLET PO SCH (06:00)
[2020-07-31 06:05] VITALS: BP 130/54
[2020-07-31] MEDS ORDERED: ACETAMINOPHEN 325 MG TABLET PO PRN (08:30)
--- NOTE | 2020-07-31 08:49 | DS ---
DATE OF DISCHARGE: 07/31/2020 ATTENDING PHYSICIAN: Dr. Singh. FINAL DISCHARGE DIAGNOSES: 1. Symptomatic anemia. 2. Acute on chronic kidney disease. 3. Paroxysmal atrial fibrillation. 4. Anemia of chronic disease. 5. Anorexia. 6. Acute on chronic diastolic congestive heart failure, compensated. 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 Her hemoglobin dropped to 5.4 mg/dL. She was symptomatic and weak, mild exacerbation of heart failure. She was admitted then for transfusion and symptomatically, she is a DNR. PHYSICAL EXAMINATION: Please see my dictated note. PERTINENT LABORATORY AND X-RAY STUDIES: Admission hemoglobin was 5.4 g/dL with a white count of 7700, hematocrit 18%, two units of packed red cells were ordered, transfused on the next day, her hemoglobin came up to 8.4 g/dL with hematocrit of 26%. Clinically, she felt better. COURSE IN THE HOSPITAL: The patient was admitted. She had mild exacerbation of congestive heart failure due to severe anemia and high output failure. Lasix was administered in between units. She tolerated well. By the next morning when I saw her, she had ____. Blood pressure was improved. Lungs, minimal crackles at the bases, which is chronic. She was afebrile and her oxygen saturations were 97% on room air. Therefore, she is discharged back home for comfort measures at the [facility], there were relatively younger guns are in the process of taking care of her during her final days. Her home meds are unchanged, they include the following: She will continue her Tylenol, vitamin C, cholecalciferol, Digitalis 125 mcg daily, Cymbalta, vitamin D2, ferrous sulfate, hydroxychloroquine, Synthroid, losartan, Protonix, and prednisolone eye drops. Her prognosis is guarded. She was discharged then from our hospital in stable condition with explicit instructions and followup care. MELLO SINGH MD DR: MISSY/kulwinder JOB#: [id number] / [id number] BRADLEY Cheek
[2020-07-31] MEDS ORDERED: ACETAMINOPHEN 500 MG TABLET PO PRN ×2 (09:00)
--- NOTE | 2020-07-31 09:27 | HP ---
ADMIT DATE: 07/30/2020 ATTENDING PHYSICIAN: Dr. Singh. CHIEF COMPLAINT: Symptomatic anemia. 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 She has chronic anemia. Etiology is unclear. I suspect bone marrow failure. She has had supposedly endoscopies in the past without any active bleeding. Her hemoglobin dropped to 5.4 g/dL with a hematocrit of 18%. She was very weak and tired. She was sent here for a transfusion of packed red cells and increase oxygen carrying capacity in this symptomatic patient. PAST MEDICAL HISTORY: Significant for chronic anemia requiring transfusions in the past, she has had GI workup, but does not want any further endoscopy. She also has underlying dementia and degenerative arthritis. There is a history of paroxysmal atrial fibrillation, chronic kidney disease, sensorineural hearing loss and essential hypertension. CURRENT MEDICINES: Reviewed from the correction. She takes Tylenol, vitamin C, vitamin D3, Digitalis, Cymbalta, vitamin D2, ferrous sulfate, hydroxychloroquine, Synthroid, losartan, Protonix, and prednisolone eyedrops. ALLERGIES: She has no known drug allergies. SOCIAL HISTORY: Nonsmoker, nondrinker. FAMILY HISTORY: Noncontributory. REVIEW OF SYSTEMS: Significant for the chronic anemia. She denied any nausea, vomiting, hematemesis. She has some mild pedal edema. All other systems reviewed and turned to be negative. PHYSICAL EXAMINATION: GENERAL: When I saw her, this is a pleasant elderly female. INITIAL VITAL SIGNS: Showed a blood pressure of 130/54, pulse 78 and regular, temperature 97.3 degrees Fahrenheit. She was afebrile, oxygen saturation 97% on room air. HEENT: Head is without trauma. Pupils are reactive. Sclerae nonicteric. Oropharynx is clear. NECK: Supple, no bruits identified. LUNGS: Minimal crackles at bases. CARDIOVASCULAR: Showed regular rhythm. No obvious gallops. Peripheral pulses palpable weak. ABDOMEN: Soft, scaphoid, nontender, no organomegaly. EXTREMITIES: Show trace edema. NEUROLOGIC: Focally intact. SKIN: Pale and cool. LABORATORY DATA: Yesterday, her hemoglobin was down to 5.4 g/dL with a white count of 7700, platelets are adequate. ASSESSMENT: 1. 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 2. Underlying dementia. 3. Hypertension. 4. Paroxysmal atrial fibrillation. PLAN: 1. Observation status. 2. Transfusion of packed red cells to increase oxygen carrying capacity in this symptomatic patient. 3. Continue some home meds. 4. Diet as tolerated. 5. Follow up CBC in the morning. MELLO SINGH MD DR: MISSY/kulwinder JOB#: [id number] / [id number] BRADLEY Cheek
== END 2020-07-31 10:16 | disposition home or self-care (01) ==
LOC: 1 SOUTH 16:20
PROVIDERS: ADMIT Hospitalist; ATTEND Hospitalist
DX: D63.8 Anemia in other chronic diseases classified elsewhere (principal); F02.80 Dementia in other diseases classified elsewhere, unspecified severity, without behavioral disturbance, psychotic disturbance, mood disturbance, and anxiety; I13.0 Hypertensive heart and chronic kidney disease with heart failure and stage 1 through stage 4 chronic kidney disease, or unspecified chronic kidney disease; I50.33 Acute on chronic diastolic (congestive) heart failure; N18.9 Chronic kidney disease, unspecified; I48.0 Paroxysmal atrial fibrillation; M19.90 Unspecified osteoarthritis, unspecified site; R63.0 Anorexia; Z68.1 Body mass index [BMI] 19.9 or less, adult
CPT/HCPCS: 36415; 36430; 85014; 85018; 85025; 86850; 86900; 86901; 86920; 96374; G0378; G0379; J1940; P9016

== ENCOUNTER 2020-08-12 14:03 | Observation (INO) | payer OTHER ==
[~2020-08-12] VITALS: Ht 154.9 cm; Wt 42.2 kg
[2020-08-12] VITALS (10 sets, daily range): BP systolic 117–163; BP diastolic 62–96
[~2020-08-12 14:03] MED LIST changes: +ERGO800010 PO; +LOSA50TA3 PO
--- NOTE | 2020-08-12 14:39 | PHYS DOC ---
Past History Past Medical History: Anemia, CHF, High Cholesterol, Renal Disease Past Surgical History: Other Additional Past Surgical Histo: coloscopy last april (? date) Alcohol Use: None Drug Use: None Adult General Chief Complaint Chief Complaint: ABNORMAL LABS [facility] HPI Patient is a 89-year-old female presenting with advocate who presents for symptomatic anemia. This is an acute on chronic phenomenon. She was recently discharged from our facility ~2 weeks ago after being admitted for symptomatic anemia requiring blood transfusion. Patient followed up with her transporter radiology at an yesterday and results came back today with hemoglobin of 6.2. Discussion was had with her transporter radiology and given that patient was experiencing fatigue, it was recommended she present to our facility for admission and transfusion. Patient denies no other changes in baseline health. Does admit to starting tramadol yesterday for generalized pain, states this has helped her musculoskeletal pain and enabled her to get a better night sleep yesterday. She is DNR status at this time Review of Systems Review of Systems Fourteen body systems of review of systems have been reviewed. See HPI for pertinent positives and negative responses, other canas all other systems are negative, non-pertinent or non-contributory Allergies Allergies Allergies Coded Allergies Type Severity Reaction Last Updated Verified No Known Drug Allergies 08/12/20 No Physical Exam Physical Exam Constitutional: Well developed, well nourished, no acute distress, non-toxic appearance. HENT: Normocephalic, atraumatic, bilateral external ears normal, oropharynx moist, no oral exudates, nose normal. Diminished hearing Eyes: PERRLA, EOMI, conjunctiva normal, no discharge. Neck: Normal range of motion, no tenderness, supple, no stridor. Cardiovascular: Heart rate regular, sinus rhythm, no murmurs rubs or gallops Lungs & Thorax: Bilateral breath sounds clear to auscultation Abdomen: Bowel sounds normal, soft, no tenderness, no masses, no pulsatile masses. Nonsurgical abdomen, no peritoneal signs Skin: Warm, dry, no erythema, no rash. Back: No tenderness, no CVA tenderness. Extremities: No tenderness, no cyanosis, no clubbing, ROM intact, no edema. Neurologic: Alert and oriented X 3, grossly normal motor & sensory function, no focal deficits noted. Psychologic: Affect normal, judgement normal, mood normal. Current Patient Data Vital Signs Vital Signs Date Time Temp Pulse Resp B/P (MAP) Pulse Ox O2 Delivery O2 Flow Rate FiO2 08/12/20 14:21 97.8 99 19 156/68 (97) 100 Room Air Lab Results Laboratory Tests Test 08/12/20 14:53 White Blood Count 8.3 x10^3/uL Red Blood Count 2.19 x10^6/uL Hemoglobin 6.4 g/dL Hematocrit 20.5 % Mean Corpuscular Volume 94 fL Mean Corpuscular Hemoglobin 29 pg Mean Corpuscular Hemoglobin Concent 31 g/dL Red Cell Distribution Width 16.4 % Platelet Count 388 x10^3/uL Neutrophils (%) (Auto) 75 % Lymphocytes (%) (Auto) 15 % Monocytes (%) (Auto) 7 % Eosinophils (%) (Auto) 2 % Basophils (%) (Auto) 1 % Neutrophils # (Auto) 6.2 x10^3uL Lymphocytes # (Auto) 1.2 x10^3/uL Monocytes # (Auto) 0.6 x10^3/uL Eosinophils # (Auto) 0.2 x10^3/uL Basophils # (Auto) 0.1 x10^3/uL EKG EKG [] Radiology/Procedures Radiology/Procedures [] Heart Score C/O Chest Pain: No Risk Factors: Risk Factors: DM, Current or recent (<one month) smoker, HTN, HLP, family history of CAD, obesity. Risk Scores: Risk Factors: DM, Current or recent (<one month) smoker, HTN, HLP, family history of CAD, obesity. Course & Med Decision Making Course & Med Decision Making Hemodynamically stable patient presents with history and physical exam concerning for acute on chronic anemia in a symptomatic patient ER work-up found hemoglobin of 6.4. I discussed case with hospitalist, Dr. Scales, who is familiar with patient and agreed need for hospital admission for transfusion Instructions were given to transfuse x2 units packed red blood cells with 60 mg IV Lasix to be administered in between I updated patient and patient advocate presenting with her on proposed plan of care that involved hospital admission for transfusion and they were both amenable. All questions and concerns addressed prior to ER transport to [facility] for admission Dragon Disclaimer Dragon Disclaimer This electronic medical record was generated, in whole or in part, using a voice recognition dictation system. Departure Departure: Impression: Primary Impression: Acute on chronic anemia Disposition: ADMITTED INPT THIS HOSP Admitting Physician: Drake Scales Condition: STABLE Referrals: BRADLEY YATES (PCP) MACKENZIE HARVEY DO Aug 12, 2020 14:39
[2020-08-12 15:13] LABS: BASO # 0.1 x10^3/uL (0.0-0.2); BASO % 1 % (0-3); EOS # 0.2 x10^3/uL (0.0-0.7); EOS % 2 % (0-3); HEMATOCRIT 20.5 % (36.0-47.0); LYMPH # 1.2 x10^3/uL (1.0-4.8); LYMPH % 15 % (24-48); MEAN CORPUSCULAR HEMOGLOBIN 29 pg (25-35); MEAN CORPUSCULAR HGB CONC 31 g/dL (31-37); MEAN CORPUSCULAR VOLUME 94 fL (79-100); MONO # 0.6 x10^3/uL (0.0-1.1); MONO % 7 % (0-9); NEUT # 6.2 x10^3uL (1.8-7.7); NEUT % 75 % (31-73); PLATELET COUNT 388 x10^3/uL (140-400); RED BLOOD COUNT 2.19 x10^6/uL (3.50-5.40); RED CELL DISTRIBUTION WIDTH 16.4 % (11.5-14.5); WHITE BLOOD COUNT 8.3 x10^3/uL (4.0-11.0)
[2020-08-12 15:19] LABS: HEMOGLOBIN 6.4 g/dL (12.0-15.5)
[2020-08-12] MEDS ORDERED: TRAM50TA PO (17:13)
[2020-08-12] MEDS ORDERED: traMADol 50 MG TABLET PO PRN (18:00)
[2020-08-12] MEDS ORDERED: ACETAMINOPHEN 325 MG TABLET PO PRN ×2 (18:00→18:30)
[2020-08-12] MEDS ORDERED: FUROSEMIDE 40 MG/4 ML VIAL IVP ONE (19:30)
[2020-08-12] MEDS: ASCORBIC ACID 500 MG TABLET PO SCH (20:08)
[2020-08-12] MEDS: prednisoLONE ACETATE 1% OPHTH SUSPENSION 5ML BOTTLE. OU SCH (20:09)
[2020-08-12] MEDS ORDERED: DULoxetine HCL 30 MG CAPSULE.DR PO SCH (21:00)
[2020-08-13 05:48] LABS: BASO # 0.1 x10^3/uL (0.0-0.2); BASO % 1 % (0-3); EOS # 0.2 x10^3/uL (0.0-0.7); EOS % 3 % (0-3); HEMATOCRIT 30.2 % (36.0-47.0); HEMOGLOBIN 9.8 g/dL (12.0-15.5); LYMPH # 1.3 x10^3/uL (1.0-4.8); LYMPH % 22 % (24-48); MEAN CORPUSCULAR HEMOGLOBIN 29 pg (25-35); MEAN CORPUSCULAR HGB CONC 33 g/dL (31-37); MEAN CORPUSCULAR VOLUME 90 fL (79-100); MONO # 0.5 x10^3/uL (0.0-1.1); MONO % 9 % (0-9); NEUT # 3.8 x10^3uL (1.8-7.7); NEUT % 65 % (31-73); PLATELET COUNT 332 x10^3/uL (140-400); RED BLOOD COUNT 3.36 x10^6/uL (3.50-5.40); RED CELL DISTRIBUTION WIDTH 15.1 % (11.5-14.5); WHITE BLOOD COUNT 5.8 x10^3/uL (4.0-11.0)
[2020-08-13] MEDS ORDERED: LEVOTHYROXINE 50 MCG TABLET PO SCH (06:00)
[2020-08-13 06:02] LABS: ALBUMIN 2.2 g/dL (3.4-5.0); ALBUMIN/GLOBULIN RATIO 0.5 (1.0-1.7); CALCIUM 8.4 mg/dL (8.5-10.1); GFR 23.5; POTASSIUM 5.2 mmol/L (3.5-5.1); TOTAL BILIRUBIN 0.4 mg/dL (0.2-1.0); TOTAL PROTEIN 6.5 g/dL (6.4-8.2)
[2020-08-13] MEDS ORDERED: HYDROXYCHLOROQUINE 200 MG TABLET PO SCH (08:00)
[2020-08-13 08:18] VITALS: BP 135/62
[2020-08-13] MEDS: ASCORBIC ACID 500 MG TABLET PO SCH (08:18)
[2020-08-13] MEDS: prednisoLONE ACETATE 1% OPHTH SUSPENSION 5ML BOTTLE. OU SCH (08:19)
--- NOTE | 2020-08-13 08:50 | HP ---
ADMIT DATE: 08/12/2020 ATTENDING PHYSICIAN: Dr. Singh. FINAL DISCHARGE DIAGNOSES: 1. Symptomatic anemia. 2. Paroxysmal atrial fibrillation. 3. Acute on chronic diastolic heart failure, compensated. 4. Sensorineural hearing loss. 5. Generalized debilitation. 6. Essential hypertension. 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 She has had workup in the past without any active blood loss. She is not on any blood thinners. She has been admitted multiple times, most recently 2 weeks ago, with a hemoglobin of 5.4 g. She received 2 units of packed red cells. Since that time, her own red blood cells have become senescent and once again, she is symptomatic with a hemoglobin of 6.2 g/dL. She is admitted then for observation and transfusion of packed red blood cells to increase oxygen carrying capacity. PAST MEDICAL HISTORY: Significant for those conditions of chronic anemia. CURRENT MEDICATIONS: Include acetaminophen, vitamin C, vitamin D, digoxin, Cymbalta, vitamin D2, ferrous sulfate, hydroxychloroquine, levothyroxine, Cozaar, Protonix, prednisolone and tramadol. ALLERGIES: She has no recorded drug allergies. SOCIAL HISTORY: She is a nonsmoker, nondrinker. FAMILY HISTORY: Unobtainable. REVIEW OF SYSTEMS: Significant for the generalized weakness. Her appetite has been fair. She denied any pain, dyspnea or shortness of breath. No COVID exposure. All other systems reviewed and turned to be negative. PHYSICAL EXAMINATION: GENERAL: When I saw her, this is a pleasant, cachectic, thin female. INITIAL VITAL SIGNS: Showed a blood pressure of 135/62, her pulse was 89 and regular, temperature 98.1 degrees Fahrenheit, her oxygen saturations were 97% on room air. HEENT: Head is without trauma. Pupils are reactive. Sclerae are nonicteric. Conjunctiva is pale. Ears were adequate. NECK: Supple. No stridor. LUNGS: Good breath sounds. CARDIOVASCULAR: Showed distant heart tones. No gallops. ABDOMEN: Soft, scaphoid, nontender. EXTREMITIES: Showed trace edema. NEUROLOGIC: Focally intact. Speech is fluent. SKIN: Otherwise warm and dry. PERTINENT LABORATORY STUDIES: Hemoglobin is down to 6.4 g/dL with a white count of 8300. Sodium 139 mEq, potassium 5.2. Creatinine is 2.0 mg percent. ASSESSMENT: 1. 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 2. 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 3. Acute on chronic diastolic congestive heart failure, compensated. 4. Chronic kidney disease stage 4. 5. Sensorineural hearing loss. 6. Generalized debilitation. 7. Paroxysmal atrial fibrillation. 8. Essential hypertension. PLAN: 1. Observation status. 2. Transfusion of 2 units of packed red cells to increase oxygen carrying capacity in this symptomatic patient. 3. She will need a dose of Lasix in between units. I have arranged this with the nursing staff. She does get a little dyspneic with the volume. 4. Follow up CBC in the morning. 5. Diet as tolerated. 6. Continue home meds. 7. She remains a DNR per advanced directives. MELLO SINGH MD DR: MISSY/kulwinder JOB#: [id number] / [id number] BRADLEY Cheek
[2020-08-13] MEDS ORDERED: CHOLECALCIFEROL (VITAMIN D3) 1,000 UNIT TABLET PO SCH (09:00)
[2020-08-13] MEDS ORDERED: PANTOPRAZOLE 40 MG TABLET. PO SCH (09:00)
[2020-08-13] MEDS ORDERED: LOSARTAN 50 MG TABLET. PO SCH (09:00)
--- NOTE | 2020-08-13 09:47 | DS ---
DATE OF DISCHARGE: 08/13/2020 ATTENDING PHYSICIAN: Dr. Singh. FINAL DISCHARGE DIAGNOSES: 1. Symptomatic anemia. 2. Transfusion of packed red cells to increase oxygen carrying capacity in a symptomatic patient. 3. Anemia of chronic disease. 4. Acute on chronic diastolic congestive heart failure, compensated. 5. Chronic kidney disease stage 4. 6. Sensorineural hearing loss. 7. Generalized debilitation. 8. Paroxysmal atrial fibrillation. 9. Essential hypertension. HISTORY AND PHYSICAL: This is a pleasant 89-year-old female admitted for symptomatic anemia, hemoglobin 6.4 gram. She has been here multiple times for transfusion in the past. PHYSICAL EXAMINATION: Please see the dictated note. PERTINENT LABORATORY AND X-RAY STUDIES: Admission hemoglobin was 6.4, after transfusion of 2 units of packed red cells and increase oxygen carrying capacity, the hemoglobin the next morning, came up to 9.8 g/dL with a white count of 5800. Electrolytes: Potassium is 5.2 mEq, creatinine is 2.0 mg/dL, with a BUN of 61. COURSE IN THE HOSPITAL: The patient was admitted. She was given blood. We ordered Lasix in between transfusions because of symptoms. She did well. Followup hemoglobin next morning improved to 9.8 gram. She was feeling better and she was ready for discharge. At this time, there are no changes on her home meds. She will continue her Tylenol, ascorbic acid, cholecalciferol, digoxin, Cymbalta, vitamin D2, ferrous sulfate, hydroxychloroquine, Synthroid, losartan, Protonix, prednisolone eyedrops and Tramadol dose is unchanged. She was sent home in stable condition with explicit instructions and followup care. MELLO SINGH MD DR: MISSY/kulwinder JOB#: [id number] / [id number] BRADLEY Cheek
[2020-08-19] MEDS ORDERED: CHOLECALCIFEROL 10000 UNIT PO SCH (09:00)
== END 2020-08-13 09:17 | disposition home or self-care (01) ==
LOC: ER 14:03 → 1 SOUTH 15:27
PROVIDERS: ADMIT Hospitalist; ATTEND Hospitalist
DX: D64.9 Anemia, unspecified (principal); I48.0 Paroxysmal atrial fibrillation; I13.0 Hypertensive heart and chronic kidney disease with heart failure and stage 1 through stage 4 chronic kidney disease, or unspecified chronic kidney disease; I50.33 Acute on chronic diastolic (congestive) heart failure; D63.1 Anemia in chronic kidney disease; N18.4 Chronic kidney disease, stage 4 (severe); D61.9 Aplastic anemia, unspecified; D63.8 Anemia in other chronic diseases classified elsewhere; H90.5 Unspecified sensorineural hearing loss; E78.00 Pure hypercholesterolemia, unspecified; R53.81 Other malaise; Z66 Do not resuscitate; Z98.890 Other specified postprocedural states
CPT/HCPCS: 36415; 36430; 80053; 85025; 86850; 86900; 86901; 86920; 96374; 99285; G0378; J1940; P9016; G0379

== ENCOUNTER 2020-09-03 15:30 | Inpatient (IN) | payer OTHER ==
[~2020-09-03] VITALS: Ht 154.9 cm; Wt 39.8 kg
[2020-09-03] VITALS (7 sets, daily range): BP systolic 124–157; BP diastolic 60–70
[~2020-09-03 15:30] MED LIST changes: +TRAM50TA PO
--- NOTE | 2020-09-03 15:58 | PHYS DOC ---
Past History Past Medical History: Anemia, CHF, High Cholesterol, Renal Disease Past Surgical History: Other Additional Past Surgical Histo: coloscopy last april (? date) Alcohol Use: None Drug Use: None Adult General Chief Complaint Chief Complaint: ANEMIA HPI HPI Patient is an 89-year-old female presenting for concerns of feeling faint, weak since missing a transfusion because she did not have a ride to her last transfusion. She reports she typically gets a transfusion every 8 to 15 days, however missed her last transfusion and so her primary care provider told her to present to the ER today for evaluation. She reports no syncopal events or feeling like she is going to pass out however does report an episode last night while she was laying in bed reports right lower chest pain that radiated to her back and she sweated profusely for about 15 minutes as the pain came and went. She reports the pain resolved on its own and currently she does not feel the pain. She denies previous cardiac history, syncopal events, trauma, blood loss, knowing what the source of her anemia is, nausea, vomiting, diarrhea, bloody stools, daily prescription medicine use. Does report taking iron tablet every night. Does report occasional lower extremity edema and hand swelling reports they are always swollen and thinks that today they are slightly swollen. Review of Systems Review of Systems Fourteen body systems of review of systems have been reviewed. See HPI for pertinent positives and negative responses, other canas all other systems are negative, non-pertinent or non-contributory Allergies Allergies Allergies Coded Allergies Type Severity Reaction Last Updated Verified No Known Drug Allergies 08/12/20 No Physical Exam Physical Exam Constitutional: Well developed, well nourished, no acute distress, non-toxic appearance. HENT: Normocephalic, atraumatic, bilateral external ears normal, oropharynx moist, no oral exudates, nose normal. lower eyelids are slightly pale. Eyes: PERRLA, EOMI, conjunctiva normal, no discharge. Neck: Normal range of motion, no tenderness, supple, no stridor. Cardiovascular:Heart rate regular rhythm, no murmur Lungs & Thorax: Bilateral breath sounds clear to auscultation Abdomen: Bowel sounds normal, soft, no tenderness, no masses, no pulsatile masses. Skin: Warm, dry, no erythema, no rash. Back: No tenderness, no CVA tenderness. Extremities: No tenderness, no cyanosis, no clubbing, ROM intact, no edema. Neurologic: Alert and oriented X 3, normal motor function, normal sensory function, no focal deficits noted. Psychologic: Affect normal, judgement normal, mood normal. Current Patient Data Vital Signs Vital Signs Date Time Temp Pulse Resp B/P (MAP) Pulse Ox O2 Delivery O2 Flow Rate FiO2 09/03/20 15:45 98.2 95 18 145/72 (96) 97 Room Air Vital Signs Date Time Temp Pulse Resp B/P (MAP) Pulse Ox O2 Delivery O2 Flow Rate FiO2 09/04/20 08:35 14 96 09/04/20 08:35 84 136/62 09/04/20 05:29 98.4 Room Air Lab Results Laboratory Tests Test 09/03/20 16:15 09/03/20 23:10 09/04/20 07:25 White Blood Count 7.4 x10^3/uL 6.2 x10^3/uL Red Blood Count 2.08 x10^6/uL 2.60 x10^6/uL Hemoglobin 5.9 g/dL 7.7 g/dL 7.7 g/dL Hematocrit 18.7 % 23.6 % 23.3 % Mean Corpuscular Volume 90 fL 89 fL Mean Corpuscular Hemoglobin 29 pg 30 pg Mean Corpuscular Hemoglobin Concent 32 g/dL 33 g/dL 33 g/dL Red Cell Distribution Width 15.9 % 15.2 % Platelet Count 437 x10^3/uL 371 x10^3/uL Sodium Level 135 mmol/L 138 mmol/L Potassium Level 5.1 mmol/L 4.8 mmol/L Chloride Level 103 mmol/L 106 mmol/L Carbon Dioxide Level 24 mmol/L 23 mmol/L Anion Gap 8 9 Blood Urea Nitrogen 50 mg/dL 41 mg/dL Creatinine 2.2 mg/dL 1.9 mg/dL Estimated GFR (Cockcroft-Gault) 21.1 24.9 BUN/Creatinine Ratio 23 22 Glucose Level 104 mg/dL 94 mg/dL Calcium Level 8.0 mg/dL 8.1 mg/dL Total Bilirubin 0.1 mg/dL 0.3 mg/dL Aspartate Amino Transf (AST/SGOT) 19 U/L 22 U/L Alanine Aminotransferase (ALT/SGPT) 13 U/L 9 U/L Alkaline Phosphatase 99 U/L 82 U/L Troponin I Quantitative < 0.017 ng/mL [id number] Natriuretic Peptide 6507 pg/mL Total Protein 6.7 g/dL 6.1 g/dL Albumin 2.6 g/dL 2.1 g/dL Albumin/Globulin Ratio 0.6 0.5 Prothrombin Time 10.1 SEC Prothromb Time International Ratio 1.0 Current Medications Medications (Trade) Dose Ordered Sig/Allen Route PRN Reason Start Time Stop Time Status Last Admin Dose Admin Acetaminophen (Tylenol) 650 mg PRN 1X PRN PO PRIOR TO TRANSFUSION 09/03/20 17:30 09/04/20 17:29 Diphenhydramine HCl (Benadryl Oral Elixir) 12.5 mg PRN 1X PRN PO PRIOR TO TRANSFUSION 09/03/20 17:30 09/04/20 17:29 Duloxetine HCl (Cymbalta) 30 mg HS PO 09/03/20 21:30 Cancel Ferrous Sulfate (Feosol) 325 mg BID PO 09/03/20 21:30 Cancel Hydroxychloroquine Sulfate (Plaquenil) 200 mg DAILY08 PO 09/04/20 08:00 09/04/20 08:00 Levothyroxine Sodium (Synthroid) 50 mcg DAILY06 PO 09/04/20 06:00 09/04/20 05:23 Losartan Potassium (Cozaar) 50 mg DAILY PO 09/04/20 09:00 09/04/20 08:35 Tramadol HCl (Ultram) 50 mg PRN Q12HR PRN PO PAIN 09/03/20 20:45 09/03/20 21:58 DC Non-Formulary Medication (Cholecalciferol (Vitamin D3) (Vitamin D)) 10,000 unit WEEKLY PO 09/10/20 09:00 UNV Vitamin D (Vitamin D3) 1,000 unit DAILY PO 09/04/20 09:00 09/04/20 08:35 Prednisolone Acetate (Pred Forte) 1 drop QID OU 09/03/20 21:30 Cancel Tramadol HCl (Ultram) 50 mg Q12HR PO 09/03/20 22:00 Cancel Duloxetine HCl (Cymbalta) 30 mg HS PO 09/04/20 21:00 Ferrous Sulfate (Feosol) 325 mg BID PO 09/04/20 09:00 09/04/20 08:37 Prednisolone Acetate (Pred Forte) 1 drop QID OU 09/04/20 09:00 09/04/20 08:35 Tramadol HCl (Ultram) 50 mg Q12HR PO 09/04/20 09:00 09/04/20 08:35 EKG EKG EKG ordered and interpreted by myself at 1618hr as sinus rhythm at 93bpm, normal intervals, no axis deviation, no ischemic changes or STEMI Radiology/Procedures Radiology/Procedures [] Heart Score C/O Chest Pain: No HEART Score for Chest Pain: HEART Score for Chest Pain Response (Comments) Value History Slighlty/Non-Suspicious 0 ECG Normal 0 Age > 65 2 Risk Factors >3 Risk Factors or Hx CAD 2 Troponin < Normal Limit 0 Total 4 Risk Factors: Risk Factors: DM, Current or recent (<one month) smoker, HTN, HLP, family history of CAD, obesity. Risk Scores: Risk Factors: DM, Current or recent (<one month) smoker, HTN, HLP, family history of CAD, obesity. Course & Med Decision Making Course & Med Decision Making Hemodynamically stable patient with HPI concerning for symptomatic anemia that is a chronic problem per patient. Physical exam grossly nonconcerning. ER work-up concerning for low hemoglobin 5.9 requiring transfusion I have updated patient on proposed plan of care that would involve hospital admission for infusion of packed red blood cells, she was amenable. I contacted hospitalist and discussed need for admission with him, he is knowledgeable about patient and her past medical history as well and agreed need for hospital admission for continued care and management All questions and concerns addressed prior to ER departure to [facility] for admission Karl Disclaimer Dragon Disclaimer This electronic medical record was generated, in whole or in part, using a voice recognition dictation system. Departure Departure: Impression: Primary Impression: Anemia Disposition: ADMITTED INPT THIS HOSP Admitting Physician: Gina Alcala Condition: STABLE Referrals: BRADLEY YATES (PCP) MACKENZIE HARVEY DO Sep 03, 2020 15:58
[2020-09-03 16:48] LABS: RED BLOOD COUNT 2.08 x10^6/uL (3.50-5.40); RED CELL DISTRIBUTION WIDTH 15.9 % (11.5-14.5); WHITE BLOOD COUNT 7.4 x10^3/uL (4.0-11.0)
[2020-09-03 16:56] LABS: CREATININE 2.2 mg/dL (0.6-1.0); GFR 21.1; POTASSIUM 5.1 mmol/L (3.5-5.1)
[2020-09-03 16:57] LABS: HEMATOCRIT 18.7 % (36.0-47.0); HEMOGLOBIN 5.9 g/dL (12.0-15.5)
[2020-09-03 17:11] LABS: ALBUMIN 2.6 g/dL (3.4-5.0); ALBUMIN/GLOBULIN RATIO 0.6 (1.0-1.7); TOTAL BILIRUBIN 0.1 mg/dL (0.2-1.0); TOTAL PROTEIN 6.7 g/dL (6.4-8.2)
[2020-09-03] MEDS ORDERED: diphenhydrAMINE ORAL ELIXIR 12.5 MG/5 ML ML PO PRN (17:30)
[2020-09-03] MEDS ORDERED: ACETAMINOPHEN 325 MG TABLET PO PRN (17:30)
--- NOTE | 2020-09-03 19:00 | NUR ---
PT WAS ON FLOOR BEFORE SHIFT CHANGE. PT IS A&OX4 AND ON ROOM AIR. PT IS CURRENTLY RESTING IN BED.
[2020-09-03] MEDS ORDERED: traMADol 50 MG TABLET PO PRN (20:45)
[2020-09-03] MEDS ORDERED: DULoxetine HCL 30 MG CAPSULE.DR PO SCH (21:30)
[2020-09-03] MEDS ORDERED: FERROUS SULFATE 325 MG TABLET. PO SCH (21:30)
[2020-09-03] MEDS ORDERED: prednisoLONE ACETATE 1% OPHTH SUSPENSION 5ML BOTTLE. OU SCH (21:30)
[2020-09-03] MEDS ORDERED: traMADol 50 MG TABLET PO SCH (22:00)
[2020-09-03 23:21] LABS: HEMATOCRIT 23.6 % (36.0-47.0); HEMOGLOBIN 7.7 g/dL (12.0-15.5)
--- NOTE | 2020-09-03 23:25 | NUR ---
BLOOD TRANSFUSION STARTED AT 1943 TUBING PRIMED WITH NORMAL SALINE & THEN PRIMED WITH BLOOD TRANSFUSION STARTED AT 75 ML/HR, PATIENT MONITORED CLOSELY X 15 MIN. NO REACTION NOTED, TRANSFUSION INCREASED TO 120ML/HR, THEN 200ML/HR.
--- NOTE | 2020-09-03 23:35 | NUR ---
PT RECEIVED 1 UNIT PACKED RED BLOOD CELLS. HEMOGLOBIN AFTER TRANSFUSION WAS 7.7 PT WILL NOT RECEIVE ANOTHER UNIT THIS EVENING PER DR. BENÍTEZ.
--- NOTE | 2020-09-04 05:04 | NUR ---
SINCE HER TRANSFUSION PT HAS SLEPT THROUGH THE NIGHT GETTING UP TO THE BEDSIDE COMMODE ONCE. PT HAS HAD NO COMPLAINTS THIS EVENING AND IS CURRENTLY SLEEPING. WILL CONTINUE TO MONITOR.
[2020-09-04] MEDS: LEVOTHYROXINE 50 MCG TABLET PO SCH (05:23)
[2020-09-04 05:29] VITALS: BP 136/62
--- NOTE | 2020-09-04 06:39 | EKG ---
[address] [address] Test Date: 2020-09-03 Test Time: 16:09:46 Pat Name: JAYE MOROCHO Department: Room: Gender: F Court Supervisor: : [id number] Requested By: MACKENZIE HARVEY Order Number: [id number] Reading MD: Measurements Intervals [place] Rate: 93 P: 18 WV: 144 QRS: 1 QRSD: 72 T: 46 QT: 342 QTc: 428 Interpretive Statements SINUS RHYTHM NORMAL ECG RI6.02 No previous ECG available for comparison
[2020-09-04] MEDS: HYDROXYCHLOROQUINE 200 MG TABLET PO SCH (08:00)
[2020-09-04 08:02] LABS: HEMATOCRIT 23.3 % (36.0-47.0); HEMOGLOBIN 7.7 g/dL (12.0-15.5); RED BLOOD COUNT 2.6 x10^6/uL (3.50-5.40); RED CELL DISTRIBUTION WIDTH 15.2 % (11.5-14.5); WHITE BLOOD COUNT 6.2 x10^3/uL (4.0-11.0)
[2020-09-04 08:16] LABS: ALBUMIN 2.1 g/dL (3.4-5.0); ALBUMIN/GLOBULIN RATIO 0.5 (1.0-1.7); CALCIUM 8.1 mg/dL (8.5-10.1); CREATININE 1.9 mg/dL (0.6-1.0); GFR 24.9; POTASSIUM 4.8 mmol/L (3.5-5.1); TOTAL BILIRUBIN 0.3 mg/dL (0.2-1.0); TOTAL PROTEIN 6.1 g/dL (6.4-8.2)
[2020-09-04] MEDS: traMADol 50 MG TABLET PO SCH ×2 (08:35→20:59)
[2020-09-04] MEDS: LOSARTAN 50 MG TABLET. PO SCH (08:35)
[2020-09-04] MEDS: prednisoLONE ACETATE 1% OPHTH SUSPENSION 5ML BOTTLE. OU SCH ×4 (08:35→21:00)
[2020-09-04] MEDS: CHOLECALCIFEROL (VITAMIN D3) 1,000 UNIT TABLET PO SCH (08:35)
[2020-09-04] MEDS: FERROUS SULFATE 325 MG TABLET. PO SCH ×2 (08:37→20:38)
[2020-09-04 11:14] VITALS: BP 141/56
--- NOTE | 2020-09-04 12:23 | HP ---
ADMIT DATE: 09/03/2020 HISTORY OF PRESENT ILLNESS: The patient is an 89-year-old female patient who yet again came to the Emergency Room with complaint of feeling faint, weak since missing a transfusion because she did not arrive to her last transfusion. She reports she typically gets transfusion every 8-15 days; however, missed her last transfusion and so her primary care provider told her to present to the Emergency Room today for evaluation. She reports no syncopal event or feeling like she is going to pass out; however, she does report an episode of lying in bed, having right lower chest pain that radiated to her back. She was sweating profusely for about 15 minutes. As the pain came and went, she reports the pain resolved on its own. Currently by the time she arrives, she does not have any pain. She denied any previous cardiac history, syncopal event, trauma, blood loss and knowing what the source of her anemia is nausea, vomiting, diarrhea, bloody stools daily. She was investigated in the Emergency Room and was found to be profoundly anemic. Her hemoglobin was 5.9, hematocrit was 18.7 with normal white cell count and platelets. She was admitted and 1 unit of packed RBCs was ordered. Her prothrombin time and INR are normal. Her chemistry continued to show chronic kidney disease with a creatinine of 2.2 and BUN of 50 and has had mild hyperkalemia. PAST MEDICAL HISTORY: Significant for hypertension, hyperlipidemia, hypothyroidism. She is also known to have glaucoma and idiopathic pulmonary fibrosis. She is also known to have atrial fibrillation, rate controlled, but she is not a candidate for anticoagulation given recurrent anemia due to blood loss before. PAST SURGICAL HISTORY: Significant for left ankle fracture, status post open reduction and internal fixation in 2014. ALLERGIES: She has no known drug allergies. FAMILY HISTORY: She has 2 sisters and 2 brothers, all younger than her. One of her sisters is nun. The others are . She has 2 brothers, both live in [place], one has coronary artery disease. The younger one has diabetes. Her father at the age of 90 and mother at age of 69. 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 SOCIAL HISTORY: Apparently, she is a nun since she was 18 years old. She does not smoke, drink alcohol or use any recreational drugs. PHYSICAL EXAMINATION: GENERAL: On arrival to the Emergency Room, she looked pale. No jaundice, cyanosis or thyromegaly. No jugular venous distention. No lower limb edema. VITAL SIGNS: Her heart rate was 95, blood pressure 145/72, temperature was 98.2, respiratory rate was 18 and oxygen saturation was 97%. HEAD, EYES, EARS, NOSE AND THROAT: Normocephalic, atraumatic. NECK: Supple. HEART: Showed normal first and second heart sounds. No gallop or murmur. CHEST: Clear to auscultation. No crepitation or rhonchi. ABDOMEN: Distended, soft, nontender. NEUROLOGIC: She is awake, alert, responding appropriately. All cranial nerves intact. EXTREMITIES: She moves all extremities without difficulty. LABORATORY DATA: Her lab work on arrival showed a white cell count of 7400, hemoglobin 5.9, hematocrit 18.7, MCV 90 and platelet count of 437,000. Her prothrombin time and INR are normal. Chemistry showed a serum sodium 135, potassium 5.1, chloride 103, bicarbonate 24, anion gap of 8, BUN 50, creatinine 2.2, estimated GFR was 21 mL per minute, his glucose 104, calcium was 8. Total bilirubin, AST, ALT, alkaline phosphatase were normal. Her beta natriuretic peptide was 6500. Her total protein was 6.7, albumin was 2.6. ASSESSMENT AND PLAN: The patient was admitted again with recurrent episode of blood loss anemia and 1 unit of packed RBCs ordered. We will obviously monitor her H and H and transfuse her as needed. I would also check her hematinics and if they are, we might have to replenish her iron or vitamin B12 if they are deficient, although her MCV is normal. DYLAN BENÍTEZ MD DR: PURA/kulwinder JOB#: [id number] / [id number]
[2020-09-04 14:56] VITALS: BP 120/54
[2020-09-04 16:02] LABS: HEMATOCRIT 23.4 % (36.0-47.0); HEMOGLOBIN 7.6 g/dL (12.0-15.5)
[2020-09-04 19:00] VITALS: BP 130/60
[2020-09-04] MEDS ORDERED: DULoxetine HCL 30 MG CAPSULE.DR PO SCH (21:00)
[2020-09-04 22:36] VITALS: BP 143/67
--- NOTE | 2020-09-05 04:26 | NUR ---
Pt is pleasant, cooperative and denies pain. She slept soundly all night. Will continue to monitor.
[2020-09-05] MEDS: LEVOTHYROXINE 50 MCG TABLET PO SCH (05:38)
[2020-09-05 05:42] VITALS: BP 130/54
[2020-09-05 08:04] LABS: HEMATOCRIT 24.9 % (36.0-47.0); HEMOGLOBIN 8.1 g/dL (12.0-15.5); RED BLOOD COUNT 2.73 x10^6/uL (3.50-5.40); RED CELL DISTRIBUTION WIDTH 15.5 % (11.5-14.5); WHITE BLOOD COUNT 6.2 x10^3/uL (4.0-11.0)
[2020-09-05 08:17] LABS: CALCIUM 7.8 mg/dL (8.5-10.1); CREATININE 1.8 mg/dL (0.6-1.0); GFR 26.6
[2020-09-05] MEDS: FERROUS SULFATE 325 MG TABLET. PO SCH (08:27)
[2020-09-05] MEDS: LOSARTAN 50 MG TABLET. PO SCH (08:28)
[2020-09-05] MEDS: traMADol 50 MG TABLET PO SCH (08:30)
[2020-09-05] MEDS: CHOLECALCIFEROL (VITAMIN D3) 1,000 UNIT TABLET PO SCH (08:30)
[2020-09-05] MEDS: HYDROXYCHLOROQUINE 200 MG TABLET PO SCH (08:30)
[2020-09-05] MEDS: prednisoLONE ACETATE 1% OPHTH SUSPENSION 5ML BOTTLE. OU SCH ×2 (09:33→13:08)
[2020-09-05 10:54] VITALS: BP 130/58
[2020-09-05 14:45] VITALS: BP 123/62
--- NOTE | 2020-09-05 17:30 | NUR ---
pts kerlinee is here to pick her up. pts IV was D/C'd and pt signed her paperwork. pt was walked out into the waiting room and discharged from the hospital.
--- NOTE | 2020-09-05 19:43 | DS ---
DATE OF DISCHARGE: 09/05/2020 HOSPITAL COURSE: The patient is an 89-year-old female patient with anemia of chronic blood loss as well as anemia of chronic kidney disease, who usually gets transfusion every 1-2 weeks. Apparently, she missed the last transfusion and so her primary care physician had told her to present to the Emergency Room and she did receive 1 unit of blood. Her hemoglobin was down to 5.9, hematocrit 18.7. We did actually observe her and I also checked her hematinic, and today, her H and H have remained stable at 8.1 and 24.9. Her serum iron was high at 313, TIBC was 329, and iron saturation was 95%. Her serum ferritin was 278. She has also acute on chronic kidney injury. Her creatinine came down from 2.2 to 1.8. She remained stable. A decision was made to discharge her back [facility] to follow with her primary care physician. PHYSICAL EXAMINATION: GENERAL: When I saw her this afternoon, she was resting slightly propped up in bed, in no apparent respiratory distress. She was pale, cachectic, but no jaundice, cyanosis or thyromegaly. No jugular venous distension. No lower limb edema. VITAL SIGNS: Her heart rate was 78, blood pressure was 123/62, temperature 97.8, respiratory rate was 20, and oxygen saturation was 97% on room air. HEAD, EYES, EARS, NOSE AND THROAT: Showed normocephalic, atraumatic. NECK: Supple. HEART: Showed normal first and second heart sounds. No gallop, rub or murmur. CHEST: Clear to auscultation. No crepitation or rhonchi. ABDOMEN: Distended, soft, nontender. NEUROLOGIC: She was awake, alert, responding appropriately. Neurologically, she is very hard of hearing, otherwise all cranial nerves intact. She moves extremities without difficulty. Her intake and output over the last 24 hours was incompletely recorded. LABORATORY DATA: This morning showed a serum sodium 139, potassium 5, chloride 107, bicarbonate 24, anion gap of 8, BUN 37, creatinine 1.8, estimated GFR was 26.6 mL per minute. Her glucose was 92, calcium was 7.8. Her white cell count was 6200, hemoglobin 8, hematocrit 24, MCV 91, and platelet count 374,000. ASSESSMENT: An 89-year-old female patient with blood loss anemia, likely due to chronic blood loss as well as anemia of chronic kidney disease. She did receive 1 unit of packed RBCs and her H and H remained stable. Other medical problems include hypertension, hyperlipidemia, hypothyroidism, chronic kidney disease as well as atrial fibrillation and idiopathic pulmonary fibrosis. DYLAN BENÍTEZ MD DR: PURA/kulwinder JOB#: [id number] / [id number]
[2020-09-10] MEDS ORDERED: CHOLECALCIFEROL 10000 UNIT PO SCH (09:00)
== END 2020-09-05 17:30 | disposition home or self-care (01) | DRG 291 ==
LOC: ER 15:30 → 1 SOUTH 17:07 → ER 18:02
PROVIDERS: ADMIT Internal Medicine; ATTEND Internal Medicine
PROC: 30233N1 Transfusion of Nonautologous Red Blood Cells into Peripheral Vein, Percutaneous Approach (ICD-10-PCS; principal; 2020-09-03)
DX: I13.0 Hypertensive heart and chronic kidney disease with heart failure and stage 1 through stage 4 chronic kidney disease, or unspecified chronic kidney disease (principal); N17.0 Acute kidney failure with tubular necrosis; E43 Unspecified severe protein-calorie malnutrition; Z68.1 Body mass index [BMI] 19.9 or less, adult; D50.0 Iron deficiency anemia secondary to blood loss (chronic); D63.1 Anemia in chronic kidney disease; E03.9 Hypothyroidism, unspecified; E78.00 Pure hypercholesterolemia, unspecified; E78.5 Hyperlipidemia, unspecified; E87.5 Hyperkalemia; I48.91 Unspecified atrial fibrillation; I50.9 Heart failure, unspecified; H40.9 Unspecified glaucoma; J84.112 Idiopathic pulmonary fibrosis; N18.9 Chronic kidney disease, unspecified; Z82.49 Family history of ischemic heart disease and other diseases of the circulatory system; Z83.3 Family history of diabetes mellitus
CPT/HCPCS: 36415; 36430; 80048; 80053; 82607; 82728; 83540; 83550; 83880; 84484; 85014; 85018; 85027; 85610; 86850; 86900; 86901; 86920; 93005; P9016; 99285-25

== ENCOUNTER 2020-09-28 13:39 | Observation (INO) | payer OTHER ==
[~2020-09-28] VITALS: Ht 154.9 cm; Wt 40.8 kg
[2020-09-28] VITALS (8 sets, daily range): BP systolic 119–141; BP diastolic 56–64
--- NOTE | 2020-09-28 14:49 | PHYS DOC ---
Past History Past Medical History: Anemia, CHF, High Cholesterol, Renal Disease Past Surgical History: Other Additional Past Surgical Histo: colonoscopy Alcohol Use: None Drug Use: None General Adult EDM: Chief Complaint: OTHER COMPLAINTS HPI: HPI: 89-year-old female presents with concern for anemia. She went to her doctor's office yesterday and was told she was anemic and will need a transfusion. Since the provider does not have admitting privileges to this hospital and the patient did not want to go to [place], they recommended that she come to the emergency room. The patient seems to think she is just here to get a transfusion. The patient has been seen for this at this facility in the past. She has been admitted previously. Patient has no other complaints at this time. Review of Systems: Review of Systems: Constitutional: Denies fever or chills. Weakness, fatigue. Eyes: Denies change in visual acuity HENT: Denies nasal congestion or sore throat Respiratory: Denies cough or shortness of breath Cardiovascular: Denies chest pain or edema GI: Denies abdominal pain, nausea, vomiting, bloody stools or diarrhea : Denies dysuria Musculoskeletal: Denies back pain or joint pain Integument: Denies rash Neurologic: Denies headache, focal weakness or sensory changes Endocrine: Denies polyuria or polydipsia Lymphatic: Denies swollen glands Psychiatric: Denies depression or anxiety Allergies: Allergies: Allergies Coded Allergies Type Severity Reaction Last Updated Verified No Known Drug Allergies 08/12/20 No Physical Exam: PE: Constitutional: Well developed, well nourished, thin, no acute distress, non- toxic appearance. [] HENT: Normocephalic, atraumatic, bilateral external ears normal, oropharynx moist, no oral exudates, nose normal. [] Eyes: PERRLA, EOMI, conjunctiva normal, no discharge. [] Neck: Normal range of motion, no tenderness, supple, no stridor. [] Cardiovascular: Heart rate regular rhythm, no murmur [] Lungs & Thorax: Bilateral breath sounds clear to auscultation [] Abdomen: Bowel sounds normal, soft, no tenderness, no masses, no pulsatile masses. [] Skin: Warm, dry, no erythema, no rash. [] Back: No tenderness, no CVA tenderness. [] Extremities: No tenderness, no cyanosis, no clubbing, ROM intact, no edema. [] Neurologic: Alert and oriented X 3, normal motor function, normal sensory function, no focal deficits noted. [] Psychologic: Affect normal, judgement normal, mood normal. [] Current Patient Data: Vital Signs: Vital Signs Date Time Temp Pulse Resp B/P (MAP) Pulse Ox O2 Delivery O2 Flow Rate FiO2 09/28/20 13:45 97.6 87 16 151/74 (99) 100 Room Air EKG: EKG: [] Radiology/Procedures: Radiology/Procedures: [] Heart Score: C/O Chest Pain: No Risk Factors: Risk Factors: DM, Current or recent (<one month) smoker, HTN, HLP, family history of CAD, obesity. Risk Scores: Score 0 - 3: 2.5% MACE over next 6 weeks - Discharge Home Score 4 - 6: 20.3% MACE over next 6 weeks - Admit for Clinical Observation Score 7 - 10: 72.7% MACE over next 6 weeks - Early Invasive Strategies Course & Med Decision Making: Course & Med Decision Making Pertinent Labs and Imaging studies reviewed. (See chart for details) The patient's hemoglobin is 6.7. Nurse talked with the primary care office and encouraged him to consider setting up outpatient transfusions rather than sending the patient to the ER each time. I spoke with Dr. Scales and he has accepted the patient for admission. [] Dragon Disclaimer: Karl Disclaimer: This electronic medical record was generated, in whole or in part, using a voice recognition dictation system. Departure Departure: Impression: Primary Impression: Anemia Qualified Codes: D63.8 - Anemia in other chronic diseases classified elsewhere Disposition: ADMITTED INPATIENT Admitting Physician: Drake Scales Condition: STABLE Referrals: BRADLEY YATES (PCP) SHELLY LIN DO September 28, 2020 14:49
[2020-09-28 15:04] LABS: BASO # 0.1 x10^3/uL (0.0-0.2); BASO % 1 % (0-3); EOS # 0.1 x10^3/uL (0.0-0.7); EOS % 1 % (0-3); HEMATOCRIT 20.6 % (36.0-47.0); LYMPH # 0.8 x10^3/uL (1.0-4.8); LYMPH % 12 % (24-48); MEAN CORPUSCULAR HEMOGLOBIN 33 pg (25-35); MEAN CORPUSCULAR HGB CONC 33 g/dL (31-37); MEAN CORPUSCULAR VOLUME 101 fL (79-100); MONO # 0.4 x10^3/uL (0.0-1.1); MONO % 6 % (0-9); NEUT # 5.6 x10^3uL (1.8-7.7); NEUT % 80 % (31-73); PLATELET COUNT 367 x10^3/uL (140-400); RED BLOOD COUNT 2.04 x10^6/uL (3.50-5.40); RED CELL DISTRIBUTION WIDTH 19.6 % (11.5-14.5); WHITE BLOOD COUNT 6.9 x10^3/uL (4.0-11.0)
[2020-09-28 15:06] LABS: HEMOGLOBIN 6.7 g/dL (12.0-15.5)
[2020-09-28 15:18] LABS: CALCIUM 8.1 mg/dL (8.5-10.1); CREATININE 2.4 mg/dL (0.6-1.0); GFR 19.1; POTASSIUM 5.6 mmol/L (3.5-5.1)
[2020-09-28 15:24] LABS: ALBUMIN 2.6 g/dL (3.4-5.0); ALBUMIN/GLOBULIN RATIO 0.6 (1.0-1.7); TOTAL BILIRUBIN 0.2 mg/dL (0.2-1.0); TOTAL PROTEIN 7.1 g/dL (6.4-8.2)
[2020-09-29 06:23] LABS: HEMATOCRIT 25.3 % (36.0-47.0); HEMOGLOBIN 8.4 g/dL (12.0-15.5); RED BLOOD COUNT 2.61 x10^6/uL (3.50-5.40); RED CELL DISTRIBUTION WIDTH 19.7 % (11.5-14.5); WHITE BLOOD COUNT 6.5 x10^3/uL (4.0-11.0)
[2020-09-29 07:23] LABS: CALCIUM 7.9 mg/dL (8.5-10.1); GFR 23.5; POTASSIUM 4.6 mmol/L (3.5-5.1)
[2020-09-29 07:34] VITALS: BP 145/68
--- NOTE | 2020-10-07 11:21 | SSS ---
ADMIT DATE: 09/29/2020 HISTORY OF PRESENT ILLNESS: The patient is almost an 89-year-old female patient, who has yet again came to the emergency room with another episode of anemia. Her hemoglobin has dropped down to 6.7, hematocrit was 20.6. She was seen in the emergency room and apparently, she saw her primary care physician and he recommended that she come to the emergency room for blood transfusion and she was evaluated in the emergency room. Her lab work confirmed that she is anemic and was admitted and was transfused 1 unit of packed RBCs and was discharged back to her residence. PAST MEDICAL HISTORY: Significant for hypertension, hyperlipidemia, hypothyroidism. She is also known to have glaucoma; idiopathic pulmonary fibrosis; atrial fibrillation, rate controlled, but not anticoagulated. She has recurrent episodes of anemia due to blood loss. PAST SURGICAL HISTORY: Significant for left ankle fracture status post open reduction internal fixation in 2015. ALLERGIES: She has no known drug allergies. FAMILY HISTORY: She has two sisters and two brothers, all younger than on her. One of her sisters is a nun, the others are . She has 2 brothers, both live in [place]. One has coronary artery disease. The younger one has diabetes. Her father at age of 90. Her mother at age of 69. 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 SOCIAL HISTORY: She has been on since she was 18 years old. She does not smoke, drink alcohol or recreational drugs. PHYSICAL EXAMINATION: GENERAL: On arrival to the emergency room, she looked well and was pale, but no jaundice, cyanosis or thyromegaly. No jugular venous distention or limb edema. VITAL SIGNS: Her heart rate was 78, blood pressure is 130/57, temperature 97.9, respiratory rate 20, and oxygen saturation was 96% on room air. HEENT: Examination of the head, eyes, ears, nose, and throat: Normocephalic, atraumatic. NECK: Supple. HEART: Showed normal first and second heart sounds. No gallop or murmur. CHEST: Showed central trachea, equal bilateral chest expansion, air entry, vesicular breath sounds. Very few crepitation, mostly posteriorly bilaterally and they are coarse and early in inspiration. ABDOMEN: Distended, soft, nontender. NEUROLOGIC: She was grossly intact. LABORATORY DATA: On admission showed her white cell count was 6900, hemoglobin 6.7, hematocrit 20, MCV 101 and platelet count of 367,000 and her chemistry showed serum sodium 134, potassium 5.6, chloride 102, bicarbonate 24, anion gap of 8, BUN 57, creatinine 2.4. Estimated GFR was __ mL per minute. Her glucose was 104, calcium was 8.1. Total bilirubin, AST, ALT, alkaline phosphatase were normal. Total protein 7.1, albumin 2.6. The patient was admitted overnight and received 1 unit of packed RBCs. Her lab work showed her white cell count was 6500, hemoglobin 8.4, hematocrit 25, MCV 97 and platelet count of 335,000. Her chemistry also showed a serum sodium 137, potassium 4.6, chloride 103, bicarbonate 24, anion gap of 10, BUN 49, creatinine was 2.0. Her creatinine was 2. Estimated GFR was 23 mL per minute. Her glucose was 91 and calcium was 7.9. ASSESSMENT: Recurrent episodes of acute blood loss anemia. The patient has 1 unit of packed RBCs. Other medical problems include: A. Hypertension. B. Hyperlipidemia. C. Idiopathic pulmonary fibrosis. RUTH DR: Emiliano TID: [id number]
== END 2020-09-29 12:35 | disposition home or self-care (01) ==
LOC: ER 13:47 → 1 SOUTH 15:49
PROVIDERS: ADMIT Hospitalist; ATTEND Hospitalist
DX: D64.9 Anemia, unspecified (principal); I11.0 Hypertensive heart disease with heart failure; I50.9 Heart failure, unspecified; I48.91 Unspecified atrial fibrillation; J84.112 Idiopathic pulmonary fibrosis; E78.00 Pure hypercholesterolemia, unspecified; E78.5 Hyperlipidemia, unspecified; E03.9 Hypothyroidism, unspecified; H40.9 Unspecified glaucoma; Z98.890 Other specified postprocedural states
CPT/HCPCS: 36415; 36430; 80048; 80053; 85025; 85027; 86850; 86900; 86901; 86920; 99284; G0378; P9016; G0379

== ENCOUNTER → 2020-11-09 | Outpatient (CLI) | payer OTHER ==
--- NOTE | 2020-11-10 16:23 | RAD ---
XR CERVICAL SPINE 4-5V History: Reason: CERVALGIA / Spl. Instructions: / History: Technique: 5 views cervical spine. Comparison: None. Findings: Slight grade 1 anterior listhesis C7 on T1. Mild retrolisthesis C3 on C4 and C5 on C6. Moderate to advanced degenerative disc changes most prominent C5-C6 and C6-C7. Multilevel facet arthr opathy. Bony neuroforaminal narrowing. Normal vertebral body height. No fracture. Prevertebral soft t issues are unremarkable. Normal alignment C1 on C2. Impression: 1. Moderate to advanced multilevel cervical spondylosis. Electronically signed by: Isidro Nieves DO (11/10/2020 4:21 PM) [id number]
--- NOTE | 2020-11-10 16:25 | RAD ---
XR HAND 3 VIEWS History: Reason: BILATERAL JOINT PAIN / Spl. Instructions: / History: Technique: 3 views bilateral hands. Comparison: None. Findings: Left hand: Advanced first carpometacarpal DJD. Normal alignment. No fracture. Right hand: Moderate first carpometacarpal DJD. Normal alignment. No fracture. Impression: 1. Advanced left and moderate right first carpometacarpal DJD. Electronically signed by: Isidro Nieves DO (11/10/2020 4:23 PM) [id number]
== END ==
LOC: RAD 14:33
PROVIDERS: ATTEND Physician Assistant
DX: M47.812 Spondylosis without myelopathy or radiculopathy, cervical region (principal); M18.0 Bilateral primary osteoarthritis of first carpometacarpal joints
CPT/HCPCS: 72050; 73130

== ENCOUNTER 2020-11-11 14:17 | Inpatient (IN) | payer OTHER ==
[~2020-11-11] VITALS: Ht 154.9 cm; Wt 34.6 kg
[2020-11-11] VITALS (7 sets, daily range): BP systolic 101–142; BP diastolic 48–68
[2020-11-11 15:13] LABS: BASO % 1 % (0-3); EOS % 1 % (0-3); LYMPH # 1.1 x10^3/uL (1.0-4.8); LYMPH % 16 % (24-48); MEAN CORPUSCULAR HEMOGLOBIN 29 pg (25-35); MEAN CORPUSCULAR HGB CONC 32 g/dL (31-37); MEAN CORPUSCULAR VOLUME 91 fL (79-100); MONO # 0.5 x10^3/uL (0.0-1.1); MONO % 7 % (0-9); NEUT # 5.3 x10^3uL (1.8-7.7); NEUT % 76 % (31-73); PLATELET COUNT 445 x10^3/uL (140-400); RED BLOOD COUNT 1.96 x10^6/uL (3.50-5.40); RED CELL DISTRIBUTION WIDTH 17.1 % (11.5-14.5); WHITE BLOOD COUNT 6.9 x10^3/uL (4.0-11.0)
[2020-11-11] MEDS ORDERED: MORPHINE SULFATE 2 MG/ML DISP.SYRIN. IV ONE (15:15)
[2020-11-11 15:24] LABS: HEMOGLOBIN 5.7 g/dL (12.0-15.5)
[2020-11-11 15:25] LABS: HEMATOCRIT 17.8 % (36.0-47.0)
[2020-11-11 15:55] LABS: ALBUMIN 2.4 g/dL (3.4-5.0); ALBUMIN/GLOBULIN RATIO 0.6 (1.0-1.7); CALCIUM 8.3 mg/dL (8.5-10.1); CREATININE 2.8 mg/dL (0.6-1.0); GFR 15.9; TOTAL BILIRUBIN 0.1 mg/dL (0.2-1.0); TOTAL PROTEIN 6.7 g/dL (6.4-8.2)
--- NOTE | 2020-11-11 16:08 | PHYS DOC ---
Past History Past Medical History: Anemia, CHF, High Cholesterol, Renal Disease (SATINDER GOMEZ APRN) Past Surgical History: Other Additional Past Surgical Histo: colonoscopy (SATINDER GOMEZ APRN) Alcohol Use: None Drug Use: None (SATINDER GOMEZ APRN) General Adult EDM: Chief Complaint: ABNORMAL LABS HPI: HPI: Patient is a 89-year-old female presents from PCPs office for blood transfusion due to chronic anemia. Patient denies chest pain, shortness of breath, dizziness. Patient reports finger, knee, ankle pain due to rheumatoid arth ritis. Patient has been taking Tylenol 3 at home with little relief. History of chronic anemia, hypothyroidism. (SATINDER GOMEZ APRN) Review of Systems: Review of Systems: Constitutional: Denies fever or chills Eyes: Denies change in visual acuity HENT: Denies nasal congestion or sore throat Respiratory: Denies cough or shortness of breath Cardiovascular: Denies chest pain or edema GI: Denies abdominal pain, nausea, vomiting, bloody stools or diarrhea : Denies dysuria Musculoskeletal: Reports joint pain, knee, ankle from rheumatoid arthritis. Integument: Denies rash Neurologic: Denies headache, focal weakness or sensory changes Endocrine: Denies polyuria or polydipsia Lymphatic: Denies swollen glands Psychiatric: Denies depression or anxiety (SATINDER GOMEZ APRN) Current Medications: Current Meds: Current Medications Medications (Trade) Dose Ordered Sig/Allen Start Time Stop Time Status Last Admin Dose Admin Morphine Sulfate (Morphine 2mg Syringe) 2 mg 1X ONCE 11/11/20 15:15 11/11/20 15:16 DC 11/11/20 15:43 2 MG (SATINDER GOMEZ APRN) Allergies: Allergies: Allergies Coded Allergies Type Severity Reaction Last Updated Verified No Known Drug Allergies 08/12/20 No (SATINDER GOMEZ APRN) Physical Exam: PE: Constitutional: Well developed, well nourished, no acute distress, non-toxic appearance. [] HENT: Normocephalic, atraumatic, bilateral external ears normal, oropharynx moist, no oral exudates, nose normal. [] Eyes: PERRLA, EOMI, conjunctiva normal, no discharge. [] Neck: Normal range of motion, no tenderness, supple, no stridor. [] Cardiovascular:Heart rate regular rhythm, no murmur [] Lungs & Thorax: Bilateral breath sounds clear to auscultation [] Abdomen: Bowel sounds normal, soft, no tenderness, no masses, no pulsatile masses. [] Skin: Warm, dry, no erythema, no rash. [] Back: No tenderness, no CVA tenderness. [] Extremities: Tenderness and swelling to fingers, knees and ankles Neurologic: Alert and oriented X 3, normal motor function, normal sensory function, no focal deficits noted. [] Psychologic: Affect normal, judgement normal, mood normal. [] (SATINDER GOMEZ APRN) Current Patient Data: Labs: Laboratory Tests Test 11/11/20 14:32 White Blood Count 6.9 x10^3/uL (4.0-11.0) Red Blood Count 1.96 x10^6/uL (3.50-5.40) L Hemoglobin 5.7 g/dL (12.0-15.5) *L Hematocrit 17.8 % (36.0-47.0) *L Mean Corpuscular Volume 91 fL (79-100) Mean Corpuscular Hemoglobin 29 pg (25-35) Mean Corpuscular Hemoglobin Concent 32 g/dL (31-37) Red Cell Distribution Width 17.1 % (11.5-14.5) H Platelet Count 445 x10^3/uL (140-400) H Neutrophils (%) (Auto) 76 % (31-73) H Lymphocytes (%) (Auto) 16 % (24-48) L Monocytes (%) (Auto) 7 % (0-9) Eosinophils (%) (Auto) 1 % (0-3) Basophils (%) (Auto) 1 % (0-3) Neutrophils # (Auto) 5.3 x10^3uL (1.8-7.7) Lymphocytes # (Auto) 1.1 x10^3/uL (1.0-4.8) Monocytes # (Auto) 0.5 x10^3/uL (0.0-1.1) Eosinophils # (Auto) 0.0 x10^3/uL (0.0-0.7) Basophils # (Auto) 0.0 x10^3/uL (0.0-0.2) Vital Signs: Vital Signs Date Time Temp Pulse Resp B/P (MAP) Pulse Ox O2 Delivery O2 Flow Rate FiO2 11/11/20 15:44 89 15 143/59 (87) 99 Room Air 11/11/20 14:28 98.5 (SATINDER GOMEZ APRN) EKG: EKG: [] (SATINDER GOMEZ APRN) Radiology/Procedures: Radiology/Procedures: [] (SATINDER GOMEZ APRN) Heart Score: C/O Chest Pain: No Risk Factors: Risk Factors: DM, Current or recent (<one month) smoker, HTN, HLP, family history of CAD, obesity. Risk Scores: Score 0 - 3: 2.5% MACE over next 6 weeks - Discharge Home Score 4 - 6: 20.3% MACE over next 6 weeks - Admit for Clinical Observation Score 7 - 10: 72.7% MACE over next 6 weeks - Early Invasive Strategies (SATINDER GOMEZ APRN) Course & Med Decision Making: Course & Med Decision Making Pertinent Labs and Imaging studies reviewed. (See chart for details) [] 89-year-old female presents from PCPs office for chronic anemia and admission for blood transfusion. Patient is denying chest pain, shortness of breath, dizziness. Hemoglobin 5.7, hematocrit 7.8, RBC 1.96, platelets 445. Spoke with Dr. Alcala who will be admitting patient with anemia for a blood transfusion. Dr. Lees recommended 2 units PRBC to be infused. Patient has a potassium of 7. Patient given 10 units of regular insulin with D5 NS@ 100. Patient reports joint pain and swelling due to her rheumatoid arthritis. Patient given 2 mg of morphine for pain. Patient states her pain has improved. (SATINDER GOMEZ APRN) Dragon Disclaimer: Dragon Disclaimer: This electronic medical record was generated, in whole or in part, using a voice recognition dictation system. (SATINDER GOMEZ APRN) Attending Co-Sign The patient was seen and interviewed as well as examined at the bedside. The chart was reviewed. The case was discussed. Agree with the plan of care. (SHELLY LIN DO) Departure Departure: Impression: Primary Impression: Anemia Qualified Codes: D64.89 - Other specified anemias Additional Impressions: Hyperkalemia CHF (congestive heart failure) Qualified Codes: I50.9 - Heart failure, unspecified Disposition: [facility] Admitting Physician: Gina Alcala (SATINDER GOMEZ APRN) Condition: STABLE Referrals: BRADLEY YATES (PCP) SATINDER GOMEZ APRN Nov 11, 2020 16:08 SHELLY LIN DO Nov 12, 2020 06:05
[2020-11-11] MEDS ORDERED: IV DEXTROSE 5% - 0.9 % NACL 1,000 ML IV ONE (16:30)
[2020-11-11] MEDS ORDERED: INSULIN REGULAR 100 UNIT/ML 3ML VIAL. IV ONE (16:30)
[2020-11-11] MEDS ORDERED: DEXTROSE 50% 25 GM / 50ML DISP.SYRIN. IV ONE (16:30)
[2020-11-11] MEDS ORDERED: traMADol 50 MG TABLET PO PRN (19:45)
[2020-11-11] MEDS: prednisoLONE ACETATE 1% OPHTH SUSPENSION 5ML BOTTLE. OU SCH (21:00)
[2020-11-11] MEDS: FERROUS SULFATE 325 MG TABLET. PO SCH (21:14)
[2020-11-11] MEDS: DULoxetine HCL 30 MG CAPSULE.DR PO SCH (21:14)
[2020-11-12] VITALS (11 sets, daily range): BP systolic 100–158; BP diastolic 46–78
[2020-11-12] MEDS: LEVOTHYROXINE 50 MCG TABLET PO SCH (06:00)
--- NOTE | 2020-11-12 06:25 | EKG ---
[address] [address] Test Date: 2020-11-11 Test Time: 16:48:32 Pat Name: JAYE MOROCHO Department: Room: 105 A Gender: F Manager Flight: : [id number] Requested By: SATINDER GOMEZ Order Number: [id number] Reading MD: Measurements Intervals [place] Rate: 81 P: 44 MT: 158 QRS: -7 QRSD: 78 T: 19 QT: 358 QTc: 421 Interpretive Statements SINUS RHYTHM LEFTWARD AXIS OTHERWISE NORMAL ECG RI6.02 No previous ECG available for comparison
[2020-11-12 06:41] LABS: HEMATOCRIT 22.5 % (36.0-47.0); HEMOGLOBIN 7.4 g/dL (12.0-15.5); RED BLOOD COUNT 2.45 x10^6/uL (3.50-5.40); RED CELL DISTRIBUTION WIDTH 16.1 % (11.5-14.5); WHITE BLOOD COUNT 5.6 x10^3/uL (4.0-11.0)
[2020-11-12 06:49] LABS: CALCIUM 8.3 mg/dL (8.5-10.1); CREATININE 2.7 mg/dL (0.6-1.0); GFR 16.6; POTASSIUM 5.9 mmol/L (3.5-5.1)
[2020-11-12] MEDS: HYDROXYCHLOROQUINE 200 MG TABLET PO SCH (08:00)
[2020-11-12] MEDS: FERROUS SULFATE 325 MG TABLET. PO SCH ×2 (08:12→21:00)
[2020-11-12] MEDS: CHOLECALCIFEROL (VITAMIN D3) 1,000 UNIT TABLET PO SCH (08:13)
[2020-11-12] MEDS: prednisoLONE ACETATE 1% OPHTH SUSPENSION 5ML BOTTLE. OU SCH ×4 (08:13→21:00)
[2020-11-12] MEDS: LOSARTAN 50 MG TABLET. PO SCH (08:13)
[2020-11-12 09:32] LABS: BILIRUBIN,URINE NEG (NEG); CLARITY,URINE HAZY; COLOR,URINE YELLOW; GLUCOSE,URINE NEG (NEG)
[2020-11-12 09:33] LABS: NITRITE,URINE NEG (NEG); UROBILINOGEN,URINE 0.2 mg/dL (0.2 mg/dL)
[2020-11-12 09:34] LABS: BACTERIA,URINE 0 /HPF (0-FEW); RBC,URINE >40 /HPF (0-2); WBC,URINE RARE /HPF (0-4)
[2020-11-12] MEDS ORDERED: SODIUM POLYSTYRENE SULFONATE 15 GM/60 ML ORAL.SUSP. PO ONE (14:00)
[2020-11-12] MEDS ORDERED: diphenhydrAMINE ORAL ELIXIR 12.5 MG/5 ML ML PO PRN (14:15)
[2020-11-12] MEDS ORDERED: ACETAMINOPHEN 325 MG TABLET PO PRN (14:15)
--- NOTE | 2020-11-12 15:20 | HP ---
ADMIT DATE: 11/11/2020 HISTORY OF PRESENT ILLNESS: The patient is an 89-year-old female patient who yet again came to the Emergency Room with a complaint of severe anemia. She was seen at her primary care physician as her hemoglobin was found to be low at 5.7, hematocrit 17.8. The patient was therefore admitted for blood transfusion. She was also noted to have hyperkalemia on a background of chronic kidney disease. The patient herself did complain of generalized weakness, did complain of aches and pains due to flareup of her rheumatoid arthritis. In the Emergency Room, she has had lab work done which showed that she has an anemia, chronic kidney disease and hyperkalemia with type and cross 2 units of packed RBCs and was admitted for blood transfusion and treatment of her hyperkalemia. She apparently was given 10 units of regular Humulin insulin as well as D50. PAST MEDICAL HISTORY: Significant for hypertension, hyperlipidemia, hypothyroidism. She is also known to have glaucoma, idiopathic pulmonary fibrosis, atrial fibrillation that is rate controlled, not anticoagulated. She also has recurrent episodes of anemia due to blood loss. PAST SURGICAL HISTORY: Significant for left ankle fracture status post open reduction and internal fixation in 2014. ALLERGIES: She has no known drug allergies. FAMILY HISTORY: Significant for the fact that her father at age of 90. Her mother at age of 69. 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 She does not smoke, drink alcohol or recreational drugs. MEDICATIONS: She is currently on the following medication: She is on hydroxychloroquine sulfate 200 mg daily, ferrous sulfate 325 mg twice a day, losartan potassium 50 mg daily, tramadol 50 mg q.12 hourly, duloxetine 30 mg at bedtime. She is on prednisolone acetate both eyes 4 times a day, levothyroxine, sodium 50 mcg once a day, cholecalciferol, vitamin D 1000 units once a day. REVIEW OF SYSTEMS: As per history of present illness. PHYSICAL EXAMINATION: GENERAL: On arrival to the Emergency Room, the patient was pale, extremely cachectic, but no jaundice, cyanosis or thyromegaly, jugular distention or no lower limb edema. VITAL SIGNS: Heart rate was 79, blood pressure is 110/58, temperature was 98, respiratory rate was 18 and oxygen saturation was 96% on room air. HEAD, EYES, EARS, NOSE, AND THROAT: Normocephalic, atraumatic. NECK: Supple. HEART: Showed normal first and second heart sounds, no gallop, murmur. CHEST: Showed central trachea. Equal chest expansion, air entry, vesicular breath sounds with coarse early inspiratory crackles. I could not appreciate any rhonchi. ABDOMEN: Scaphoid, soft, nontender. NEUROLOGIC: She was grossly intact. LABORATORY DATA: Her lab work on admission showed a white cell count of 6900, hemoglobin 5.7, hematocrit 17.8, MCV 91, platelet count of 145,000 with manual differential showed 76% polymorphs, 16% lymphocytes, 7% monocytes. Her chemistry showed a serum sodium 136, potassium 7, chloride 104, bicarbonate 20, anion gap of 12, BUN 63, creatinine was 2.8, estimated GFR was 16 mL per minute, her glucose was 99, calcium was 8.3. Total bilirubin, AST, ALT, and alkaline phosphatase are normal. Total protein 6.2, albumin was 2.4. Her prothrombin time and INR are normal. Urinalysis showed the urine was yellow, hazy with a pH 5.5, specific gravity of 1.015. There was large amount of protein, negative for glucose and ketones, large amount of blood, negative for nitrite and leukocyte esterase. In summary, again, this is an 89-year-old female patient who yet again came with: 1. Anemia with a hemoglobin of 6, hematocrit 18, for which we will type and cross 2 units of packed RBCs. 2. Hyperkalemia. 3. Chronic kidney disease. 4. Hypertension. 5. Hypothyroidism. The patient was treated with D50 plus 10 units of regular insulin. We will transfuse 1 or 2 units. Repeat her labs and decide the further management accordingly. JOSE DR: Emiliano TID: [id number]
[2020-11-12 21:15] LABS: ANA INTERP Positive (.)
[2020-11-12] MEDS: DULoxetine HCL 30 MG CAPSULE.DR PO SCH (21:41)
--- NOTE | 2020-11-12 23:04 | PN ---
DATE: 11/12/2020 SUBJECTIVE: The patient is resting, slightly propped up in bed, in no apparent respiratory distress. On questioning her, she stated slightly better, continued to be generalized weakness and aches and pains. Did receive 1 unit of packed RBCs. Her potassium has slightly improved, but not still high. PHYSICAL EXAMINATION: GENERAL: When I examined her, she was pale, cachectic, but no jaundice, cyanosis or thyromegaly. No jugular venous distention. No limb edema. VITAL SIGNS: Heart rate was 60, blood pressure is 106/50, temperature was 98.2, respiratory rate was 18 and oxygen saturation was 99% on room air. HEAD, EYES, EARS, NOSE AND THROAT: Showed normocephalic, atraumatic. NECK: Supple. HEART: Showed normal first and second heart sounds, no gallop, rub or murmur. CHEST: Clear to auscultation, no crepitation or rhonchi. ABDOMEN: Distended, scaphoid, soft, nontender. NEUROLOGIC: She is hard of hearing, but otherwise all cranial nerves intact. She moves extremities without difficulty. LABORATORY DATA: This morning showed a white cell count of 5600, hemoglobin 7.4, hematocrit 22, MCV 92 and platelet count of 101,000. Her prothrombin time and INR are normal. Her chemistry showed a serum sodium 136, potassium 5.9, chloride 106, bicarbonate 20, anion gap of 10, BUN 64, creatinine was 2.7, estimated GFR was 16 mL Her glucose was 83 and calcium was 8.3. ASSESSMENT: 1. Chronic anemia, multifactorial including iron deficiency plus anemia of chronic kidney disease. 2. Hyperkalemia. 3. Chronic kidney disease. 4. Hypertension. 5. Hypothyroidism. 6. Pulmonary fibrosis. 7. Rheumatoid arthritis. PLAN: To tolerance transfuse 1 unit of packed RBCs, also start her on Kayexalate 30 grams once. We will repeat her labs again and once her potassium normalized, she can be discharged home. YONY DR: Emiliano TID: [id number]
[2020-11-13 06:56] LABS: HEMOGLOBIN 8.9 g/dL (12.0-15.5); RED BLOOD COUNT 2.93 x10^6/uL (3.50-5.40); RED CELL DISTRIBUTION WIDTH 15.8 % (11.5-14.5)
[2020-11-13 06:59] LABS: CALCIUM 7.9 mg/dL (8.5-10.1); CREATININE 2.6 mg/dL (0.6-1.0); GFR 17.4
[2020-11-13 07:29] VITALS: BP 128/57
[2020-11-13 07:56] VITALS: BP 128/57
[2020-11-13] MEDS: prednisoLONE ACETATE 1% OPHTH SUSPENSION 5ML BOTTLE. OU SCH (07:56)
[2020-11-13] MEDS: HYDROXYCHLOROQUINE 200 MG TABLET PO SCH (07:56)
[2020-11-13] MEDS: LEVOTHYROXINE 50 MCG TABLET PO SCH (07:56)
[2020-11-13] MEDS: FERROUS SULFATE 325 MG TABLET. PO SCH (07:56)
[2020-11-13] MEDS: LOSARTAN 50 MG TABLET. PO SCH (07:56)
[2020-11-13] MEDS: CHOLECALCIFEROL (VITAMIN D3) 1,000 UNIT TABLET PO SCH (07:56)
[2020-11-13] MEDS ORDERED: AMLO-186 PO (10:05)
--- NOTE | 2020-11-13 14:13 | DS ---
DATE OF DISCHARGE: 11/13/2020 HOSPITAL COURSE: The patient is an 89-year-old female patient who yet again came with anemia with a hemoglobin of 5.7, hematocrit 17.8. She was transfused 3 units of packed RBCs. On arrival, she was also hyperkalemic with a potassium of 7 and she was treated with Kayexalate and potassium came down to 5. She remained hemodynamically stable. Her H and H stabilized and potassium improved. A decision was made to discharge her back home. I will discontinue her losartan as probably the cause of her recurrent hyperkalemia, start her on amlodipine 5 mg once a day. PHYSICAL EXAMINATION: GENERAL: When I saw her this morning, she is resting, slightly propped up in bed in no apparent distress. She was pale, extremely cachectic with a body mass index only 14.4 kilograms per meter. There is no jaundice, cyanosis, no lymphadenopathy, no thyromegaly. No jugular venous distention. No limb edema. VITAL SIGNS: Her heart rate was 75, blood pressure is 128/57, temperature was 96.9, respiratory rate 20, and oxygen saturation was 94%. HEAD, EYES, EARS, NOSE AND THROAT: Normocephalic, atraumatic. NECK: Supple. HEART: Showed normal first and second heart sounds, no gallop, rub or murmur. CHEST: Clear to auscultation, no crepitation or rhonchi. ABDOMEN: Distended, soft, nontender. NEUROLOGIC: She was awake, alert, responding appropriately. All cranial nerves are intact. She moves extremities without difficulty. She has marked muscle wasting and weakness. Her intake was 580 and no output was recorded. LABORATORY DATA: Her lab work this morning showed a white cell count of 6000, hemoglobin 9, hematocrit 27, MCV 92 and platelet count of 388,000. Her chemistry showed a serum sodium 137, potassium 5, chloride 105, bicarbonate 22, anion gap of 10, BUN 60, creatinine 2.6. Estimated GFR was 17.4, glucose was 87 and calcium was 7.9. DISCHARGE MEDICATIONS: She was discharged home to continue on cholecalciferol, vitamin D 1000 units once a day, duloxetine for Cymbalta 30 mg once a day, ferrous sulfate 325 mg twice a day, hydroxychloroquine sulfate 200 mg once a day, levothyroxine sodium 50 mcg once a day, prednisolone acetate one drop to both eyes 4 times a day and tramadol 50 mg every 12 hours. I will discontinue her losartan and replace it with amlodipine and she will obviously follow up with her primary care physician and will probably be admitted again for transfusion within 2-3 weeks' time. PURA/ZONIA DR: Emiliano TID: [id number]
== END 2020-11-13 11:09 | disposition home or self-care (01) | DRG 640 ==
LOC: ER 14:17 → 1 SOUTH 17:28
PROVIDERS: ADMIT Internal Medicine; ATTEND Internal Medicine
PROC: 30233N1 Transfusion of Nonautologous Red Blood Cells into Peripheral Vein, Percutaneous Approach (ICD-10-PCS; principal; 2020-11-11)
DX: E87.5 Hyperkalemia (principal); E43 Unspecified severe protein-calorie malnutrition; I13.0 Hypertensive heart and chronic kidney disease with heart failure and stage 1 through stage 4 chronic kidney disease, or unspecified chronic kidney disease; Z68.1 Body mass index [BMI] 19.9 or less, adult; D50.0 Iron deficiency anemia secondary to blood loss (chronic); E78.00 Pure hypercholesterolemia, unspecified; I50.9 Heart failure, unspecified; M06.9 Rheumatoid arthritis, unspecified; E03.9 Hypothyroidism, unspecified; E78.5 Hyperlipidemia, unspecified; T46.5X5A Adverse effect of other antihypertensive drugs, initial encounter; J84.112 Idiopathic pulmonary fibrosis; I48.91 Unspecified atrial fibrillation; N18.9 Chronic kidney disease, unspecified; D63.1 Anemia in chronic kidney disease
CPT/HCPCS: 36415; 36430; 80048; 80053; 81001; 85025; 85027; 85610; 85651; 86038; 86850; 86900; 86901; 86920; 93005; 96374; 96375; J1815; J2270; P9016; 99285-25

== ENCOUNTER 2020-12-16 22:04 | Inpatient (IN) | payer OTHER ==
[~2020-12-16] VITALS: Ht 154.9 cm; Wt 38.0 kg
[~2020-12-16 22:04] MED LIST changes: +AMLO-186 PO
--- NOTE | 2020-12-16 22:20 | PHYS DOC ---
Past History Past Medical History: Anemia, CHF, High Cholesterol, Renal Disease Past Surgical History: Other Additional Past Surgical Histo: colonoscopy Alcohol Use: None Drug Use: None General Adult HPI: HPI: ".. I am so weak.. "...Pt. " She get 's very Anemic- bone marrow failure" - family member caretaker Patient is a 89 year old female retired [employer] coll[employer]on who presents with above hx and complaints severe weakness. Patient complaining of severe dyspnea with any activity. Patient has known history of bone marrow failure and chronic anemia. Has in the past required transfusions almost every 4 to 6 weeks. Patient is a DNR. Does follow-up with a corn lab technician. Patient has history of congestive heart failure, hyperlipidemia, chronic kidney disease, arthritis, hypothyroidism, and hypertension. Patient is very hard of hearing. Pt. Follow s with Georgette for care. Review of Systems: Review of Systems: Constitutional: Denies fever or chills Eyes: Denies change in visual acuity HENT: Denies nasal congestion or sore throat Respiratory: Complains of severe dyspnea with any activity Cardiovascular: Denies chest pain or edema GI: Denies abdominal pain, nausea, vomiting, bloody stools or diarrhea : Denies dysuria Musculoskeletal: Denies back pain or joint pain. Patient complains of generalized weakness Integument: Denies rash Neurologic: Denies headache, focal weakness or sensory changes. Endocrine: Denies polyuria or polydipsia Lymphatic: Denies swollen glands Psychiatric: Denies depression or anxiety Family History: Family History: Noncontributory to presentation Current Medications: Current Meds: See nursing for home meds Allergies: Allergies: Allergies Coded Allergies Type Severity Reaction Last Updated Verified No Known Drug Allergies 08/12/20 No Physical Exam: PE: Constitutional: A very frail and pale in appearance. [] HENT: Normocephalic, atraumatic, bilateral external ears normal, oropharynx moist, no oral exudates, nose normal. [] Eyes: PERRLA, EOMI, conjunctiva normal, no discharge. Glasses Neck: Normal range of motion, no tenderness, supple, no stridor. [] Cardiovascular: Tachycardia heart rate regular rhythm, no murmur [] Lungs & Thorax: Bilateral breath sounds equal apex with basilar crackles on auscultation [] Abdomen: Bowel sounds normal, soft, no tenderness, no masses, no pulsatile masses. [] Skin: Warm, dry, no erythema, no rash. Very pale Back: No tenderness, no CVA tenderness. [] Extremities: No tenderness, no cyanosis, no clubbing, ROM intact, no edema. Arthritic changes. No cording appreciated Neurologic: Alert and oriented X 3, very hard of hearing, moves extremities on request, appears to have distal sensory, no new focal deficits noted by patient or facilities locator. Psychologic: Affect anxious, , mood depressed EKG: EKG: My interpretation EKG shows a sinus tachycardia 102 bpm. Does have a leftward axis. No findings of acute STEMI of contralateral changes. Is an abnormal EKG. 2316 hrs. [] Radiology/Procedures: Radiology/Procedures: [] Heart Score: C/O Chest Pain: No HEART Score for Chest Pain: HEART Score for Chest Pain Response (Comments) Value History Moderately Suspicious 1 ECG Nonspecific Repolarizatio 1 Age > 65 2 Risk Factors 1 or 2 Risk Factors 1 Troponin < Normal Limit 0 Total 5 Risk Factors: Risk Factors: DM, Current or recent (<one month) smoker, HTN, HLP, family history of CAD, obesity. Risk Scores: Score 0 - 3: 2.5% MACE over next 6 weeks - Discharge Home Score 4 - 6: 20.3% MACE over next 6 weeks - Admit for Clinical Observation Score 7 - 10: 72.7% MACE over next 6 weeks - Early Invasive Strategies Course & Med Decision Making: Course & Med Decision Making Pertinent Labs and Imaging studies reviewed. (See chart for details) Discussed presentation, testing and treatment plan with Dr. Scales. Advised admit to his service and transfused 2 units of packed RBCs. Maintain the DNR status. Impression: 1. Complaints of generalized weakness and dyspnea 2. History of bone marrow failure 3. Anemia hemoglobin 4.6 4. Elevated D-dimer 3.22 5. Hyperkalemia 5.6 6. Acute renal insufficiency BUN 88 creatinine 2.7 7. CHF - BNP-6,994 8. DNR-no intubation, no shocks, no CPR ( Will take meds and Transfusions) 9. Malnutrition -Alb.2.4 [] Karl Disclaimer: Karl Disclaimer: This electronic medical record was generated, in whole or in part, using a voice recognition dictation system. Departure Departure: Referrals: BRADLEY YATES (PCP) Karl Disclaimer This chart was dictated in whole or in part using Voice Recognition software in a busy, high-work load, and often noisy Emergency Department environment. It may contain unintended and wholly unrecognized errors or omissions. JODY SILVERIO MD Dec 16, 2020 22:20
[2020-12-16] MEDS ORDERED: ACETAMINOPHEN 500 MG TABLET PO ONE (22:30)
[2020-12-16] MEDS ORDERED: FAMOTIDINE 20 MG/2 ML VIAL IVP ONE (22:30)
[2020-12-16] MEDS ORDERED: diphenhydrAMINE 50 MG/ML VIAL IV ONE (22:30)
[2020-12-16] MEDS ORDERED: IV NORMAL SALINE 1,000ML 1,000 ML IV SCH (22:30)
[2020-12-16 23:18] LABS: BASO # 0.1 x10^3/uL (0.0-0.2); BASO % 1 % (0-3); EOS # 0.1 x10^3/uL (0.0-0.7); EOS % 1 % (0-3); LYMPH # 1.2 x10^3/uL (1.0-4.8); LYMPH % 11 % (24-48); MEAN CORPUSCULAR HEMOGLOBIN 35 pg (25-35); MEAN CORPUSCULAR HGB CONC 31 g/dL (31-37); MEAN CORPUSCULAR VOLUME 112 fL (79-100); MONO # 0.8 x10^3/uL (0.0-1.1); MONO % 8 % (0-9); NEUT # 8.3 x10^3uL (1.8-7.7); NEUT % 79 % (31-73); PLATELET COUNT 339 x10^3/uL (140-400); RED BLOOD COUNT 1.32 x10^6/uL (3.50-5.40); RED CELL DISTRIBUTION WIDTH 24.9 % (11.5-14.5); WHITE BLOOD COUNT 10.5 x10^3/uL (4.0-11.0)
[2020-12-16 23:24] LABS: HEMATOCRIT 14.8 % (36.0-47.0); HEMOGLOBIN 4.6 g/dL (12.0-15.5)
[2020-12-16 23:25] LABS: CALCIUM 7.8 mg/dL (8.5-10.1); CREATININE 2.7 mg/dL (0.6-1.0); GFR 16.6; POTASSIUM 5.6 mmol/L (3.5-5.1)
[2020-12-16 23:37] LABS: ANISOCYTOSIS MOD; PLT ESTIMATE ADEQUATE (ADEQUATE)
[2020-12-16 23:38] LABS: ALBUMIN 2.4 g/dL (3.4-5.0); DIRECT BILIRUBIN 0.1 mg/dL (0.0-0.2); MAGNESIUM 2.4 mg/dL (1.8-2.4); TOTAL BILIRUBIN 0.2 mg/dL (0.2-1.0); TOTAL PROTEIN 6.6 g/dL (6.4-8.2)
[2020-12-16] MEDS ORDERED: FUROSEMIDE 40 MG/4 ML VIAL IVP ONE (23:45)
[2020-12-17] VITALS (12 sets, daily range): BP systolic 101–132; BP diastolic 51–64
[2020-12-17] MEDS ORDERED: ONDANSETRON PF 4 MG/2 ML VIAL. IVP PRN
--- NOTE | 2020-12-17 01:59 | NUR ---
PT ADMITTED TO [facility] VIA EMS ACCOMPANIED BY ER STAFF. PT AMBULATED FROM GURNEY TO BED X1 ASSIST. PT HAS LANGUAGE BARRIER AND CAN SPEAK AND UNDERSTANDING BENINESE MODERATELY. PT PROVIDED HOME MEDICATIONS AND VERBALIZED UNDERSTANDING OF POC. PT IS NOW RESTING COMFORTABLY IN BED.
[2020-12-17] MEDS ORDERED: ACETAMINOPHEN 325 MG TABLET PO PRN ×2 (02:30)
[2020-12-17] MEDS ORDERED: diphenhydrAMINE HCL 25 MG CAPSULE PO PRN (02:30)
--- NOTE | 2020-12-17 03:23 | NUR ---
BLOOD TRANSFUSION STARTED AT 0306. TUBING PRIMED WITH NORMAL SALINE AND THEN PRIMED W/ BLOOD. TRANSFUSION STARTED AT 75ML/HR, PATIENT MONITORED CLOSELY X15 MIN. NO REACTION NOTED, TRANSFUSION INCREASED TO 150ML/HR.
[2020-12-17] MEDS ORDERED: FUROSEMIDE 40 MG/4 ML VIAL IVP ONE (06:00)
[2020-12-17 07:11] LABS: BARBITURATES NEG (NEG); BENZODIAZEPINES NEG (NEG); CANNABINOIDS NEG (NEG); COCAINE NEG (NEG); METHADONE NEG (NEG); OPIATES NEG (NEG); PHENCYCLIDINE NEG (NEG)
[2020-12-17 07:12] LABS: AMPHETAMINE/METHAMPHETAMINE NEG (NEG)
[2020-12-17 07:14] LABS: BILIRUBIN,URINE NEG (NEG); CLARITY,URINE CLEAR; COLOR,URINE STRAW; GLUCOSE,URINE NEG (NEG); NITRITE,URINE NEG (NEG); UROBILINOGEN,URINE 0.2 mg/dL (0.2 mg/dL)
[2020-12-17 07:15] LABS: BACTERIA,URINE 0 /HPF (0-FEW); WBC,URINE RARE /HPF (0-4)
--- NOTE | 2020-12-17 07:22 | NUR ---
BLOOD TRANSFUSION 2ND UNIT BLOOD TRANSFUSION STARTED AT 0656. TUBING PRIMED WITH NORMAL SALINE AND THEN PRIMED WITH BLOOD. TRANSFUSION STARTED AT 75MLS AND PATIENT MONITORED CLOSELY X15MIN. NO REACTION NOTED, TRANSFUSION INCREASED TO 125MLS. WILL CONTINUE TO MONITOR. MYRIAM MUSA.
[2020-12-17] MEDS ORDERED: traMADol 50 MG TABLET PO PRN (09:00)
--- NOTE | 2020-12-17 09:19 | HP ---
ADMIT DATE: 12/16/2020 ATTENDING PHYSICIAN: Dr. Scales. CHIEF COMPLAINT: Weakness. HISTORY OF PRESENT ILLNESS: The patient is an 89-year-old female well known to us. 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 She has bone marrow failure with persistent anemia. Over the last 18 months, we have been giving her intermittent transfusions usually once a month. Today, her hemoglobin is down to 4.6 g/dL given the natural senescence of red blood cells. Her MCV is elevated at 112. She has had previous workup. She has not had a GI workup. She is a DNR per advanced directive. She was admitted for transfusion of packed red cells in a critically low hemoglobin and the patient was clearly symptomatic. I will also administer empiric folic acid and B12. These levels have been drawn in the past. PAST MEDICAL HISTORY: Significant for the persistent anemia, is most likely bone marrow failure consistent with a myeloproliferative disorder given her age and her presentation. She also has underlying depression and dementia. CURRENT MEDICATIONS: Reviewed. She was taking hydroxychloroquine, ferrous sulfate, amlodipine, tramadol, Cymbalta, prednisolone, Synthroid, and cholecalciferol. ALLERGIES: She has no known drug allergies. 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 FAMILY HISTORY: Noncontributory. REVIEW OF SYSTEMS: Significant for the generalized weakness. She is confused and does not understand or know what she wants. Continues therapy at this time. PHYSICAL EXAMINATION: GENERAL: When I saw her, this is a pleasant elderly female. INITIAL VITAL SIGNS: Showed a blood pressure 120/60, pulse 82 and regular. She was afebrile. Oxygen saturation 99% on room air. HEENT: Head is without trauma. Pupils are reactive. Sclerae nonicteric. Oropharynx clear. Conjunctivae are pale. NECK: Supple, no bruits. LUNGS: Clear. CARDIOVASCULAR: Showed distant heart tones. No gallop. ABDOMEN: Soft. EXTREMITIES: Without edema. NEUROLOGIC: Focally intact. Speech is fluent. LABORATORY DATA: Her BNP is elevated at 6900, potassium 5.6 mEq, creatinine is 2.7. Hemoglobin on admission was 4.6 g/dL. ASSESSMENT: 1. An 89-year-old female with symptomatic anemia. Hemoglobin critical of 4.5 g/dL. 2. Chronic kidney disease, stage IV. 3. Dementia. 4. History of congestive heart failure remotely. 5. Essential hypertension. PLAN: 1. Admit to the inpatient. 2. Transfusion of packed red cells to increase oxygen carrying capacity in this symptomatic patient. 3. Serial hemoglobins. 4. Empiric B12 and folate. 5. She is a DNR per advanced directive. 6. We should discuss with her burner shaft as to short-term and long-term goals. Her prognosis is quite poor. BLADE DR: aMribel TID: [id number] CC: NORMAN HAMILTON
[2020-12-17] MEDS: amLODIPine BESYLATE 5 MG TABLET PO SCH ×2 (12:00→12:17)
[2020-12-17] MEDS ORDERED: FERROUS SULFATE 325 MG TABLET. PO SCH (12:00)
[2020-12-17] MEDS ORDERED: FOLIC ACID 1 MG TABLET PO ONE (12:00)
[2020-12-17] MEDS ORDERED: CYANOCOBALAMIN (VITAMIN B-12) 1,000 MCG/ML VIAL. IM ONE (12:00)
[2020-12-17 12:32] LABS: BASO # 0.1 x10^3/uL (0.0-0.2); BASO % 1 % (0-3); EOS # 0.2 x10^3/uL (0.0-0.7); EOS % 2 % (0-3); HEMATOCRIT 30.4 % (36.0-47.0); LYMPH % 10 % (24-48); MEAN CORPUSCULAR HEMOGLOBIN 34 pg (25-35); MEAN CORPUSCULAR HGB CONC 34 g/dL (31-37); MEAN CORPUSCULAR VOLUME 101 fL (79-100); MONO # 0.8 x10^3/uL (0.0-1.1); MONO % 8 % (0-9); NEUT # 8.7 x10^3uL (1.8-7.7); NEUT % 80 % (31-73); PLATELET COUNT 338 x10^3/uL (140-400); RED BLOOD COUNT 3.02 x10^6/uL (3.50-5.40); RED CELL DISTRIBUTION WIDTH 19.3 % (11.5-14.5); WHITE BLOOD COUNT 10.8 x10^3/uL (4.0-11.0)
[2020-12-17 12:39] LABS: HEMOGLOBIN 10.2 g/dL (12.0-15.5)
[2020-12-17] MEDS ORDERED: prednisoLONE ACETATE 1% OPHTH SUSPENSION 5ML BOTTLE. OU SCH (13:00)
--- NOTE | 2020-12-17 14:51 | NUR ---
NURSING NOTE DISCHARGE PT DISCHARGED HOME VIA WHEELCHAIR. PT GIVEN WRITTEN AND VERBAL DISCHARGE INSTRUCTIONS. DR SINGH SPOKE WITH SET DECORATOR RICHARD TO UPDATE. NO SCRIPTS GIVEN. MYRIAM MUSA.
[2020-12-17] MEDS ORDERED: DULoxetine HCL 30 MG CAPSULE.DR PO SCH (21:00)
--- NOTE | 2020-12-17 21:09 | DS ---
DATE OF DISCHARGE: 12/17/2020 ATTENDING PHYSICIAN: Dr. Scales. FINAL DISCHARGE DIAGNOSES: 1. An 89-year-old female with symptomatic anemia. Admission hemoglobin was critically low at 4.5 g/dL. 2. Chronic kidney disease stage IV. 3. Dementia. 4. History of congestive heart failure, compensated. 5. Essential hypertension. HISTORY AND PHYSICAL: The patient is now 89. She is well known to us from previous admissions. She will turn 89 next month. She has significant bone marrow failure and chronic anemia, multiple admissions for transfusion. She is weak and tired. Her hemoglobin was down to 4.5 g/dL. PHYSICAL EXAMINATION: Please see my dictated note. PERTINENT LABORATORY AND X-RAY STUDIES: Interestingly enough, her MCV is elevated at 112. We did administer B12 and folate. Her platelet counts were adequate. Chemistry panel: Creatinine is 2.7 mg/dL, which is baseline for her BUN is 88, potassium 5.6 mEq. BNP 6900. Cardiac enzymes negative for coronary ischemia. COURSE IN THE HOSPITAL: The patient was admitted 2 units of packed red cells ordered to transfuse to increase oxygen carrying capacity ____ symptomatic female with known heart disease also, she tolerated well. Lasix was administered with excellent diuresis, about 1900 mL of urine was obtained following administration. Her hemoglobin repeated after transfusions up to 10.2 g/dL, white count was adequate. She did get some folic acid and a shot of B12. I feel these have been evaluated in the past ____ a problem. She remains a DNR. I spoke with her hospice administrator Lucero Pena, she will be discharged today with no changes on her meds. She will have followup visit. The other discussion then is to we can continue this indefinitely. The endpoint will be either stopping her transfusions, which then she will gradually decline and have a fairly peaceful with hospice or she will get the endpoint from transfusion. Eventually, she will get iron overload, which will then infiltrate her heart, liver and kidneys and make her heart failure ____. Regardless, her prognosis is still guarded. Clearly, she is in the winter of her life and further aggressive treatment needs to be considered. She was discharged then from our hospital in stable condition with explicit drug and followup care. RAMÓN/LONNIE DR: MISSY/kulwinder TID: [id number] CC: BRADLEY YATES PA
[2020-12-18] MEDS ORDERED: LEVOTHYROXINE 50 MCG TABLET PO SCH (07:30)
[2020-12-18] MEDS ORDERED: HYDROXYCHLOROQUINE 200 MG TABLET PO SCH (08:00)
--- NOTE | 2020-12-20 13:00 | EKG ---
[address] [address] Test Date: 2020-12-16 Test Time: 23:16:30 Pat Name: JAYE MOROCHO Department: Room: 105 A Gender: F Economic Development Coordinator: NOAH : [id number] Requested By: JODY SILVERIO Order Number: [id number] Reading MD: Measurements Intervals [place] Rate: 102 P: 40 AK: 144 QRS: -14 QRSD: 76 T: -2 QT: 336 QTc: 442 Interpretive Statements SINUS TACHYCARDIA LEFTWARD AXIS NO SPECIFIC ECG ABNORMALITIES RI6.02 No previous ECG available for comparison
== END 2020-12-17 14:53 | disposition home or self-care (01) | DRG 808 ==
LOC: ER 22:04 → 1 SOUTH 23:49
PROVIDERS: ADMIT Hospitalist; ATTEND Hospitalist
PROC: 30233N1 Transfusion of Nonautologous Red Blood Cells into Peripheral Vein, Percutaneous Approach (ICD-10-PCS; principal; 2020-12-16)
DX: D61.9 Aplastic anemia, unspecified (principal); E43 Unspecified severe protein-calorie malnutrition; I13.0 Hypertensive heart and chronic kidney disease with heart failure and stage 1 through stage 4 chronic kidney disease, or unspecified chronic kidney disease; N18.4 Chronic kidney disease, stage 4 (severe); Z68.1 Body mass index [BMI] 19.9 or less, adult; E03.9 Hypothyroidism, unspecified; E78.00 Pure hypercholesterolemia, unspecified; E78.5 Hyperlipidemia, unspecified; E87.5 Hyperkalemia; F03.90 Unspecified dementia, unspecified severity, without behavioral disturbance, psychotic disturbance, mood disturbance, and anxiety; H91.90 Unspecified hearing loss, unspecified ear; I50.9 Heart failure, unspecified; Z66 Do not resuscitate; F32.9 Major depressive disorder, single episode, unspecified; M19.90 Unspecified osteoarthritis, unspecified site
CPT/HCPCS: 36415; 36430; 80048; 80076; 80307; 81001; 82550; 83690; 83735; 83880; 84443; 84484; 85025; 85045; 85379; 85610; 86850; 86900; 86901; 86920; 93005; 96361; 96374; 96375; J1200; J1940; J3420; J3490; P9016; 99285-25; J7030